=== PATIENT | female | born 1975 | race Caucasian/White ===

== ENCOUNTER 2016-11-02 13:29 | Observation (INO) | payer OTHER ==
[2016-11-02 13:36] VITALS: TEMP 98
[2016-11-02] MEDS ORDERED: ASPIRIN 81 MG CHEW PO STA (13:57)
[2016-11-02] MEDS ORDERED: NITROGLYCERIN OINT 1 INCH/GM PACKET TOPICAL STA (13:57)
--- NOTE | 2016-11-02 14:01 | ED ---
General Adult HPI - General Chief complaint: Chest Pain Stated complaint: chest pain/syncope/dizziness Source: patient, RN notes reviewed Mode of arrival: wheelchair Limitations: no limitations - History of Present Illness Initial comments: This is a 41-year-old female presents emergency Department complaining of chest pain for the last couple of days. Patient states it just occurs when she sitting around and under no stress or exertion. Patient states today she passed out on 2 occasions when she tried to stand up. Patient states she sat back down with passed out for a few seconds according to her mother and then she woke back up with some chest pain. Patient states she has not been short of breath associated with that she has had no diaphoresis associated with it. Patient denies any nausea or vomiting. Patient denies any headache patient denies numbness weakness. Patient denies any recent fever chills or cough. Patient denies any recent injury or trauma. - Related Data Home Medications Medication Instructions Recorded Confirmed ALPRAZolam [Xanax] 1 mg PO TID 11/02/16 11/02/16 Albuterol Inhaler [Ventolin Hfa 1 - 2 puff INHALATION RT-Q6H PRN 11/02/16 Inhaler] Cyclobenzaprine [Flexeril] 10 mg PO TID 11/02/16 11/02/16 HYDROcodone/APAP 10-325MG [[place] 1 tab PO QID PRN 11/02/16 11/02/16 10-325] QUEtiapine FUMARATE [SEROquel XR] 150 mg PO HS 11/02/16 11/02/16 traMADol HCL [Ultram] 50 mg PO Q4HR PRN 11/02/16 11/02/16 Allergies Allergy/AdvReac Type Severity Reaction Status Date / Time Penicillins Allergy Rash/Hives Verified 11/02/16 14:21 Review of Systems ROS Statement: Those systems with pertinent positive or pertinent negative responses have been documented in the HPI. ROS Other: All systems not noted in ROS Statement are negative. Past Medical History Additional Past Medical History / Comment(s): chronic back and neck pain History of Any Multi-Drug Resistant Organisms: None Reported Past Surgical History: Back Surgery Past Psychological History: No Psychological Hx Reported Smoking Status: Current every day smoker Past Alcohol Use History: None Reported Past Drug Use History: None Reported General Exam - General Exam Comments Initial Comments: GENERAL: Patient is well-developed and well-nourished. Patient is nontoxic and well- hydrated and is in mild distress. ENT: Neck is soft and supple. No significant lymphadenopathy is noted. Oropharynx is clear. Moist mucous membranes. Neck has full range of motion without eliciting any pain. EYES: The sclera were anicteric and conjunctiva were pink and moist. Extraocular movements were intact and pupils were equal round and reactive to light. Eyelids were unremarkable. PULMONARY: Unlabored respirations. Good breath sounds bilaterally. No audible rales rhonchi or wheezing was noted. CARDIOVASCULAR: There is a regular rate and rhythm without any murmurs gallops or rubs. ABDOMEN: Soft and nontender with normal bowel sounds. No palpable organomegaly was noted. There is no palpable pulsatile mass. SKIN: Skin is clear with no lesions or rashes and otherwise unremarkable. NEUROLOGIC: Patient is alert and oriented x3. Cranial nerves II through XII are grossly intact. Motor and sensory are also intact. Normal speech, volume and content. Symmetrical smile. MUSCULOSKELETAL: Normal extremities with adequate strength and full range of motion. No lower extremity swelling or edema. No calf tenderness. LYMPHATICS: No significant lymphadenopathy is noted PSYCHIATRIC: Normal psychiatric evaluation. Normal interpersonal interactions appears functionally intact in deals appropriately with others. No signs of depression. No signs of anxiety. Limitations: no limitations Course Vital Signs 11/02/16 11/02/16 11/02/16 13:34 14:56 14:57 Temperature 98 F Pulse Rate 80 Respiratory 20 Rate Blood Pressure 119/82 Blood Pressure 111/71 112/72 [Right Arm] O2 Sat by Pulse 100 Oximetry 11/02/16 15:00 Temperature Pulse Rate 84 Respiratory 20 Rate Blood Pressure 112/72 Blood Pressure [Right Arm] O2 Sat by Pulse 95 Oximetry Medical Decision Making - Medical Decision Making EKG shows normal sinus rhythm at 82 bpm NV interval is 122 QRS is 86 QT interval 378 QTC is 441 per patient's EKG shows no ST segment elevation or depression or T-wave abnormality is noted. Chest x-ray shows a right upper lobe mass. CAT scan of the chest shows a possible neoplasm in the right upper lobe no clots are noted. I spoke with the depression agreed to admit the patient admitted the patient I wrote admitting orders. - Lab Data Result diagrams: 11/02/16 13:42 11/02/16 13:42 Lab Results 11/02/16 11/02/16 11/02/16 Range/Units 13:42 13:42 13:42 WBC 7.5 (3.8-10.6) k/uL RBC 4.46 (3.80-5.40) m/uL Hgb 14.6 (11.4-16.0) gm/dL Hct 44.1 (34.0-46.0) % MCV 99.0 (80.0-100.0) fL MCH 32.8 (25.0-35.0) pg MCHC 33.1 (31.0-37.0) g/dL RDW 14.3 (11.5-15.5) % Plt Count 340 (150-450) k/uL Neutrophils % 64 % Lymphocytes % 27 % Monocytes % 3 % Eosinophils % 5 % Basophils % 0 % Neutrophils # 4.8 (1.3-7.7) k/uL Lymphocytes # 2.0 (1.0-4.8) k/uL Monocytes # 0.3 (0-1.0) k/uL Eosinophils # 0.4 (0-0.7) k/uL Basophils # 0.0 (0-0.2) k/uL PT (9.0-12.0) sec INR (<1.2) APTT (22.0-30.0) sec Sodium 138 (137-145) mmol/L Potassium 3.9 (3.5-5.1) mmol/L Chloride 104 (98-107) mmol/L Carbon Dioxide 24 (22-30) mmol/L Anion Gap 10 mmol/L BUN 7 (7-17) mg/dL Creatinine 0.65 (0.52-1.04) mg/dL Est GFR (MDRD) Af Amer >60 (>60 ml/min/1.73 sqM) Est GFR (MDRD) Non-Af >60 (>60 ml/min/1.73 sqM) Glucose 139 H (74-99) mg/dL Calcium 9.1 (8.4-10.2) mg/dL Magnesium 1.8 (1.6-2.3) mg/dL Total Bilirubin 0.4 (0.2-1.3) mg/dL AST 23 (14-36) U/L ALT 31 (9-52) U/L Alkaline Phosphatase 73 (38-126) U/L Total Creatine Kinase 45 (30-135) U/L CK-MB (CK-2) <0.2 (0.0-2.4) ng/mL CK-MB (CK-2) Rel Index Troponin I <0.012 (0.000-0.034) ng/mL Total Protein 6.8 (6.3-8.2) g/dL Albumin 4.1 (3.5-5.0) g/dL 11/02/16 Range/Units 13:42 WBC (3.8-10.6) k/uL RBC (3.80-5.40) m/uL Hgb (11.4-16.0) gm/dL Hct (34.0-46.0) % MCV (80.0-100.0) fL MCH (25.0-35.0) pg MCHC (31.0-37.0) g/dL RDW (11.5-15.5) % Plt Count (150-450) k/uL Neutrophils % % Lymphocytes % % Monocytes % % Eosinophils % % Basophils % % Neutrophils # (1.3-7.7) k/uL Lymphocytes # (1.0-4.8) k/uL Monocytes # (0-1.0) k/uL Eosinophils # (0-0.7) k/uL Basophils # (0-0.2) k/uL PT 9.9 (9.0-12.0) sec INR 1.0 (<1.2) APTT 23.3 (22.0-30.0) sec Sodium (137-145) mmol/L Potassium (3.5-5.1) mmol/L Chloride (98-107) mmol/L Carbon Dioxide (22-30) mmol/L Anion Gap mmol/L BUN (7-17) mg/dL Creatinine (0.52-1.04) mg/dL Est GFR (MDRD) Af Amer (>60 ml/min/1.73 sqM) Est GFR (MDRD) Non-Af (>60 ml/min/1.73 sqM) Glucose (74-99) mg/dL Calcium (8.4-10.2) mg/dL Magnesium (1.6-2.3) mg/dL Total Bilirubin (0.2-1.3) mg/dL AST (14-36) U/L ALT (9-52) U/L Alkaline Phosphatase (38-126) U/L Total Creatine Kinase (30-135) U/L CK-MB (CK-2) (0.0-2.4) ng/mL CK-MB (CK-2) Rel Index Troponin I (0.000-0.034) ng/mL Total Protein (6.3-8.2) g/dL Albumin (3.5-5.0) g/dL Disposition Clinical Impression: Mass of right lung Disposition: ADMITTED IP TO THIS HOSP Referrals: Bryan Caputo MD [Primary Care Provider] - 1-2 days Time of Disposition: 15:53
--- NOTE | 2016-11-02 14:20 | XR ---
EXAMINATION TYPE: XR chest 2V DATE OF EXAM: 11/02/2016 COMPARISON: NONE HISTORY: Chest pain. TECHNIQUE: Frontal and lateral views of the chest are obtained. FINDINGS: There is a 3.6 cm mass overlying the right upper lobe, thought to be located posteriorly o n the lateral image. There is a spiculated margin of this mass and internal air bronchograms includin g the segmental bronchi to the right upper lobe. No other discrete masses are appreciated. No pneumot horax or pleural effusion. The cardiac silhouette size is within normal limits. The osseous structu res are intact. IMPRESSION: 3.6 cm spiculated mass overlying the right upper lobe, concerning for pulmonary neoplasm . Enhanced CT thorax is recommended for further characterization, localization, and evaluation for ad enopathy.
[2016-11-02 14:22] LABS: Basophils % (A) 0 %; CH 32.7; CHCM 33.1; Eosinophils # (A) 0.4 k/uL (0-0.7); Eosinophils % (A) 5 %; HCT 44.1 % (34.0-46.0); HDW 2.12; HGB 14.6 gm/dL (11.4-16.0); Luc # (Auto) 0.07; Luc % (Auto) 1; Lymphocytes % (A) 27 %; MCH 32.8 pg (25.0-35.0); MCHC 33.1 g/dL (31.0-37.0); Mean Platelet Volume 7.3; Monocytes # (A) 0.3 k/uL (0-1.0); Monocytes % (A) 3 %; Neutrophils # (A) 4.8 k/uL (1.3-7.7); Neutrophils % (A) 64 %; RBC 4.46 m/uL (3.80-5.40); RDW 14.3 % (11.5-15.5); WBC 7.5 k/uL (3.8-10.6); WBC (Perox) 7.49
[2016-11-02 14:25] LABS: ALT 31 U/L (9-52); AST 23 U/L (14-36); Alkaline Phosphatase 73 U/L (38-126); Anion Gap 10 mmol/L; Blood Urea Nitrogen 7 mg/dL (7-17); Calcium 9.1 mg/dL (8.4-10.2); Carbon Dioxide 24 mmol/L (22-30); Chloride 104 mmol/L (98-107); Glucose 139 mg/dL (74-99); Magnesium 1.8 mg/dL (1.6-2.3); Non-African American GFR(MDRD) >60 (>60 ml/min/1.73 sqM); Potassium 3.9 mmol/L (3.5-5.1); Sodium 138 mmol/L (137-145); Total Bilirubin 0.4 mg/dL (0.2-1.3); Total Protein 6.8 g/dL (6.3-8.2)
[2016-11-02 14:27] LABS: Partial Thromboplastin Time 23.3 sec (22.0-30.0); Prothrombin Time 9.9 sec (9.0-12.0)
[2016-11-02 14:33] LABS: Creatine Kinase 45 U/L (30-135)
[2016-11-02] MEDS ORDERED: RX INFO: IV CONTRAST WAS GIVEN 1 EACH MISC MISCELLANE PRN (14:40)
[2016-11-02 14:45] LABS: Creatine Kinase MB <0.2 ng/mL (0.0-2.4); Troponin I <0.012 ng/mL (0.000-0.034)
--- NOTE | 2016-11-02 15:20 | CT ---
CT CHEST FOR PULMONARY EMBOLISM. EXAMINATION TYPE: CT chest angio for PE DATE OF EXAM: 11/02/2016 INDICATION: Pain syncope CT DLP: 460 mGycm, Automated exposure control for dose reduction was used. CONTRAST: Patient injected with 80 mL of Omnipaque 350. COMPARISON: NONE TECHNIQUE: CT of the chest is performed on a spiral scan at 2 mm thick sections. Study is performed with intravenous contrast timed for evaluation for pulmonary embolism. This will limit additional po rtions of the evaluation. 3-D MIP images reconstructed by the technologist are reviewed on the compu ter in the coronal and sagittal planes. FINDINGS: No persistent filling defects are evident to suggest an acute pulmonary embolism. Couple small pretracheal and aortopulmonic window lymph nodes are present. Enlarged lymphadenopathy i s not identified. Some subcarinal adenopathy may be present, not enlarged by CT criteria. The ascend ing aorta diameter at the level of the main pulmonary artery is 2.5 cm. The main pulmonary artery di ameter at the bifurcation is 2.7 cm. There is a 2.7 x 2.9 cm lobulated right upper lobe nodule. Limited CT section through the upper abdomen are unremarkable. IMPRESSIONS: 1. No acute pulmonary embolism. 2. Lobular right upper lobe mass. Findings are suspicious for neoplasm. Workup such as with PET/CT is recommended.
[2016-11-02] MEDS ORDERED: SODIUM CHLORIDE 0.9% 1,000 ML IV ONE (15:53)
[2016-11-02] MEDS ORDERED: traMADol 50 MG TAB PO PRN (16:48)
[2016-11-02] MEDS ORDERED: HYDROcodone/APAP 10-325MG 1 EACH TAB PO PRN (16:48)
[2016-11-02] MEDS ORDERED: IPRATROPIUM-ALBUTEROL 3 ML NEB INHALATION PRN (16:50)
[2016-11-02 16:53] VITALS: BP 108/72; PULSE 59; RESP 16
[2016-11-02] MEDS ORDERED: NICOTINE 21MG/24HR PATCH TRANSDERM SCH (17:00)
[2016-11-02] MEDS ORDERED: ALPRAZolam 0.5 MG TAB PO SCH (17:00)
[2016-11-02] MEDS ORDERED: CYCLOBENZAPRINE 10 MG TAB PO SCH (17:00)
[2016-11-03] MEDS ORDERED: ENOXAPARIN 40 MG/0.4 ML SYRINGE SQ SCH (09:00)
--- NOTE | 2016-11-18 18:50 | DS ---
HISTORY AND PHYSICAL EXAMINATION/DISCHARGE SUMMARY: DATE OF ADMISSION: 11/02/16 DATE LEFT AGAINST MEDICAL ADVICE: 11/02/16 FINAL DIAGNOSES: 1. Chest pain. 2. Anterior chest wall pain. HOSPITAL COURSE: This patient presented with chest pain and as soon as was admitted, decided to leave AGAINST MEDICAL ADVICE. The patient was not seen by me. For more details, refer to the ER notes. This is a history and physical examination and discharge summary not seen by me. GOOD
== END 2016-11-02 18:22 | disposition left against medical advice (07) ==
LOC: EC 13:29 → 5ONC 15:53 → INTOOBSV 15:53
PROVIDERS: ADMIT Hospitalist; ATTEND Hospitalist
DX: R91.8 Other nonspecific abnormal finding of lung field (principal); R07.89 Other chest pain; R55 Syncope and collapse; M54.9 Dorsalgia, unspecified; G89.29 Other chronic pain; M54.2 Cervicalgia; F17.200 Nicotine dependence, unspecified, uncomplicated; Z88.0 Allergy status to penicillin; Z53.21 Procedure and treatment not carried out due to patient leaving prior to being seen by health care provider; Z79.891 Long term (current) use of opiate analgesic; Z79.899 Other long term (current) drug therapy
CPT/HCPCS: 96360; 96361; 99285; 36415; 93005; 80053; 82550; 82553; 83735; 84484; 85025; 85610; 85730; 71020; 71275; G0378; Q9967

== ENCOUNTER → 2016-11-18 | Outpatient (CLI) | payer OTHER | END | disposition home or self-care (01) | LOC: RADPETMAIN 08:16 | PROVIDERS: ATTEND Family Medicine | DX: Z53.9 Procedure and treatment not carried out, unspecified reason (principal) ==

== ENCOUNTER → 2016-11-18 | Outpatient (CLI) | payer OTHER ==
--- NOTE | 2016-11-18 19:36 | MR ---
EXAMINATION TYPE: MR brain wo/w con DATE OF EXAM: 11/18/2016 COMPARISON: NONE HISTORY: Lung Ca / headaches CONTRAST: Performed utilizing 15 mL intravenous MultiHance gadolinium contrast. TECHNIQUE: Multiplanar, multiecho imaging on a 3.0 Tiffanie magnet is performed through the brain. Stud y is performed within 24 hours of arrival to the hospital. The craniovertebral junction is normal. The pituitary is normal. Left A1 segment is not well visual ized. Diffusion-weighted imaging is performed. No abnormal hyperintensity is present to suggest an acute i ntracranial infarct or acute ischemic change. There are scattered punctate areas of hyperintensity on T2 and Inversion Recovery weighted sequences which are non-specific but can be related to microvascular ischemic changes. Ventricles and sulci are appropriate for the patient age. There is mucosal thickening through the right maxillary sinus. Scattered ethmoid air cell mucosal thi ckening is present. Minimal mucosal thickening may be within the frontal sinuses. IMPRESSIONS: 1. No suspicious changes of metastatic disease. 2. No abnormal changes to account for patient headache.
--- NOTE | 2016-11-19 08:49 | PE ---
EXAMINATION TYPE: PET CT fusion skull to thigh DATE OF EXAM: 11/18/2016 COMPARISON: CTA chest 11/02/2016 Prior PET/CT: None HISTORY: Right upper lobe mass TECHNIQUE: Following the intravenous administration of 14.9 mCi of F-18 FDG, whole body images are p erformed from the skull base to the midthigh. Images are reviewed on the computer in the coronal, ax ial, and sagittal planes. Reconstructed rotating images are created on independent workstation and r eviewed on the computer. A localization and attenuation correction CT is performed in conjunction w ith the PET scan. DLP: 263.85 mGycm SCAN: Initial Blood glucose: 95 mg/dL Average Mediastinum SUV: 1.6 Average Liver SUV: 2.2 FINDINGS: NECK: There is some focal uptake at the right acromioclavicular junction, likely inflammatory degene rative change. This measures 1.9 SUV. THORAX: There is intense uptake within the posterior right upper lobe lung mass with an SUV value of 18 compatible with neoplasm. There is a right axillary lymph node with intermediate uptake 1.4. This could be related to inflammat ory change. A metastatic lesion is not entirely excluded. No suspicious mediastinal or hilar uptake is evident. Remainder of the lungs appear clear. ABDOMEN: No suspicious uptake. The liver is heterogenous limiting the evaluation. PELVIS: No abnormal uptake OSSEOUS STRUCTURES: There is some mild uptake above the left femoral head within the acetabulum may b e degenerative in nature. Suspicious focal uptake to suggest metastatic lesion considered less likely . Inflammatory change within SUV value 1.8 is at the left L5-S1 disc space. Suspicious uptake within the osseous structures is not identified. LOCALIZATION CT: The ascending thoracic aorta at the level the main pulmonary artery is 2.7 cm. The m ain pulmonary artery at the bifurcation is 3.4 cm. Consider pulmonary hypertension differential. COMPARISON: Lung mass in the posterior medial right upper lobe measuring 3.0 x 3.4 cm has enlarged ov er the interval from 11/02/2016. IMPRESSION: 1. Posterior right upper lobe mass with marked SUV elevation compatible with a primary neoplasm. 2. Suspicious changes for metastatic disease is not identified.
== END | disposition home or self-care (01) ==
LOC: RADMRIMAIN 07:20
PROVIDERS: ATTEND Internal Medicine Hematology & Oncology
DX: C34.11 Malignant neoplasm of upper lobe, right bronchus or lung (principal); R51 Headache
CPT/HCPCS: 78815; 70553; A9552; A9577

== ENCOUNTER → 2016-11-24 | Outpatient (CLI) | payer OTHER ==
--- NOTE | 2016-11-24 16:55 | ECHOF ---
Referral Reason:R07.9 Chest Pain MEASUREMENTS -------- HEIGHT: 165.1 cm WEIGHT: 66.7 kg BP: 133/70 RVIDd: 1.8 cm (< 3.3) IVSd: 1.0 cm (0.6 - 1.1) LVIDd: 4.7 cm (3.9 - 5.3) LVPWd: 1.0 cm (0.6 - 1.1) IVSs: 1.3 cm LVIDs: 3.5 cm LVPWs: 1.2 cm LAESV Index (A-L): 16.83 ml/m Ao Diam: 2.7 cm (2.0 - 3.7) AV Cusp: 1.6 cm (1.5 - 2.6) LA Diam: 1.8 cm (2.7 - 3.8) MV EXCURSION: 23.948 mm (> 18.000) MV EF SLOPE: 181 mm/s (70 - 150) EPSS: 1.1 cm MV E Brock: 0.76 m/s MV DecT: 292 ms MV A Brock: 0.60 m/s MV E/A Ratio: 1.27 RAP: 5.00 mmHg RVSP: 18.74 mmHg FINDINGS -------- Sinus rhythm. This was a technically good study. Overall left ventricular systolic function is normal with, an EF between 60 - 65 %. The right ventricle is normal in size and function. Normal LA size by volume 22+/-6 ml/m2. The right atrium is normal in size. There is mild aortic valve sclerosis. There is no evidence of aortic regurgitation. There is no evidence of aortic stenosis. The mitral valve is normal. There is trace mitral regurgitation. Trace tricuspid regurgitation present. There is no evidence of pulmonary hypertension. The right ventricular systolic pressure, as measured by Doppler, is 18.74mmHg. Trace/mild (physiologic) pulmonic regurgitation. The aortic root size is normal. Normal inferior vena cava with normal inspiratory collapse consistent with estimated right atrial pressure of 5 mmHg. The pericardium is normal. There is no pericardial effusion. CONCLUSIONS -------- 1. Sinus rhythm. 2. Trace/mild (physiologic) pulmonic regurgitation. 3. The aortic root size is normal. 4. There is no pericardial effusion. 5. This was a technically good study. 6. Overall left ventricular systolic function is normal with, an EF between 60 - 65 %. 7. Normal LA size by volume 22+/-6 ml/m2. 8. There is mild aortic valve sclerosis. 9. There is trace mitral regurgitation. 10. Trace tricuspid regurgitation present. 11. There is no evidence of pulmonary hypertension. 12. The right ventricular systolic pressure, as measured by Doppler, is 18.74mmHg. MINISTER ASSISTANT: Jamal Gastelum RDCS
== END | disposition home or self-care (01) ==
LOC: RADECHMAIN 14:23
PROVIDERS: ATTEND Family Medicine
DX: I08.1 Rheumatic disorders of both mitral and tricuspid valves (principal); R07.9 Chest pain, unspecified
CPT/HCPCS: 93306

== ENCOUNTER 2016-12-04 01:35 | Emergency (ER) | payer OTHER ==
[2016-12-04] MEDS ORDERED: ALBUTEROL NEBULIZED 2.5 MG/3 ML INHALATION STA (01:53)
--- NOTE | 2016-12-04 01:57 | ED ---
General Adult HPI - General Chief complaint: Chest Pain Stated complaint: HUBER Time Seen by Provider: 12/04/16 01:36 Source: patient, family, EMS, RN notes reviewed, old records reviewed Mode of arrival: EMS Limitations: no limitations - History of Present Illness Initial comments: 41-year-old female presents with a one month history of difficulty breathing and chest tightness. Patient has recent diagnosis of lung cancer and is currently awaiting medical clearance prior to resection. She is not on chemotherapy. She was also diagnosed with emphysema. She does have a long history of smoking, currently smoking half pack of cigarettes daily. Additional past medical history of chronic pain for which she takes multiple medications. She has no history of heart disease. She denies cough denies fever. Denies any radiating chest pain. Denies lower extremity swelling or tenderness. Patient's symptoms have not changed over the last month. She has been seen both at this hospital and outside hospital for the same symptoms. - Related Data Home Medications Medication Instructions Recorded Confirmed ALPRAZolam [Xanax] 1 mg PO TID 11/02/16 12/04/16 Albuterol Inhaler [Ventolin Hfa 1 - 2 puff INHALATION RT-Q6H PRN 11/02/16 Inhaler] Cyclobenzaprine [Flexeril] 10 mg PO TID 11/02/16 12/04/16 HYDROcodone/APAP 10-325MG [[place] 1 tab PO QID PRN 11/02/16 12/04/16 10-325] QUEtiapine FUMARATE [SEROquel XR] 150 mg PO HS 11/02/16 12/04/16 traMADol HCL [Ultram] 50 mg PO Q4HR PRN 11/02/16 12/04/16 Previous Rx's Medication Instructions Recorded Albuterol Inhaler [Ventolin Hfa 1 - 2 puff INHALATION Q4HR PRN #1 12/04/16 Inhaler] inhaler Allergies Allergy/AdvReac Type Severity Reaction Status Date / Time Penicillins Allergy Rash/Hives Verified 12/04/16 01:39 Review of Systems ROS Statement: Those systems with pertinent positive or pertinent negative responses have been documented in the HPI. ROS Other: All systems not noted in ROS Statement are negative. Past Medical History Past Medical History: Asthma, Rheumatoid Arthritis (RA) Additional Past Medical History / Comment(s): chronic back and neck pain History of Any Multi-Drug Resistant Organisms: None Reported Past Surgical History: Back Surgery, Breast Surgery Additional Past Surgical History / Comment(s): fibrotic tumor -breast removed. Past Anesthesia/Blood Transfusion Reactions: No Reported Reaction Additional Past Anesthesia/Blood Transfusion Reaction / Comment(s): calusterphobia Past Psychological History: No Psychological Hx Reported Smoking Status: Current every day smoker Past Alcohol Use History: None Reported Past Drug Use History: None Reported - Past Family History Mother Family Medical History: Blood Disorder Additional Family Medical History / Comment(s): factor V leiden Father Additional Family Medical History / Comment(s): from complications of mrsa infection General Exam Limitations: no limitations General appearance: alert, in no apparent distress Head exam: Present: atraumatic, normocephalic Eye exam: Present: normal appearance, PERRL ENT exam: Present: normal exam, mucous membranes moist Neck exam: Present: normal inspection. Absent: tenderness Respiratory exam: Present: normal lung sounds bilaterally. Absent: respiratory distress, wheezes Cardiovascular Exam: Present: regular rate, normal rhythm GI/Abdominal exam: Present: soft. Absent: distended, tenderness, guarding Extremities exam: Present: normal inspection, full ROM, normal capillary refill. Absent: pedal edema Back exam: Present: normal inspection Neurological exam: Present: alert, oriented X3 Psychiatric exam: Present: normal affect, normal mood Skin exam: Present: warm, dry. Absent: cyanosis, diaphoretic, erythema Course Vital Signs 12/04/16 12/04/16 12/04/16 01:36 01:40 01:54 Temperature 98.3 F Pulse Rate 91 85 Respiratory 20 22 22 Rate Blood Pressure 118/70 110/65 O2 Sat by Pulse 97 97 Oximetry 12/04/16 12/04/16 12/04/16 02:13 02:32 02:33 Temperature Pulse Rate 85 97 92 Respiratory 18 Rate Blood Pressure 117/69 O2 Sat by Pulse 97 Oximetry 12/04/16 12/04/16 03:00 04:00 Temperature Pulse Rate 99 92 Respiratory 16 16 Rate Blood Pressure 114/79 98/53 O2 Sat by Pulse 97 95 Oximetry EKG Findings - EKG Comments: EKG Findings:: EKG shows normal sinus rhythm, ventricular rate 90,. 132, QS duration 82, QTC 445, no ST segment elevation or depression, no T-wave abnormality. Medical Decision Making - Medical Decision Making 41-year-old female presenting with a one month history of shortness of breath. Patient was recently diagnosed with right upper lobe lung cancer and new diagnosis of emphysema. She is a long-time smoker. She is not being treated for her emphysema. She has a plan for surgical resection of lung mass. Symptoms have been unchanged for one month. She is simply seeking reevaluation is feeling. EKG is obtained, shows normal sinus rhythm with signs of ischemia. Laboratory studies include CBC, CMP, cardiac enzymes and d-dimer are within normal limits. Chest x-ray does show stable 3.6 cm right upper lobe mass. This is previously diagnosed. Patient feels significantly better after albuterol treatment. She did not have wheezing on examination but did have prolonged expiration. 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 Return to the emergency department with worsening symptoms. Diagnosis: COPD - Lab Data Result diagrams: 12/04/16 01:40 12/04/16 01:40 Lab Results 12/04/16 12/04/16 12/04/16 Range/Units 01:40 01:40 01:40 WBC 7.8 (3.8-10.6) k/uL RBC 4.33 (3.80-5.40) m/uL Hgb 14.0 (11.4-16.0) gm/dL Hct 42.1 (34.0-46.0) % MCV 97.1 (80.0-100.0) fL MCH 32.4 (25.0-35.0) pg MCHC 33.4 (31.0-37.0) g/dL RDW 14.2 (11.5-15.5) % Plt Count 334 (150-450) k/uL Neutrophils % 42 % Lymphocytes % 43 % Monocytes % 4 % Eosinophils % 7 % Basophils % 1 % Neutrophils # 3.3 (1.3-7.7) k/uL Lymphocytes # 3.4 (1.0-4.8) k/uL Monocytes # 0.3 (0-1.0) k/uL Eosinophils # 0.5 (0-0.7) k/uL Basophils # 0.1 (0-0.2) k/uL APTT 24.0 (22.0-30.0) sec D-Dimer 0.57 (<0.60) mg/L FEU Sodium 144 (137-145) mmol/L Potassium 3.9 (3.5-5.1) mmol/L Chloride 111 H (98-107) mmol/L Carbon Dioxide 19 L (22-30) mmol/L Anion Gap 14 mmol/L BUN 6 L (7-17) mg/dL Creatinine 0.60 (0.52-1.04) mg/dL Est GFR (MDRD) Af Amer >60 (>60 ml/min/1.73 sqM) Est GFR (MDRD) Non-Af >60 (>60 ml/min/1.73 sqM) Glucose 81 (74-99) mg/dL Calcium 8.8 (8.4-10.2) mg/dL Magnesium 1.9 (1.6-2.3) mg/dL Total Bilirubin 0.3 (0.2-1.3) mg/dL AST 25 (14-36) U/L ALT 40 (9-52) U/L Alkaline Phosphatase 70 (38-126) U/L Total Creatine Kinase (30-135) U/L CK-MB (CK-2) (0.0-2.4) ng/mL CK-MB (CK-2) Rel Index Total Protein 7.1 (6.3-8.2) g/dL Albumin 4.2 (3.5-5.0) g/dL Urine Color Urine Appearance (Clear) Urine pH (5.0-8.0) Ur Specific [place] (1.001-1.035) Urine Protein (Negative) Urine Glucose (UA) (Negative) Urine Ketones (Negative) Urine Blood (Negative) Urine Nitrite (Negative) Urine Bilirubin (Negative) Urine Urobilinogen (<2.0) mg/dL Ur Leukocyte Esterase (Negative) Urine RBC (0-5) /hpf Urine WBC (0-5) /hpf Ur Squamous Epith Cells (0-4) /hpf Urine Bacteria (None) /hpf Urine Mucus (None) /hpf 12/04/16 12/04/16 Range/Units 01:40 02:11 WBC (3.8-10.6) k/uL RBC (3.80-5.40) m/uL Hgb (11.4-16.0) gm/dL Hct (34.0-46.0) % MCV (80.0-100.0) fL MCH (25.0-35.0) pg MCHC (31.0-37.0) g/dL RDW (11.5-15.5) % Plt Count (150-450) k/uL Neutrophils % % Lymphocytes % % Monocytes % % Eosinophils % % Basophils % % Neutrophils # (1.3-7.7) k/uL Lymphocytes # (1.0-4.8) k/uL Monocytes # (0-1.0) k/uL Eosinophils # (0-0.7) k/uL Basophils # (0-0.2) k/uL APTT (22.0-30.0) sec D-Dimer (<0.60) mg/L FEU Sodium (137-145) mmol/L Potassium (3.5-5.1) mmol/L Chloride (98-107) mmol/L Carbon Dioxide (22-30) mmol/L Anion Gap mmol/L BUN (7-17) mg/dL Creatinine (0.52-1.04) mg/dL Est GFR (MDRD) Af Amer (>60 ml/min/1.73 sqM) Est GFR (MDRD) Non-Af (>60 ml/min/1.73 sqM) Glucose (74-99) mg/dL Calcium (8.4-10.2) mg/dL Magnesium (1.6-2.3) mg/dL Total Bilirubin (0.2-1.3) mg/dL AST (14-36) U/L ALT (9-52) U/L Alkaline Phosphatase (38-126) U/L Total Creatine Kinase 45 (30-135) U/L CK-MB (CK-2) 0.3 (0.0-2.4) ng/mL CK-MB (CK-2) Rel Index 0.7 Total Protein (6.3-8.2) g/dL Albumin (3.5-5.0) g/dL Urine Color Colorless Urine Appearance Clear (Clear) Urine pH 5.0 (5.0-8.0) Ur Specific [place] 1.001 (1.001-1.035) Urine Protein Negative (Negative) Urine Glucose (UA) Negative (Negative) Urine Ketones Negative (Negative) Urine Blood Small H (Negative) Urine Nitrite Negative (Negative) Urine Bilirubin Negative (Negative) Urine Urobilinogen <2.0 (<2.0) mg/dL Ur Leukocyte Esterase Negative (Negative) Urine RBC <1 (0-5) /hpf Urine WBC 1 (0-5) /hpf Ur Squamous Epith Cells <1 (0-4) /hpf Urine Bacteria Many H (None) /hpf Urine Mucus Rare H (None) /hpf Disposition Clinical Impression: Mass of right lung, COPD (chronic obstructive pulmonary disease) Disposition: HOME SELF-CARE Condition: Good Instructions: Emphysema (ED) Prescriptions: Albuterol Inhaler [Ventolin Hfa Inhaler] 1 - 2 puff INHALATION Q4HR PRN #1 inhaler PRN Reason: Shortness Of Breath Referrals: Bryan Caputo MD [Primary Care Provider] - 1-2 days Time of Disposition: 04:20
[2016-12-04 02:05] LABS: Basophils # (A) 0.1 k/uL (0-0.2); Basophils % (A) 1 %; CH 33.1; CHCM 34.2; Eosinophils # (A) 0.5 k/uL (0-0.7); Eosinophils % (A) 7 %; HCT 42.1 % (34.0-46.0); HDW 2.17; Luc # (Auto) 0.26; Luc % (Auto) 3; Lymphocytes # (A) 3.4 k/uL (1.0-4.8); Lymphocytes % (A) 43 %; MCH 32.4 pg (25.0-35.0); MCHC 33.4 g/dL (31.0-37.0); MCV 97.1 fL (80.0-100.0); Mean Platelet Volume 7.1; Monocytes # (A) 0.3 k/uL (0-1.0); Monocytes % (A) 4 %; Neutrophils # (A) 3.3 k/uL (1.3-7.7); Neutrophils % (A) 42 %; RBC 4.33 m/uL (3.80-5.40); RDW 14.2 % (11.5-15.5); WBC 7.8 k/uL (3.8-10.6); WBC (Perox) 7.74
[2016-12-04 02:18] LABS: ALT 40 U/L (9-52); AST 25 U/L (14-36); Alkaline Phosphatase 70 U/L (38-126); Anion Gap 14 mmol/L; Calcium 8.8 mg/dL (8.4-10.2); Carbon Dioxide 19 mmol/L (22-30); Chloride 111 mmol/L (98-107); Glucose 81 mg/dL (74-99); Magnesium 1.9 mg/dL (1.6-2.3); Non-African American GFR(MDRD) >60 (>60 ml/min/1.73 sqM); Potassium 3.9 mmol/L (3.5-5.1); Sodium 144 mmol/L (137-145); Total Bilirubin 0.3 mg/dL (0.2-1.3); Total Protein 7.1 g/dL (6.3-8.2)
[2016-12-04 02:19] LABS: Blood Urea Nitrogen 6 mg/dL (7-17)
[2016-12-04 02:27] LABS: Appearance,Urine Clear (Clear); Bacteria,Urine Many /hpf; Bilirubin,Urine Negative (Negative); Glucose,Urine (UA) Negative (Negative); Ketones,Urine Negative (Negative); Leukocyte Esterase,Urine Negative (Negative); Mucus,Urine Rare /hpf; Nitrite,Urine Negative (Negative); Particle Count 3300; Protein,Urine Negative (Negative); RBC,Urine <1 /hpf (0-5); Specific Gravity,Urine 1.001 (1.001-1.035); Squamous Epithelial Cell,Urine <1 /hpf (0-4); UA Billing (MACRO vs. MICRO) MICRO; Urobilinogen,Urine <2.0 mg/dL (<2.0); WBC,Urine 1 /hpf (0-5)
[2016-12-04 02:35] LABS: Creatine Kinase MB 0.3 ng/mL (0.0-2.4)
--- NOTE | 2016-12-04 03:27 | XR ---
EXAM: XR Chest, 2 Views CLINICAL HISTORY: Difficulty breathing TECHNIQUE: Frontal and lateral views of the chest. COMPARISON: No relevant prior studies available. FINDINGS: Lungs: Stable 3.6 cm opacity overlying the right upper lobe. This is grossly unchanged compared to the prior. Findings may represent an inflammatory or infectious process with neoplasm not excluded. Pleural space: Unremarkable. No pneumothorax. Heart: Unremarkable. No cardiomegaly. Mediastinum: Unremarkable. Bones/joints: Unremarkable. IMPRESSION: Stable 3.6 cm opacity overlying the right upper lobe. This is grossly unchanged compared to the prior. Findings may represent an inflammatory or infectious process with neoplasm not excluded. Again consider CT with contrast of the chest for further evaluation.
[2016-12-04 05:29] VITALS: BP 90/55; PULSE 90; RESP 18; TEMP 97.7
== END 2016-12-04 05:29 | disposition home or self-care (01) ==
LOC: EC 01:35
DX: J44.9 Chronic obstructive pulmonary disease, unspecified (principal); R91.8 Other nonspecific abnormal finding of lung field; R07.89 Other chest pain; M06.9 Rheumatoid arthritis, unspecified; F17.210 Nicotine dependence, cigarettes, uncomplicated; Z85.118 Personal history of other malignant neoplasm of bronchus and lung; Z79.899 Other long term (current) drug therapy; Z88.0 Allergy status to penicillin
CPT/HCPCS: 36415; 71020; 80053; 81001; 82550; 82553; 83735; 84484; 85025; 85379; 85730; 93005; 94640; 99285

== ENCOUNTER 2017-01-25 23:34 | Observation (INO) | payer OTHER ==
--- NOTE | 2017-01-26 00:33 | XR ---
EXAMINATION TYPE: XR chest 2V DATE OF EXAM: 01/26/2017 COMPARISON: 12/04/2016 HISTORY: Chest pain TECHNIQUE: Frontal and lateral views of the chest are obtained. FINDINGS: There is increased density in the right upper lobe above the right pulmonary hilum with ap parent fluid level. There is pleural thickening on the right lateral chest wall. There is some blunti ng of right costophrenic angle. Heart size is normal. Left lung is fairly clear. IMPRESSION: Right upper lobe infiltrate with pleural thickening and fluid level. The possibility of a lung abscess should be considered. Chest appears worse than last exam. There is probably loculated pleural fluid. The previous chest x-ray shows a 3 cm somewhat rounded infiltrate in the posterior segment of the rig ht upper lobe that is not evident on today's exam.
[2017-01-26 00:45] LABS: Basophils % (A) 0 %; CH 31.9; CHCM 32.2; Eosinophils % (A) 5 %; HCT 39.6 % (34.0-46.0); HDW 2.24; HGB 12.1 gm/dL (11.4-16.0); Luc # (Auto) 0.06; Luc % (Auto) 0; Lymphocytes # (A) 1.4 k/uL (1.0-4.8); Lymphocytes % (A) 8 %; MCH 30.4 pg (25.0-35.0); MCHC 30.5 g/dL (31.0-37.0); MCV 99.9 fL (80.0-100.0); Mean Platelet Volume 6.2; Monocytes # (A) 0.3 k/uL (0-1.0); Monocytes % (A) 2 %; Neutrophils # (A) 15.4 k/uL (1.3-7.7); Neutrophils % (A) 85 %; RBC 3.97 m/uL (3.80-5.40); RDW 13.6 % (11.5-15.5); WBC 18.2 k/uL (3.8-10.6); WBC (Perox) 18.14
[2017-01-26 00:55] LABS: ALT 73 U/L (9-52); AST 59 U/L (14-36); Alkaline Phosphatase 209 U/L (38-126); Anion Gap 13 mmol/L; Blood Urea Nitrogen 7 mg/dL (7-17); Calcium 9.5 mg/dL (8.4-10.2); Carbon Dioxide 23 mmol/L (22-30); Chloride 102 mmol/L (98-107); Glucose 89 mg/dL (74-99); Magnesium 1.7 mg/dL (1.6-2.3); Non-African American GFR(MDRD) >60 (>60 ml/min/1.73 sqM); Potassium 4.2 mmol/L (3.5-5.1); Sodium 138 mmol/L (137-145); Total Bilirubin 0.2 mg/dL (0.2-1.3); Total Protein 6.5 g/dL (6.3-8.2)
[2017-01-26 00:57] LABS: Partial Thromboplastin Time 23.4 sec (22.0-30.0); Prothrombin Time 9.8 sec (9.0-12.0)
[2017-01-26] MEDS ORDERED: HYDROcodone/APAP 10-325MG 1 EACH TAB PO ONE (01:09)
--- NOTE | 2017-01-26 02:18 | ED ---
General Adult HPI - General Chief complaint: Recheck/Abnormal Lab/Rx Stated complaint: Post Op Complications Time Seen by Provider: 01/25/17 23:39 Source: patient, EMS Mode of arrival: EMS Limitations: no limitations - History of Present Illness Initial comments: this patient is a 41-year-old woman who is complaining of shortness of breath, cough, and drainage from her thoracotomy site. The patient relates that she had been at [facility] where she had right upper lobectomy for lung cancer. Patient states that she had been discharged less than 24 hours ago , however when she went home she noticed that she was having a fever, she was having a little bit of cough and shortness of breath, and she states that there was some drainage from her thoracostomy site. -: hour(s) Location: chest Quality: aching Consistency: constant Improves with: none Worsens with: movement, other (deep breath) Associated Symptoms: cough, fever/chills Treatments Prior to Arrival: none - Related Data Home Medications Medication Instructions Recorded Confirmed ALPRAZolam [Xanax] 1 mg PO Q8H PRN 11/02/16 01/25/17 Albuterol Inhaler [Ventolin Hfa 1 - 2 puff INHALATION RT-Q6H PRN 11/02/16 Inhaler] HYDROcodone/APAP 10-325MG [[place] 1 tab PO Q6H PRN 11/02/16 01/25/17 10-325] QUEtiapine FUMARATE [SEROquel XR] 150 mg PO HS 11/02/16 01/25/17 traMADol HCL [Ultram] 50 mg PO Q6H PRN 11/02/16 01/25/17 Albuterol Inhaler [Ventolin Hfa 2 puff INHALATION RT-Q6H PRN 01/25/17 01/25/17 Inhaler] Cetirizine HCl [Zyrtec] 10 mg PO HS 01/25/17 01/25/17 Docusate Sodium [Dok] 100 mg PO HS PRN 01/25/17 01/25/17 Ibuprofen [Motrin] 600 mg PO Q6H PRN 01/25/17 01/25/17 Loratadine [Claritin] 10 mg PO DAILY 01/25/17 01/25/17 Naproxen 500 mg PO Q12H PRN 01/25/17 01/25/17 SUMAtriptan SUCCINATE [Imitrex] 50 mg PO Q2H PRN 01/25/17 01/25/17 Sennosides [Senokot] 8.6 mg PO DAILY PRN 01/25/17 01/25/17 buPROPion [Wellbutrin] 75 mg PO DAILY 01/25/17 01/25/17 Allergies Allergy/AdvReac Type Severity Reaction Status Date / Time Penicillins Allergy Rash/Hives Verified 01/25/17 23:49 Review of Systems ROS Statement: Those systems with pertinent positive or pertinent negative responses have been documented in the HPI. ROS Other: All systems not noted in ROS Statement are negative. Constitutional: Reports: fever. Denies: chills, weakness Respiratory: Reports: cough, dyspnea, wheezes. Denies: hemoptysis Cardiovascular: Reports: chest pain. Denies: palpitations, orthopnea, edema, syncope Gastrointestinal: Denies: abdominal pain, vomiting Genitourinary: Denies: dysuria, hematuria Musculoskeletal: Reports: back pain Skin: Denies: rash Neurological: Denies: headache, weakness Past Medical History Past Medical History: Asthma, Cancer, Rheumatoid Arthritis (RA) Additional Past Medical History / Comment(s): emphysema,chronic back and neck pain, Lung Cancer History of Any Multi-Drug Resistant Organisms: None Reported Past Surgical History: Back Surgery, Breast Surgery Additional Past Surgical History / Comment(s): fibrotic tumor -breast removed, right upper lobectomy Past Anesthesia/Blood Transfusion Reactions: No Reported Reaction Additional Past Anesthesia/Blood Transfusion Reaction / Comment(s): calusterphobia Past Psychological History: No Psychological Hx Reported Smoking Status: Former smoker Past Alcohol Use History: None Reported, Occasional Past Drug Use History: None Reported - Past Family History Mother Family Medical History: Blood Disorder Additional Family Medical History / Comment(s): factor V leiden Father Additional Family Medical History / Comment(s): from complications of mrsa infection General Exam Limitations: no limitations General appearance: alert, in no apparent distress Head exam: Present: atraumatic, normocephalic Eye exam: Present: normal appearance. Absent: scleral icterus, conjunctival injection ENT exam: Present: normal oropharynx Neck exam: Present: normal inspection Respiratory exam: Present: wheezes (mild expiratory wheeze), chest wall tenderness, other (patient has a surgical scar to the right posterior chest wall consistent with lobectomy. Incision clean dry and intact. No erythema, warmth or drainage). Absent: respiratory distress, rales, rhonchi, stridor, accessory muscle use Cardiovascular Exam: Present: normal rhythm, tachycardia (heart rate approximately 14 my exam), normal heart sounds. Absent: systolic murmur, diastolic murmur, rubs, gallop GI/Abdominal exam: Present: soft. Absent: distended, tenderness, guarding, rebound, mass Extremities exam: Present: normal inspection, normal capillary refill. Absent: pedal edema, calf tenderness Back exam: Present: normal inspection. Absent: CVA tenderness (R), CVA tenderness (L) Neurological exam: Present: alert Skin exam: Present: warm, dry, intact, normal color. Absent: rash Course Vital Signs 01/25/17 01/25/17 01/26/17 23:35 23:49 02:00 Temperature 99.1 F 97.8 F Pulse Rate 106 H 98 Respiratory 18 20 18 Rate Blood Pressure 115/64 105/58 O2 Sat by Pulse 97 98 Oximetry 01/26/17 03:00 Temperature Pulse Rate 92 Respiratory 18 Rate Blood Pressure 100/55 O2 Sat by Pulse 97 Oximetry EKG Findings - EKG Results: EKG: interpreted by LILIAM REBOLLEDO, sinus rhythm (Rate 96 bpm), normal axis, normal QRS, normal ST/T, no acute changes - ND, Pacemaker, Normal: Normal tracing: normal tracing Medical Decision Making - Lab Data Result diagrams: 01/26/17 07:42 01/26/17 07:42 Lab Results 01/26/17 01/26/17 01/26/17 Range/Units 00:38 00:38 00:38 WBC 18.2 H (3.8-10.6) k/uL RBC 3.97 (3.80-5.40) m/uL Hgb 12.1 (11.4-16.0) gm/dL Hct 39.6 (34.0-46.0) % MCV 99.9 (80.0-100.0) fL MCH 30.4 (25.0-35.0) pg MCHC 30.5 L (31.0-37.0) g/dL RDW 13.6 (11.5-15.5) % Plt Count 788 H D (150-450) k/uL Neutrophils % 85 % Lymphocytes % 8 % Monocytes % 2 % Eosinophils % 5 % Basophils % 0 % Neutrophils # 15.4 H (1.3-7.7) k/uL Lymphocytes # 1.4 (1.0-4.8) k/uL Monocytes # 0.3 (0-1.0) k/uL Eosinophils # 1.0 H (0-0.7) k/uL Basophils # 0.0 (0-0.2) k/uL PT 9.8 (9.0-12.0) sec INR 1.0 (<1.2) APTT 23.4 (22.0-30.0) sec Sodium 138 (137-145) mmol/L Potassium 4.2 (3.5-5.1) mmol/L Chloride 102 (98-107) mmol/L Carbon Dioxide 23 (22-30) mmol/L Anion Gap 13 mmol/L BUN 7 (7-17) mg/dL Creatinine 0.60 (0.52-1.04) mg/dL Est GFR (MDRD) Af Amer >60 (>60 ml/min/1.73 sqM) Est GFR (MDRD) Non-Af >60 (>60 ml/min/1.73 sqM) Glucose 89 (74-99) mg/dL Calcium 9.5 (8.4-10.2) mg/dL Magnesium 1.7 (1.6-2.3) mg/dL Total Bilirubin 0.2 (0.2-1.3) mg/dL AST 59 H (14-36) U/L ALT 73 H (9-52) U/L Alkaline Phosphatase 209 H (38-126) U/L Troponin I (0.000-0.034) ng/mL Total Protein 6.5 (6.3-8.2) g/dL Albumin 3.6 (3.5-5.0) g/dL 01/26/17 Range/Units 00:38 WBC (3.8-10.6) k/uL RBC (3.80-5.40) m/uL Hgb (11.4-16.0) gm/dL Hct (34.0-46.0) % MCV (80.0-100.0) fL MCH (25.0-35.0) pg MCHC (31.0-37.0) g/dL RDW (11.5-15.5) % Plt Count (150-450) k/uL Neutrophils % % Lymphocytes % % Monocytes % % Eosinophils % % Basophils % % Neutrophils # (1.3-7.7) k/uL Lymphocytes # (1.0-4.8) k/uL Monocytes # (0-1.0) k/uL Eosinophils # (0-0.7) k/uL Basophils # (0-0.2) k/uL PT (9.0-12.0) sec INR (<1.2) APTT (22.0-30.0) sec Sodium (137-145) mmol/L Potassium (3.5-5.1) mmol/L Chloride (98-107) mmol/L Carbon Dioxide (22-30) mmol/L Anion Gap mmol/L BUN (7-17) mg/dL Creatinine (0.52-1.04) mg/dL Est GFR (MDRD) Af Amer (>60 ml/min/1.73 sqM) Est GFR (MDRD) Non-Af (>60 ml/min/1.73 sqM) Glucose (74-99) mg/dL Calcium (8.4-10.2) mg/dL Magnesium (1.6-2.3) mg/dL Total Bilirubin (0.2-1.3) mg/dL AST (14-36) U/L ALT (9-52) U/L Alkaline Phosphatase (38-126) U/L Troponin I <0.012 (0.000-0.034) ng/mL Total Protein (6.3-8.2) g/dL Albumin (3.5-5.0) g/dL Disposition Clinical Impression: Pneumonia Disposition: ADMITTED IP TO THIS HOSP Condition: Fair
[2017-01-26] MEDS ORDERED: PNEUMONIA PROTOCOL UTILIZED 1 EACH MISC PO PRN (02:45)
[2017-01-26] MEDS ORDERED: LEVOFLOXACIN 750MG-D5W PMX 750 MG in DEXTROSE/WATER 1 150ML.BAG IVPB STA (02:45)
[2017-01-26] MEDS ORDERED: ALPRAZolam 0.5 MG TAB PO PRN (02:49)
[2017-01-26] MEDS ORDERED: SENNOSIDES 8.6 MG TAB PO PRN (02:49)
[2017-01-26] MEDS ORDERED: NAPROXEN 250 MG TAB PO PRN (02:49)
[2017-01-26] MEDS ORDERED: SUMAtriptan SUCCINATE 50 MG TAB PO PRN (02:49)
[2017-01-26] MEDS ORDERED: AZTREONAM 2 GM in SODIUM CHLORIDE 0.9% 100 ML IVPB STA (02:59)
[2017-01-26] MEDS ORDERED: traMADol 50 MG TAB PO PRN (05:11)
[2017-01-26] MEDS ORDERED: IPRATROPIUM-ALBUTEROL 3 ML NEB INHALATION PRN (05:11)
[2017-01-26] MEDS ORDERED: DOCUSATE 100 MG CAP PO PRN (05:11)
[2017-01-26] MEDS ORDERED: IBUPROFEN 600 MG TAB PO PRN (05:11)
[2017-01-26] MEDS: IPRATROPIUM-ALBUTEROL 3 ML NEB INHALATION SCH ×3 (07:24→15:27)
[2017-01-26] MEDS: HYDROcodone/APAP 10-325MG 1 EACH TAB PO PRN ×2 (07:50→14:11)
[2017-01-26 08:00] LABS: Basophils % (A) 0 %; CH 31.4; CHCM 31.5; Eosinophils # (A) 0.8 k/uL (0-0.7); Eosinophils % (A) 8 %; HCT 37.5 % (34.0-46.0); HGB 11.5 gm/dL (11.4-16.0); Luc # (Auto) 0.08; Luc % (Auto) 1; Lymphocytes # (A) 1.1 k/uL (1.0-4.8); Lymphocytes % (A) 11 %; MCH 30.8 pg (25.0-35.0); MCHC 30.8 g/dL (31.0-37.0); MCV 100.3 fL (80.0-100.0); Mean Platelet Volume 6.1; Monocytes # (A) 0.3 k/uL (0-1.0); Monocytes % (A) 3 %; Neutrophils # (A) 8.2 k/uL (1.3-7.7); Neutrophils % (A) 78 %; RBC 3.74 m/uL (3.80-5.40); RDW 13.4 % (11.5-15.5); WBC 10.5 k/uL (3.8-10.6); WBC (Perox) 10.89
[2017-01-26] MEDS ORDERED: HEPARIN SODIUM,PORCINE 5,000 UNIT/ML 1 ML VIAL SQ SCH (08:00)
[2017-01-26 08:28] LABS: Anion Gap 8 mmol/L; Blood Urea Nitrogen 7 mg/dL (7-17); Calcium 9.1 mg/dL (8.4-10.2); Carbon Dioxide 26 mmol/L (22-30); Chloride 103 mmol/L (98-107); Glucose 92 mg/dL (74-99); Non-African American GFR(MDRD) >60 (>60 ml/min/1.73 sqM); Potassium 4.5 mmol/L (3.5-5.1); Sodium 137 mmol/L (137-145)
[2017-01-26] MEDS ORDERED: LORATADINE 10 MG TAB PO SCH ×2 (09:00→21:00)
[2017-01-26] MEDS ORDERED: buPROPion 75 MG TAB PO SCH (09:00)
[2017-01-26 11:00] VITALS: BMI 23.6
[2017-01-26] MEDS ORDERED: AZTREONAM 2 GM in SODIUM CHLORIDE 0.9% 100 ML IVPB SCH (12:00)
[2017-01-26 15:00] VITALS: BP 115/55; PULSE 79; RESP 18; TEMP 98.3
--- NOTE | 2017-01-26 15:39 | P.CNPUL ---
History of Present Illness Consult date: 01/26/17 Requesting physician: Sincere Arciniega Reason for consult: dyspnea, abnormal CXR/CT Chief complaint: Increased shortness of breath History of present illness: This is a 41-year-old female patient who presented to the emergency department at around midnight on 01/26/2017 with complaints of increased shortness of breath, dry cough after she was discharged 3 hours prior from [facility] where she had undergone right upper lobe lobectomy for the diagnosis of non-small cell carcinoma. On presentation she had a low-grade fever of 99.1, and slightly tachycardic. Chest x-ray from 01/26/2017 showed a rounded infiltrate in the posterior segment of the right upper lobe. Patient denies any fevers, chills, or significant sputum production. She denies any wheezing, or chest congestion. She states her oxygen saturation was low at home , and her son insisted she go to the emergency department for evaluation. The diagnosis of the non-small cell lung cancer of the right upper lobe was established recently in October 2016. She was seen in consultation by Dr. Shields on 11/16/2016. CT-guided biopsy by interventional radiologist at [facility] was positive for adenocarcinoma. PET scan on 11/18/2016 revealed posterior right upper lobe mass with marked SUV elevation compatible with a primary neoplasm with no evidence suspicious for metastatic disease. Patient was evaluated by Dr. Connelly for right upper lobe lobectomy, however she wanted a second opinion for minimally invasive option such as robotic lobectomy and subsequently had a consultation with Dr. Jordan, who agreed to do it. In view of a scheduling issue, the patient opted to have the right upper lobectomy at the [facility]. She states the robotic lobectomy had to be converted to an open lobectomy in view of encounter difficulties during the procedure. She has not seen the oncologist in regards of further treatments. Past medical history is positive for asthma, generalized anxiety, depression, ALLERGIC rhinitis, extensive smoking history of 25 years. On examination patient is seen resting in bed, with her teenage son at the bedside. Does not appear to be in any acute distress, lung sounds are clear, diminished at the bases. No cough, no significant chest congestion appreciated. No wheezes, no rhonchi. Right posterior chest incision is clean dry and intact, well approximated. Covered with a dressing. Patient states he did have some drainage at the distal end which is not currently present. No fevers, she did have an elevated white count on admission at 18.2, which came down to 10.5. She was started on Azactam and Levaquin, as well as breathing treatments. We will initiate Symbicort 160/4.5 twice a day. Patient needs to be seen by oncology. Chest x- ray from 01/26/[address] Shields, the infiltrate in the posterior segment of the right upper lobe could be postsurgical change after the right upper lobectomy, however pneumonia could not be entirely excluded. Review of Systems All systems: negative Constitutional: Denies chills, Denies fever Eyes: denies blurred vision, denies pain Ears, nose, mouth and throat: Denies headache, Denies sore throat Cardiovascular: Denies chest pain, Denies shortness of breath Respiratory: Denies cough Gastrointestinal: Denies abdominal pain, Denies diarrhea, Denies nausea, Denies vomiting Genitourinary: Denies dysuria, Denies hematuria Musculoskeletal: Denies myalgias Integumentary: Denies pruritus, Denies rash Neurological: Denies numbness, Denies weakness Psychiatric: Denies anxiety, Denies depression Endocrine: Denies fatigue, Denies weight change Past Medical History Past Medical History: Asthma, Cancer, Rheumatoid Arthritis (RA) Additional Past Medical History / Comment(s): emphysema,chronic back and neck pain, Lung Cancer History of Any Multi-Drug Resistant Organisms: None Reported Past Surgical History: Back Surgery, Breast Surgery Additional Past Surgical History / Comment(s): fibrotic tumor -breast removed, right upper lobectomy Past Anesthesia/Blood Transfusion Reactions: No Reported Reaction Additional Past Anesthesia/Blood Transfusion Reaction / Comment(s): calusterphobia Past Psychological History: No Psychological Hx Reported Smoking Status: Former smoker Past Alcohol Use History: None Reported, Occasional Additional Past Alcohol Use History / Comment(s): started smoking as a teen, smoked 1/2 ppd. quit in Dec 2016 Past Drug Use History: None Reported - Past Family History Mother Family Medical History: Blood Disorder Additional Family Medical History / Comment(s): factor V leiden Father Additional Family Medical History / Comment(s): from complications of mrsa infection Medications and Allergies Home Medications Medication Instructions Recorded Confirmed Type ALPRAZolam [Xanax] 1 mg PO Q8H PRN 11/02/16 01/25/17 History Albuterol Inhaler [Ventolin Hfa 1 - 2 puff INHALATION RT-Q6H PRN 11/02/16 History Inhaler] HYDROcodone/APAP 10-325MG [Kiefer 1 tab PO Q6H PRN 11/02/16 01/25/17 History 10-325] QUEtiapine FUMARATE [SEROquel XR] 150 mg PO HS 11/02/16 01/25/17 History traMADol HCL [Ultram] 50 mg PO Q6H PRN 11/02/16 01/25/17 History Albuterol Inhaler [Ventolin Hfa 2 puff INHALATION RT-Q6H PRN 01/25/17 01/25/17 History Inhaler] Cetirizine HCl [Zyrtec] 10 mg PO HS 01/25/17 01/25/17 History Docusate Sodium [Dok] 100 mg PO HS PRN 01/25/17 01/25/17 History Ibuprofen [Motrin] 600 mg PO Q6H PRN 01/25/17 01/25/17 History Loratadine [Claritin] 10 mg PO DAILY 01/25/17 01/25/17 History Naproxen 500 mg PO Q12H PRN 01/25/17 01/25/17 History SUMAtriptan SUCCINATE [Imitrex] 50 mg PO Q2H PRN 01/25/17 01/25/17 History Sennosides [Senokot] 8.6 mg PO DAILY PRN 01/25/17 01/25/17 History buPROPion [Wellbutrin] 75 mg PO DAILY 01/25/17 01/25/17 History Allergies Allergy/AdvReac Type Severity Reaction Status Date / Time Penicillins Allergy Rash/Hives Verified 01/25/17 23:49 Physical Exam Vitals: Vital Signs Temp Pulse Pulse Resp BP BP Pulse Ox 01/26/17 12:05 80 01/26/17 11:52 80 01/26/17 07:00 98.2 F 93 16 88/53 94 L 01/26/17 03:50 97.8 F 96 18 99/53 99 01/26/17 03:00 92 18 100/55 97 01/26/17 02:00 97.8 F 98 18 105/58 98 01/25/17 23:49 20 01/25/17 23:35 99.1 F 106 H 18 115/64 97 Intake and Output 01/25/17 01/26/17 01/26/17 22:59 06:59 14:59 Intake Total 250 1280 Balance 250 1280 Intake: Intake, IV Titration 250 100 Amount Aztreonam 2 gm In Sodium 100 100 Chloride 0.9% 100 ml @ 100 mls/hr IVPB Q8H [facility] Rx#:[id number] Levofloxacin 750Mg-D5w 150 Pmx 750 mg In Dextrose/ Water 1 150ml.bag @ 100 mls/hr IVPB Q24H [facility] Rx#: [id number] Oral 1180 Other: Voiding Method Toilet # Voids 1 5 Weight 64.41 kg 64.41 kg Patient Weight 01/27/17 06:59 Weight 64.41 kg GENERAL EXAM: Alert, active, comfortable in no apparent distress. HEAD: Normocephalic. EYES: Normal reaction of pupils, equal size. NOSE: Clear with pink turbinates. THROAT: No erythema or exudates. NECK: No masses, no JVD. CHEST: No chest wall deformity. Postsurgical scar on the right posterior chest , cleaned are intact well approximated. LUNGS: Equal air entry with no crackles, wheeze, rhonchi or dullness. Diminished at the bases CVS: S1 and S2 normal with no audible mumurs, regular rhythm. ABDOMEN: No hepatosplenomegaly, normal bowel sounds, no guarding or rigidity. SPINE: No scoliosis or deformity SKIN: No rashes CENTRAL NERVOUS SYSTEM: No focal deficits, tone is normal in all 4 extremities. Results - Laboratory Findings CBC and BMP: 01/26/17 07:42 01/26/17 07:42 PT/INR, D-dimer PT 9.8 sec (9.0-12.0) 01/26/17 00:38 INR 1.0 (<1.2) 01/26/17 00:38 Abnormal lab findings: Abnormal Labs 01/26/17 01/26/17 01/26/17 00:38 00:38 07:42 WBC 18.2 H RBC 3.74 L MCV 100.3 H MCHC 30.5 L 30.8 L Plt Count 788 H D 704 H Neutrophils # 15.4 H 8.2 H Eosinophils # 1.0 H 0.8 H AST 59 H ALT 73 H Alkaline Phosphatase 209 H - Diagnostic Findings Chest x-ray: report reviewed Assessment and Plan Plan: Assessment: #1. Recent diagnosis of non-small lung cancer of the right upper lobe, status post robotic right upper lobectomy converted to thoracotomy, this was done at [facility] last week, exact date is unknown. PET scan from 11/19/2016 has no evidence for suspicion for metastatic disease. MRI of brain from 11/18/2016 revealed no suspicious changes of metastatic disease #2. Possible right upper lobe pneumonia versus postoperative changes related to right upper lobe as evidenced on the chest x-ray from 01/26/2017. Patient had no chest congestion, fever or chills. No significant sputum production. Did have leukocytosis with WBC at 18.2 on presentation, which could be reactive , but cannot rule out infectious etiology. She was started on Azactam and Levaquin for empiric abiotic coverage. #3. History of asthma, FEV1 of 82% of the predicted value from the PFT on 11/16. #4. Chronic nicotine dependence, in remission. Quit recently after was diagnosed with adenocarcinoma of the right upper lobe #5. Generalized anxiety disorder #6. Depression #7. ALLERGIC rhinitis Plan: Agree with Azactam and Levaquin for the possibility of pneumonia, although the changes seen in the right upper lobe on the chest x-ray from 01/26/2017 could be consistent with postsurgical changes from right upper lobe lobectomy. Continue duo nebs, will add Symbicort inhaler. Patient has not been seen by oncology yet. Obtain blood cultures and sputum culture. We'll continue to monitor and make recommendations based on patient's progress. I performed a history & physical examination of the patient and discussed their management with my nurse practitioner, Bernarda Corral. I reviewed the nurse practitioner's note and agree with the documented findings and plan of care. Lung sounds are clear diminished at the bases, no significant sputum production. Continue with empiric antibiotics, obtain sputum and blood culture. Add Symbicort. I have discussed the documentation by the nurse practitioner. Time with Patient: Greater than 30
[2017-01-26] MEDS ORDERED: IPRATROPIUM-ALBUTEROL 3 ML NEB INHALATION SCH (17:17)
--- NOTE | 2017-01-26 18:10 | HP ---
HISTORY AND PHYSICAL DATE OF ADMISSION: January 26, 2017. PRESENTING COMPLAINT: Short of breath, coughing up blood. HISTORY OF PRESENTING COMPLAINT: This is a 41-year-old patient of Dr. Rubén Caputo who was just discharged from [facility] yesterday. The patient had gone there with fevers and she was told that she has a diagnosis of pneumothorax, though she was discharged on Bactrim. The patient got home and was home for about three hours, became short of breath, nearly passed out and started to cough up blood, and hence she was admitted. Patient stopped smoking about 2 months ago. She had a lung tumor that was described as localized cancer removed. I do not have the surgical notes on that. The patient has a diagnosis otherwise emphysema and rheumatoid arthritis. REVIEW OF SYSTEMS: Constitutional tired. HEENT: None. RESPIRATORY: As above. Cardiovascular none. Gastrointestinal none. GENITOURINARY: None. MUSCULOSKELETAL: Arthritic pain especially in the hands. Dermatological, hematologic, lymphatic none. Psychiatry: Some anxiety. Neurological none. PAST MEDICAL HISTORY: Emphysema, rheumatoid arthritis, chronic back and neck pain, lung cancer removed by surgery. PAST SURGICAL HISTORY: Back surgery, breast surgery, fibrotic tumor of the breast removed, right upper lobectomy of the lung. SOCIAL HISTORY: The patient lives in at home, not employed. Patient smokes half a pack a day. Quit smoking about 6-8 weeks ago. Alcohol occasional. FAMILY HISTORY: Of factor V Leiden mutation. HOME MEDICATIONS: Ultram 50 mg p.o. q.6h p.r.n., Wellbutrin 75 mg p.o. daily, Senokot 8.6 mg p.o. daily p.r.n., Imitrex 90 mg q.2h p.r.n., Seroquel 150 mg p.o. q.h.s., naproxen 500 mg p.o. q.12 p.r.n., Claritin 10 mg p.o. daily, Motrin 600 mg p.o. q.6h p.r.n., [place] 10 1 tab q.6h p.r.n., Colace 100 mg p.o. q.h.s., Zyrtec 10 mg p.o. q.h.s., Ventolin HFA 2 puffs q.6h p.r.n. and Xanax 1 mg q.i.d. p.r.n. ALLERGIES: PENICILLIN. PHYSICAL EXAMINATION: Vital signs on presentation temperature 99.1, pulse 106, respiration 18, blood pressure 105/64, pulse 97% on 2 L. GENERAL APPEARANCE: Slim built, sitting up, anxious-appearing, multicolored hair. EYES: Pupils equal. Conjunctivae normal. HEENT: Oral cavity normal. Neck JVD not raised. Mass not palpable. Respiratory effort normal. LUNGS: Diminished breath sounds. Cardiovascular first and second sounds normal. No edema. ABDOMEN: Soft, nontender. Liver and spleen not palpable. Lymphatic no lymph nodes palpable in the neck and axilla. PSYCHIATRY: Alert and oriented times three. Mood and affect slightly anxious- appearing. Neurological: Pupils equal. Cranial nerves grossly intact. Power and sensation grossly intact. INVESTIGATIONS: White count 18.2, hemoglobin 12.1, platelets 78, potassium 4.2. BUN creatinine is normal. AST 59, ALT 73. Chest x-ray shows the trachea pulled to the right. Some infiltrate on the right side. ASSESSMENT: 1. This is a patient who presents with hemoptysis who about 4-5 days ago recent had a right upper lobe lobectomy for apparently lung cancer what from patient describes. I do see an office note from Dr. Mark Jordan that they say that the patient was diagnosed with non-small cell lung carcinoma of the right upper lobe and had a PET scan and therefore underwent a lobectomy. 2. Emphysema in an ex-smoker. 3. Rheumatoid arthritis in the hands. 4. Hemoptysis could be from an AV malformation. Other causes to be ruled out. 5. Recent pneumothorax on admission to the [facility]. PLAN: Dr. Shields from Pulmonary was consulted. Will resume the patient's psychiatry medications. Put the patient on breathing treatment and follow with Dr. Shields. Copy Dr. Rubén Caputo. MMODL / IJN: [id number] /
[2017-01-26] MEDS ORDERED: SYMBICORT 160-4.5 MCG INHALER INHALATION SCH (20:00)
[2017-01-27] MEDS ORDERED: LEVOFLOXACIN 750MG-D5W PMX 750 MG in DEXTROSE/WATER 1 150ML.BAG IVPB SCH (06:00)
--- NOTE | 2017-01-27 08:11 | CONS ---
CONSULTATION DATE OF SERVICE: 01/26/2017. REASON FOR CONSULTATION: Pneumonia. HISTORY OF PRESENT ILLNESS: The patient is a 41-year-old female who presented to the [facility] ER early this morning with chief complaints of increasing shortness of breath and dry cough. The patient apparently was recently admitted to [facility] with the patient's had undergone right upper lobe lobectomy for non-small cell carcinoma. The patient on arrival to the ER did have a low-grade fever of 99.1. She did have elevated white count of 18.2. The patient did have a chest x-ray obtained which did show right upper lobe infiltrate with pleural thickening and pleural fluid level possibility of lung abscess should be considered. Chest appears worse than the last exam. The patient has been in the hospital. ID was consulted for further recommendation regarding antibiotic therapy. Patient is currently being treated with a combination of Azactam and Levaquin because of her PENICILLIN allergy, which she has a rash as a child and no history of anaphylaxis. The patient's cough is mostly dry in nature. Not bringing up any sputum. No chest pain. No nausea, no vomiting. No abdominal pain and no diarrhea. REVIEW OF SYSTEMS: Constitutional positive for weakness and some chills. Eyes no complaint. ENT no complaint. Respiratory as per HPI. Cardiovascular no complaint. Genitourinary : No complaint. Gastrointestinal: No complaint. Musculoskeletal: No complaint. Integumentary: No complaint. PSYCHOLOGICAL: No complaint. Endocrine no complaint. Neurologic no complaint. PAST MEDICAL HISTORY: Significant for rheumatoid arthritis, recent diagnosis of non-small cell lung cancer, COPD, asthma, and chronic back and neck pain. PAST SURGICAL HISTORY: Fibroid tumor removed from the breast, advanced right upper lobe lobectomy and back surgery. SOCIAL HISTORY: The patient recently quit smoking back in December of 2016. Has been smoking since she was a teen. No drinking or drug use. FAMILY HISTORY: Mother with a history of Factor 5 Leiden deficiency. Father from complication of MRSA infection. ALLERGIES: PENICILLIN. MEDICATIONS: Include the patient is currently on ibuprofen, levofloxacin, Claritin, Seroquel, Senokot, Imitrex, Ultram, Colace, Wellbutrin, Azactam, Xanax, DuoNeb and [place]. EXAMINATION: Blood pressure is 115/55 with a pulse of 79, temperature 98.3, T-max was 99.1 she is 95% on 2 L nasal cannula. General description is a middle aged female lying in bed in no distress. No tachypnea or accessory muscle of respiration use. HEENT: Shows pallor, no scleral icterus. Oral mucosa is dry. Neck trachea central. No thyromegaly. Lungs unlabored breathing with decreased breath sounds. No wheeze. Heart S1, S2. Regular rate and rhythm. Abdomen soft no tenderness. EXTREMITIES: No edema of feet. Skin examination no rash or mass palpable. Neurological patient is awake, alert, oriented x3. Mood and affect normal. LABS: Hemoglobin is 11.5, white count normal at 10.5, admission white count was 18.2 with a BUN of 7, creatinine 0.67, liver enzymes were slightly elevated. Blood culture obtained, currently pending. xray as mentioned above. DIAGNOSTIC IMPRESSION/PLAN: Patient admitted to the hospital with increasing shortness of breath. Did have a cough which is dry in nature. The patient did have a low-grade fever. Did have elevated white count with a chest x-ray now showing abnormality with the possibility of right upper lobe infiltrate with pleural thickening with a question of possibly post surgical changes as the patient recently had a right upper lobectomy for postop infection not entirely excluded in view of the significant elevated white count on presentation to the hospital. PLAN: 1. We will try to obtain sputum for gram stain culture and sensitivity. 2. Recommend obtaining a CT of the chest without any contrast to better define the abnormality seen on the x-ray. 3. We will keep the patient on Azactam and Levaquin while workup is completed. 4. We will follow up on the clinical condition and culture to further adjust medication if needed. Thank you for this consultation. Will follow this patient along with you. MMODL / IJN: [id number] / GOOD
--- NOTE | 2017-01-27 20:23 | DS ---
DISCHARGE SUMMARY DATE OF ADMISSION: January 26, 2017. DATE LEFT AGAINST MEDICAL ADVICE: 01/26/2017. FINAL DIAGNOSES: 1. Emphysema. 2. Rheumatoid arthritis. 3. Hemoptysis. 4. Recent pneumothorax. HOSPITAL COURSE: This patient seen by Dr. Shields and Dr. Yates from Infectious Disease, who was just discharged from another facility. The patient presents with some hemothorax and shortness of breath. The patient decided to leave against medical advice. The patient done so before. Copy to Dr. Rubén Caputo. MMSALLYL / OLGAN: [id number] /
== END 2017-01-26 15:15 | disposition left against medical advice (07) ==
LOC: EC 23:34 → 5MS5E 01-26 02:45 → INTOOBSV 01-26 02:45
PROVIDERS: ADMIT Hospitalist; ATTEND Hospitalist
DX: J94.2 Hemothorax (principal); J43.9 Emphysema, unspecified; C34.11 Malignant neoplasm of upper lobe, right bronchus or lung; M06.9 Rheumatoid arthritis, unspecified; G89.29 Other chronic pain; M54.2 Cervicalgia; F32.9 Major depressive disorder, single episode, unspecified; F41.1 Generalized anxiety disorder; F17.211 Nicotine dependence, cigarettes, in remission; Z90.2 Acquired absence of lung [part of]; Z79.899 Other long term (current) drug therapy; Z88.0 Allergy status to penicillin; Z83.2 Family history of diseases of the blood and blood-forming organs and certain disorders involving the immune mechanism
CPT/HCPCS: 96366; 96367; 96372; 96365; 99285; 36415; 94640; 93005; 80053; 80048; 83735; 84484; 85025; 85610; 85730; 87040; 87070; 87205; 87075; 87077; 87186; 71020; G0378; J1644; J1956

== ENCOUNTER 2017-04-03 13:08 | Emergency (ER) | payer OTHER ==
[2017-04-03 14:10] LABS: Basophils % (A) 0 %; Eosinophils # (A) 0.2 k/uL (0-0.7); Eosinophils % (A) 4 %; HCT 43.9 % (34.0-46.0); HGB 14.3 gm/dL (11.4-16.0); Lymphocytes # (A) 1.5 k/uL (1.0-4.8); Lymphocytes % (A) 28 %; MCH 31.3 pg (25.0-35.0); MCHC 32.6 g/dL (31.0-37.0); MCV 95.8 fL (80.0-100.0); Mean Platelet Volume 6.5; Monocytes # (A) 0.1 k/uL (0-1.0); Monocytes % (A) 1 %; Neutrophils # (A) 3.5 k/uL (1.3-7.7); Neutrophils % (A) 66 %; Platelet Count 303 k/uL (150-450); RBC 4.58 m/uL (3.80-5.40); RDW 13.6 % (11.5-15.5); WBC 5.4 k/uL (3.8-10.6)
--- NOTE | 2017-04-03 14:13 | XR ---
EXAMINATION TYPE: XR chest 2V DATE OF EXAM: 04/03/2017 COMPARISON: 01/26/2017 HISTORY: Partial right pneumonectomy. TECHNIQUE: Frontal and lateral views of the chest are obtained. FINDINGS: Right hemithorax volume loss and surgical right suprahilar and right midlung sutures are n oted from partial right pneumonectomy. There is slight rightward mediastinal shift secondary to the r ight hemithorax volume loss. Otherwise the lungs remain clear with no focal consolidation, pleural ef fusion or pneumothorax. Cardiomediastinal silhouette is within normal limits. Osseous structures are intact. IMPRESSION: No acute cardiopulmonary process. Postsurgical changes of a partial right pneumonectomy.
[2017-04-03 14:15] LABS: ALT 87 U/L (9-52); AST 28 U/L (14-36); Alkaline Phosphatase 86 U/L (38-126); Anion Gap 9 mmol/L; Blood Urea Nitrogen 14 mg/dL (7-17); Calcium 9.3 mg/dL (8.4-10.2); Carbon Dioxide 30 mmol/L (22-30); Chloride 102 mmol/L (98-107); Glucose 87 mg/dL (74-99); Potassium 3.8 mmol/L (3.5-5.1); Sodium 141 mmol/L (137-145); Total Bilirubin 0.2 mg/dL (0.2-1.3); Total Protein 6.9 g/dL (6.3-8.2)
--- NOTE | 2017-04-03 14:35 | ED ---
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 Patient started chemotherapy on March 29, she states that since that time she has been feeling ill. She states that she has persistent nausea despite taking her antiemetics. She states that she feels very fatigued. She reports that she's been drinking plenty of water and feels like she has only urinated a couple of times in the past few days. She states that she drank approximately 20 bottles of water and urinated only one time. Today she had follow-up appointment at her oncologist office who advised her to come to the emergency department for labs and imaging to evaluate for electrolyte abnormalities, any pathology, development of pleural effusions or pneumothorax. Patient reports that she is otherwise within her usual state of health. She has chronic shortness of breath that is unchanged recently. She denies any fevers, chills, abdominal pain. She denies any swelling of the arms or legs or development of rash. She's been able to eat and drink though she has persistent nausea. She denies any known sick contacts. - Related Data Home Medications Medication Instructions Recorded Confirmed ALPRAZolam [Xanax] 1 mg PO Q8H PRN 11/02/16 04/03/17 HYDROcodone/APAP 10-325MG [[place] 1 tab PO Q6H PRN 11/02/16 04/03/17 10-325] QUEtiapine FUMARATE [SEROquel XR] 150 mg PO HS 11/02/16 04/03/17 traMADol HCL [Ultram] 50 mg PO Q6H PRN 11/02/16 04/03/17 Albuterol Inhaler [Ventolin Hfa 2 puff INHALATION RT-Q6H PRN 01/25/17 04/03/17 Inhaler] Cetirizine HCl [Zyrtec] 10 mg PO HS 01/25/17 04/03/17 Docusate Sodium [Dok] 100 mg PO HS PRN 01/25/17 04/03/17 Loratadine [Claritin] 10 mg PO DAILY 01/25/17 04/03/17 Naproxen 500 mg PO Q12H PRN 01/25/17 04/03/17 SUMAtriptan SUCCINATE [Imitrex] 50 mg PO Q2H PRN 01/25/17 04/03/17 buPROPion [Wellbutrin] 75 mg PO DAILY 01/25/17 04/03/17 Albuterol Nebulized [Ventolin 2.5 mg INHALATION RT-Q6H PRN 04/03/17 04/03/17 Nebulized] Cyclobenzaprine [Flexeril] 10 mg PO TID PRN 04/03/17 04/03/17 Folic Acid 1 mg PO DAILY 04/03/17 04/03/17 Ondansetron [Zofran ODT] 8 mg PO Q8H PRN 04/03/17 04/03/17 Prochlorperazine [Compazine] 10 mg PO Q8H PRN 04/03/17 04/03/17 Allergies Allergy/AdvReac Type Severity Reaction Status Date / Time Penicillins Allergy Rash/Hives Verified 04/03/17 13:19 Review of Systems ROS Statement: Those systems with pertinent positive or pertinent negative responses have been documented in the HPI. ROS Other: All systems not noted in ROS Statement are negative. Constitutional: Reports: weakness Eyes: Denies: vision change ENT: Denies: ear pain, throat pain Respiratory: Reports: dyspnea, wheezes Cardiovascular: Denies: chest pain, palpitations Endocrine: Reports: fatigue Gastrointestinal: Reports: nausea, vomiting Genitourinary: Reports: other (Urine decreased) Skin: Denies: rash, lesions Neurological: Denies: headache Hematological/Lymphatic: Denies: easy bleeding, easy bruising Past Medical History Past Medical History: Asthma, Cancer, Rheumatoid Arthritis (RA) Additional Past Medical History / Comment(s): emphysema,chronic back and neck pain, Lung Cancer History of Any Multi-Drug Resistant Organisms: None Reported Past Surgical History: Back Surgery, Breast Surgery Additional Past Surgical History / Comment(s): fibrotic tumor -breast removed, right upper lobectomy Past Anesthesia/Blood Transfusion Reactions: No Reported Reaction Additional Past Anesthesia/Blood Transfusion Reaction / Comment(s): calusterphobia Past Psychological History: No Psychological Hx Reported Smoking Status: Former smoker Past Alcohol Use History: None Reported, Occasional Past Drug Use History: None Reported - Past Family History Mother Family Medical History: Blood Disorder Additional Family Medical History / Comment(s): factor V leiden Father Additional Family Medical History / Comment(s): from complications of mrsa infection General Exam Limitations: no limitations General appearance: alert, in no apparent distress Head exam: Present: atraumatic, normocephalic Eye exam: Present: normal appearance, PERRL ENT exam: Present: normal exam, normal oropharynx, mucous membranes moist Neck exam: Present: normal inspection Respiratory exam: Present: wheezes Cardiovascular Exam: Present: regular rate, normal rhythm GI/Abdominal exam: Present: soft. Absent: distended, tenderness, guarding, rebound Rectal exam: Present: deferred Extremities exam: Present: normal inspection. Absent: pedal edema Back exam: Present: normal inspection. Absent: CVA tenderness (R), CVA tenderness (L), muscle spasm, paraspinal tenderness, vertebral tenderness Neurological exam: Present: alert, oriented X3 Psychiatric exam: Present: normal affect, normal mood Skin exam: Present: warm, dry Course Vital Signs 04/03/17 04/03/17 04/03/17 13:16 15:00 15:52 Temperature 98.4 F 98.6 F Pulse Rate 89 74 71 Respiratory 16 16 18 Rate Blood Pressure 118/76 99/57 105/58 O2 Sat by Pulse 100 98 98 Oximetry Medical Decision Making - Medical Decision Making Patient was seen and evaluated, history was obtained from the patient and review of medical records Patient states that she has lung cancer, she is uncertain what kind, she is undergoing chemotherapy, she is uncertain of which drugs. She states that she was advised to come to the emergency department by her oncology office for evaluation of persistent ill feeling and reported oliguria. Patient states that she can drink 20 bottles of water and doesn't have to urinate. Upon initial evaluation patient is sitting in the hospital bed, she is eating chips and drinking Sprite. She is in no acute distress. Physical exam the patient doesn't appear fluid overloaded, she is nonedematous, she is in no respiratory distress. Labs, chest x-ray were ordered Chest x-ray with postsurgical changes, no pleural effusions, no pneumothorax Labs with mild elevation of a LT, kidney function is normal. Electrolytes are normal. Urinalysis was ordered and patient was advised that we need a urine sample. Patient was able to provide a urine sample without difficulty, urinalysis was evaluated. No signs of infection. At this time patient's workup in the emergency department is unremarkable. The patient is hemodynamically stable and able to eat and drink. Patient is stable for discharge home with the plan for follow-up with primary care physician or oncologist as scheduled. All questions pertaining to care were answered to the best of my ability and patient was discharged home. - Lab Data Result diagrams: 04/03/17 13:45 04/03/17 13:45 Lab Results 04/03/17 04/03/17 04/03/17 Range/Units 13:45 13:45 13:45 WBC 5.4 (3.8-10.6) k/uL RBC 4.58 (3.80-5.40) m/uL Hgb 14.3 (11.4-16.0) gm/dL Hct 43.9 (34.0-46.0) % MCV 95.8 (80.0-100.0) fL MCH 31.3 (25.0-35.0) pg MCHC 32.6 (31.0-37.0) g/dL RDW 13.6 (11.5-15.5) % Plt Count 303 (150-450) k/uL Neutrophils % 66 % Lymphocytes % 28 % Monocytes % 1 % Eosinophils % 4 % Basophils % 0 % Neutrophils # 3.5 (1.3-7.7) k/uL Lymphocytes # 1.5 (1.0-4.8) k/uL Monocytes # 0.1 (0-1.0) k/uL Eosinophils # 0.2 (0-0.7) k/uL Basophils # 0.0 (0-0.2) k/uL Sodium 141 (137-145) mmol/L Potassium 3.8 (3.5-5.1) mmol/L Chloride 102 (98-107) mmol/L Carbon Dioxide 30 (22-30) mmol/L Anion Gap 9 mmol/L BUN 14 (7-17) mg/dL Creatinine 0.70 (0.52-1.04) mg/dL Est GFR (MDRD) Af Amer >60 (>60 ml/min/1.73 sqM) Est GFR (MDRD) Non-Af >60 (>60 ml/min/1.73 sqM) Glucose 87 (74-99) mg/dL Calcium 9.3 (8.4-10.2) mg/dL Total Bilirubin 0.2 (0.2-1.3) mg/dL AST 28 (14-36) U/L ALT 87 H (9-52) U/L Alkaline Phosphatase 86 (38-126) U/L NT-Pro-B Natriuret Pep 25 pg/mL Total Protein 6.9 (6.3-8.2) g/dL Albumin 4.0 (3.5-5.0) g/dL Urine Color Urine Appearance (Clear) Urine pH (5.0-8.0) Ur Specific [place] (1.001-1.035) Urine Protein (Negative) Urine Glucose (UA) (Negative) Urine Ketones (Negative) Urine Blood (Negative) Urine Nitrite (Negative) Urine Bilirubin (Negative) Urine Urobilinogen (<2.0) mg/dL Ur Leukocyte Esterase (Negative) Urine RBC (0-5) /hpf Urine WBC (0-5) /hpf Ur Squamous Epith Cells (0-4) /hpf Urine Bacteria (None) /hpf Urine Mucus (None) /hpf 04/03/17 Range/Units 14:57 WBC (3.8-10.6) k/uL RBC (3.80-5.40) m/uL Hgb (11.4-16.0) gm/dL Hct (34.0-46.0) % MCV (80.0-100.0) fL MCH (25.0-35.0) pg MCHC (31.0-37.0) g/dL RDW (11.5-15.5) % Plt Count (150-450) k/uL Neutrophils % % Lymphocytes % % Monocytes % % Eosinophils % % Basophils % % Neutrophils # (1.3-7.7) k/uL Lymphocytes # (1.0-4.8) k/uL Monocytes # (0-1.0) k/uL Eosinophils # (0-0.7) k/uL Basophils # (0-0.2) k/uL Sodium (137-145) mmol/L Potassium (3.5-5.1) mmol/L Chloride (98-107) mmol/L Carbon Dioxide (22-30) mmol/L Anion Gap mmol/L BUN (7-17) mg/dL Creatinine (0.52-1.04) mg/dL Est GFR (MDRD) Af Amer (>60 ml/min/1.73 sqM) Est GFR (MDRD) Non-Af (>60 ml/min/1.73 sqM) Glucose (74-99) mg/dL Calcium (8.4-10.2) mg/dL Total Bilirubin (0.2-1.3) mg/dL AST (14-36) U/L ALT (9-52) U/L Alkaline Phosphatase (38-126) U/L NT-Pro-B Natriuret Pep pg/mL Total Protein (6.3-8.2) g/dL Albumin (3.5-5.0) g/dL Urine Color Yellow Urine Appearance Cloudy H (Clear) Urine pH 6.0 (5.0-8.0) Ur Specific [place] 1.026 (1.001-1.035) Urine Protein 1+ H (Negative) Urine Glucose (UA) 1+ H (Negative) Urine Ketones Negative (Negative) Urine Blood Trace H (Negative) Urine Nitrite Negative (Negative) Urine Bilirubin Negative (Negative) Urine Urobilinogen 2.0 (<2.0) mg/dL Ur Leukocyte Esterase Small H (Negative) Urine RBC 8 H (0-5) /hpf Urine WBC 8 H (0-5) /hpf Ur Squamous Epith Cells 9 H (0-4) /hpf Urine Bacteria Rare H (None) /hpf Urine Mucus Few H (None) /hpf Disposition Clinical Impression: Chemotherapy-induced nausea Disposition: HOME SELF-CARE Condition: Fair Instructions: Chemo Induced Nausea and Vomiting (ED) Referrals: Bryan Caputo MD [Primary Care Provider] - 1-2 days Time of Disposition: 15:44
[2017-04-03 15:14] LABS: Appearance,Urine Cloudy (Clear); Bacteria,Urine Rare /hpf; Bilirubin,Urine Negative (Negative); Blood,Urine Trace (Negative); Color,Urine Yellow; Glucose,Urine (UA) 1+ (Negative); Ketones,Urine Negative (Negative); Leukocyte Esterase,Urine Small (Negative); Mucus,Urine Few /hpf; Nitrite,Urine Negative (Negative); Protein,Urine 1+ (Negative); RBC,Urine 8 /hpf (0-5); Specific Gravity,Urine 1.026 (1.001-1.035); Squamous Epithelial Cell,Urine 9 /hpf (0-4); WBC,Urine 8 /hpf (0-5)
[2017-04-04 23:05] VITALS: BP 105/58; PULSE 71; RESP 18; TEMP 98.6
== END 2017-04-03 15:58 | disposition home or self-care (01) ==
LOC: EC 13:08
DX: R11.0 Nausea (principal); T50.905A Adverse effect of unspecified drugs, medicaments and biological substances, initial encounter; R53.83 Other fatigue; Z85.118 Personal history of other malignant neoplasm of bronchus and lung; Z87.891 Personal history of nicotine dependence; Z79.899 Other long term (current) drug therapy; Z88.0 Allergy status to penicillin
CPT/HCPCS: 36415; 71046; 80053; 81001; 83880; 85025; 99283

== ENCOUNTER → 2017-06-14 | Outpatient (CLI) | payer OTHER ==
--- NOTE | 2017-06-14 15:32 | US ---
EXAMINATION TYPE: US venous doppler duplex UE RT DATE OF EXAM: 06/14/2017 COMPARISON: NONE CLINICAL HISTORY: M79.621 Pain in right upper arm R22.31swelling,. Chemo treatment 06/11/17. Burning s ensation right arm. History of superificial thrombus right arm SIDE PERFORMED: right Right Arm: No evidence of DVT. Superficial thrombus right cephalic vein extending from mid upper arm into lower arm. IMPRESSION: 1. No deep venous thrombosis right upper extremity. 2. There is some superficial thrombus within the cephalic vein.
== END | disposition home or self-care (01) ==
LOC: RADUSWWP 14:35
PROVIDERS: ATTEND Internal Medicine Hematology & Oncology
DX: I82.811 Embolism and thrombosis of superficial veins of right lower extremity (principal)

== ENCOUNTER 2017-06-18 13:53 | Emergency (ER) | payer OTHER ==
[2017-06-18] MEDS ORDERED: methylPREDNISolone SOD SUCCI 125 MG/2 ML VIAL IV STA (14:22)
[2017-06-18] MEDS ORDERED: FAMOTIDINE 20 MG/2 ML VIAL IV STA (14:24)
[2017-06-18] MEDS ORDERED: diphenhydrAMINE 50 MG/ML 1 ML VIAL IVP STA (14:24)
[2017-06-18] MEDS ORDERED: SODIUM CHLORIDE 0.9% 1,000 ML IV STA (14:26)
--- NOTE | 2017-06-18 14:37 | ED ---
General Adult HPI - General Chief complaint: Allergic Reaction Stated complaint: poss allergic reaction to meds-cancer pt Time Seen by Provider: 06/18/17 14:10 Source: patient, RN notes reviewed Mode of arrival: ambulatory Limitations: no limitations - History of Present Illness Initial comments: 42-year-old female patient presents to the emergency department for chief complaint of hives. Patient states she started to develop hives on her lower back last night. She states they started to spread since gotten worse. She states she also feels like her lips are swelling and her throat swelling. Patient does not have shortness of breath or difficulty breathing at this time. Patient states she took children's Benadryl last night at 2 AM with minimal relief. She states she started nystatin, omeprazole, and docusate senna 4 days [address] prescribed by Dr[address] López. She did not take the medications today because she was worried they may be causing the reaction. Patient's only known ALLERGIES to penicillin. She had a dose of Ceftin your which she finished 7 days ago. Patient has a significant PMH of lung cancer of the right upper lobe and is currently receiving chemo. She did have a lobectomy of the right upper lung as well. Patient states she has not been nauseous or vomited. Denies any chest pain, abdominal pain. Patient states she is also complaining of decreased hearing in the left ear for the past few days. - Related Data Home Medications Medication Instructions Recorded Confirmed ALPRAZolam [Xanax] 1 mg PO Q8H PRN 11/02/16 06/18/17 HYDROcodone/APAP 10-325MG [[place] 1 tab PO Q6H PRN 11/02/16 06/18/17 10-325] QUEtiapine FUMARATE [SEROquel XR] 150 mg PO HS 11/02/16 06/18/17 traMADol HCL [Ultram] 50 mg PO Q6H PRN 11/02/16 06/18/17 Albuterol Inhaler [Ventolin Hfa 2 puff INHALATION RT-Q6H PRN 01/25/17 06/18/17 Inhaler] SUMAtriptan SUCCINATE [Imitrex] 50 mg PO Q2H PRN 01/25/17 06/18/17 buPROPion [Wellbutrin] 75 mg PO DAILY 01/25/17 06/18/17 Albuterol Nebulized [Ventolin 2.5 mg INHALATION RT-Q6H PRN 04/03/17 06/18/17 Nebulized] Cyclobenzaprine [Flexeril] 10 mg PO TID 04/03/17 06/18/17 Folic Acid 1 mg PO DAILY 04/03/17 06/18/17 Ondansetron [Zofran ODT] 8 mg PO Q8H PRN 04/03/17 06/18/17 Aspirin 325 mg PO DAILY 06/18/17 06/18/17 Nystatin 100,000 Unit/ml Susp 500,000 units PO QID 06/18/17 06/18/17 [Mycostatin Oral Susp] Omeprazole [PriLOSEC] 20 mg PO DAILY 06/18/17 06/18/17 Pregabalin [Lyrica] 75 mg PO BID 06/18/17 06/18/17 Sennosides-Docusate Sodium 2 tab PO DAILY 06/18/17 06/18/17 [Senokot-S] Previous Rx's Medication Instructions Recorded Famotidine [Pepcid] 10 mg PO BID #10 tablet 06/18/17 diphenhydrAMINE [Benadryl] 25 mg PO BID #10 capsule 06/18/17 methylPREDNISolone Dose Pack 4 mg PO DIRECTED #21 package 06/18/17 [Medrol Dose Pack] Allergies Allergy/AdvReac Type Severity Reaction Status Date / Time Penicillins Allergy Rash/Hives Verified 06/18/17 14:34 Review of Systems ROS Statement: Those systems with pertinent positive or pertinent negative responses have been documented in the HPI. ROS Other: All systems not noted in ROS Statement are negative. Past Medical History Past Medical History: Asthma, Cancer, Rheumatoid Arthritis (RA) Additional Past Medical History / Comment(s): emphysema,chronic back and neck pain, Lung Cancer History of Any Multi-Drug Resistant Organisms: None Reported Past Surgical History: Back Surgery, Breast Surgery Additional Past Surgical History / Comment(s): fibrotic tumor -breast removed, right upper lobectomy Past Anesthesia/Blood Transfusion Reactions: No Reported Reaction Additional Past Anesthesia/Blood Transfusion Reaction / Comment(s): calusterphobia Past Psychological History: No Psychological Hx Reported Smoking Status: Former smoker Past Alcohol Use History: None Reported Past Drug Use History: None Reported - Past Family History Mother Family Medical History: Blood Disorder Additional Family Medical History / Comment(s): factor V leiden Father Additional Family Medical History / Comment(s): from complications of mrsa infection General Exam Limitations: no limitations General appearance: alert, in no apparent distress Head exam: Present: atraumatic, normocephalic, normal inspection ENT exam: Present: normal exam, mucous membranes moist, TM's normal bilaterally , normal external ear exam, other (No angioedema or throat swelling noted on exam. She has cerumen impaction of the left ear.) Neck exam: Present: normal inspection. Absent: tenderness, meningismus, lymphadenopathy Respiratory exam: Present: normal lung sounds bilaterally, other (Patient has a surgical scar on the right upper back where she had a right upper lobectomy according to the patient). Absent: respiratory distress, wheezes, rales, rhonchi, stridor Cardiovascular Exam: Present: regular rate, normal rhythm, normal heart sounds. Absent: systolic murmur, diastolic murmur, rubs, gallop, clicks GI/Abdominal exam: Present: soft, normal bowel sounds. Absent: distended, tenderness, guarding, rebound, rigid Back exam: Present: other (Surgical scar noted on right upper back.) Neurological exam: Present: alert, oriented X3, CN II-XII intact Psychiatric exam: Present: normal affect, normal mood Skin exam: Present: warm, dry, intact, rash (erythematous plaques consistent with hives noted on extremities and trunk). Absent: normal color Course Vital Signs 06/18/17 06/18/17 13:57 15:33 Temperature 97.4 F L Pulse Rate 117 H 84 Respiratory 20 14 Rate Blood Pressure 114/57 110/63 O2 Sat by Pulse 100 100 Oximetry Medical Decision Making - Medical Decision Making 42-year-old female with a significant PMH of lung cancer currently on chemo presents to the emergency department with chief complaint of hives. Patient states she also feels as if her lips and her throat was swelling. She states the symptoms all started last night and having getting worse since. No angioedema or swelling of the pharynx noted on exam. Patient started docusate, omeprazole, and nystatin 3 days ago. She is penicillin ALLERGIC and finished a course of Ceftin 7 days ago. Patient was given a liter bolus of saline, and IV Benadryl, Pepcid, solumedrol. Patient was feeling much better about an hour after these medications were given. Patient states her lips and throat no longer feel swollen. Her eyes no longer feel itchy. She states her eyes are still present although that is expected. Reevaluation of the throat and lips reveal no swelling. Patient will be discharged with prednisone, Pepcid, and Benadryl. She is to follow-up with oncologist and primary care physician tomorrow as she is on chemo. Disposition Clinical Impression: Allergic reaction Disposition: HOME SELF-CARE Condition: Good Instructions: Urticaria (ED), Anaphylaxis (ED) Additional Instructions: Please follow up with oncologist and primary care provider tomorrow in regards to the steroids. Please return to the emergency department if he noticed a swelling of the lips or throat, have trouble breathing, or have worsening symptoms. Prescriptions: diphenhydrAMINE [Benadryl] 25 mg PO BID #10 capsule Famotidine [Pepcid] 10 mg PO BID #10 tablet methylPREDNISolone Dose Pack [Medrol Dose Pack] 4 mg PO DIRECTED #21 package Referrals: Bryan Caputo MD [Primary Care Provider] - 1-2 days Time of Disposition: 16:03
[2017-06-18 16:44] VITALS: BP 99/54; PULSE 63; RESP 16; TEMP 99.5
== END 2017-06-18 16:53 | disposition home or self-care (01) ==
LOC: EC 13:53
DX: T78.40XA Allergy, unspecified, initial encounter (principal); C34.11 Malignant neoplasm of upper lobe, right bronchus or lung; Z87.891 Personal history of nicotine dependence; Z86.018 Personal history of other benign neoplasm; Z79.899 Other long term (current) drug therapy; Z79.82 Long term (current) use of aspirin; Z88.0 Allergy status to penicillin
CPT/HCPCS: 99283; 96374; 96375 ×2; 96361; J1200; J2930

== ENCOUNTER 2018-01-23 12:28 | Emergency (ER) | payer OTHER ==
--- NOTE | 2018-01-23 12:52 | ED ---
Chest Pain HPI - General Chief Complaint: Chest Pain Stated Complaint: chest pain Time Seen by Provider: 01/23/18 12:48 Source: patient, RN notes reviewed, old records reviewed Mode of arrival: wheelchair Limitations: no limitations - History of Present Illness Initial Comments: This is a 42-year-old female to the ER for evaluation chest pain. Patient has known history of chest pain with known lung tumor and lung resection. Patient started with worse chest pain today she did try to see her family doctor with this discharged to come to the emergency room. Again patient's history is significant for CA, tumor. Patient has severe pain but no shortness of breath. No recent fevers cough or congestion MD Complaint: chest pain -: days(s) Onset: during rest, during exertion Pain Location: right chest Pain Radiation: RUE Severity: mild Severity scale (1-10): 5 Quality: aching, sharp Consistency: intermittent Improves With: medication-other Context: recent surgery Treatments Prior to Arrival: none - Related Data Home Medications Medication Instructions Recorded Confirmed ALPRAZolam [Xanax] 1 mg PO Q8H PRN 11/02/16 06/18/17 HYDROcodone/APAP 10-325MG [[place] 1 tab PO Q6H PRN 11/02/16 06/18/17 10-325] QUEtiapine FUMARATE [SEROquel XR] 150 mg PO HS 11/02/16 06/18/17 traMADol HCL [Ultram] 50 mg PO Q6H PRN 11/02/16 06/18/17 Albuterol Inhaler [Ventolin Hfa 2 puff INHALATION RT-Q6H PRN 01/25/17 06/18/17 Inhaler] SUMAtriptan SUCCINATE [Imitrex] 50 mg PO Q2H PRN 01/25/17 06/18/17 buPROPion [Wellbutrin] 75 mg PO DAILY 01/25/17 06/18/17 Albuterol Nebulized [Ventolin 2.5 mg INHALATION RT-Q6H PRN 04/03/17 06/18/17 Nebulized] Cyclobenzaprine [Flexeril] 10 mg PO TID 04/03/17 06/18/17 Folic Acid 1 mg PO DAILY 04/03/17 06/18/17 Ondansetron [Zofran ODT] 8 mg PO Q8H PRN 04/03/17 06/18/17 Aspirin 325 mg PO DAILY 06/18/17 06/18/17 Nystatin 100,000 Unit/ml Susp 500,000 units PO QID 06/18/17 06/18/17 [Mycostatin Oral Susp] Omeprazole [PriLOSEC] 20 mg PO DAILY 06/18/17 06/18/17 Pregabalin [Lyrica] 75 mg PO BID 06/18/17 06/18/17 Sennosides-Docusate Sodium 2 tab PO DAILY 06/18/17 06/18/17 [Senokot-S] Previous Rx's Medication Instructions Recorded Famotidine [Pepcid] 10 mg PO BID #10 tablet 06/18/17 diphenhydrAMINE [Benadryl] 25 mg PO BID #10 capsule 06/18/17 methylPREDNISolone Dose Pack 4 mg PO DIRECTED #21 package 06/18/17 [Medrol Dose Pack] Allergies Allergy/AdvReac Type Severity Reaction Status Date / Time Penicillins Allergy Rash/Hives Verified 01/23/18 13:52 Review of Systems ROS Statement: Those systems with pertinent positive or pertinent negative responses have been documented in the HPI. ROS Other: All systems not noted in ROS Statement are negative. EKG Findings - EKG Comments: EKG Findings:: EKG shows sinus rhythm rate of 75, [place] 160, QRS 80, QTC 407 Past Medical History Past Medical History: Asthma, Cancer, Rheumatoid Arthritis (RA) Additional Past Medical History / Comment(s): emphysema,chronic back and neck pain, Lung Cancer History of Any Multi-Drug Resistant Organisms: None Reported Past Surgical History: Back Surgery, Breast Surgery Additional Past Surgical History / Comment(s): fibrotic tumor -breast removed, right upper lobectomy Past Anesthesia/Blood Transfusion Reactions: No Reported Reaction Additional Past Anesthesia/Blood Transfusion Reaction / Comment(s): calusterphobia Past Psychological History: No Psychological Hx Reported Smoking Status: Former smoker Past Alcohol Use History: None Reported Past Drug Use History: None Reported - Past Family History Mother Family Medical History: Blood Disorder Additional Family Medical History / Comment(s): factor V leiden Father Additional Family Medical History / Comment(s): from complications of mrsa infection General Exam Limitations: no limitations General appearance: alert, in no apparent distress Head exam: Present: atraumatic, normocephalic, normal inspection Eye exam: Present: normal appearance, PERRL, EOMI. Absent: scleral icterus, conjunctival injection, periorbital swelling ENT exam: Present: normal exam, mucous membranes moist Neck exam: Present: normal inspection. Absent: tenderness, meningismus, lymphadenopathy Respiratory exam: Present: normal lung sounds bilaterally. Absent: respiratory distress, wheezes, rales, rhonchi, stridor Cardiovascular Exam: Present: regular rate, normal rhythm, normal heart sounds. Absent: systolic murmur, diastolic murmur, rubs, gallop, clicks GI/Abdominal exam: Present: soft, normal bowel sounds. Absent: distended, tenderness, guarding, rebound, rigid Extremities exam: Present: normal inspection, full ROM, normal capillary refill. Absent: tenderness, pedal edema, joint swelling, calf tenderness Back exam: Present: normal inspection Neurological exam: Present: alert, oriented X3, CN II-XII intact Psychiatric exam: Present: normal affect, normal mood Skin exam: Present: warm, dry, intact, normal color. Absent: rash Course Vital Signs 01/23/18 01/23/18 01/23/18 12:34 12:50 13:00 Temperature 98.4 F Pulse Rate 94 71 Respiratory 18 15 Rate Blood Pressure 103/76 111/79 O2 Sat by Pulse 100 98 99 Oximetry 01/23/18 01/23/18 01/23/18 13:10 13:20 13:30 Temperature Pulse Rate 79 72 67 Respiratory 17 22 16 Rate Blood Pressure 111/82 111/82 111/82 O2 Sat by Pulse 100 100 100 Oximetry 01/23/18 13:40 Temperature Pulse Rate 70 Respiratory 15 Rate Blood Pressure 102/84 O2 Sat by Pulse 100 Oximetry - Reevaluation(s) Reevaluation #1: 01/23/18 14:41 Medical record is reviewed Reevaluation #2: 01/23/18 14:41 Patient has adequate pain control Chest Pain MDM - MDM 40 female the ER with acute on chronic chest pain chest pain is atypical in nature secondary to postop issues with cancer pain. Patient has adequate pain control now can be discharged home Disposition Clinical Impression: Mass of right lung, Chest pain Disposition: HOME SELF-CARE Condition: Good Instructions: Chest Pain (ED) Is patient prescribed a controlled substance at d/c from ED?: No Referrals: Bryan Caputo MD [Primary Care Provider] - 1-2 days
[2018-01-23 13:26] LABS: Basophils % (A) 0 %; Eosinophils # (A) 0.2 k/uL (0-0.7); Eosinophils % (A) 3 %; HCT 42.8 % (34.0-46.0); Lymphocytes # (A) 1.8 k/uL (1.0-4.8); Lymphocytes % (A) 35 %; MCH 32.1 pg (25.0-35.0); MCHC 32.7 g/dL (31.0-37.0); MCV 98.4 fL (80.0-100.0); Mean Platelet Volume 6.7; Monocytes # (A) 0.2 k/uL (0-1.0); Monocytes % (A) 4 %; Neutrophils # (A) 2.9 k/uL (1.3-7.7); Neutrophils % (A) 56 %; Platelet Count 301 k/uL (150-450); RBC 4.35 m/uL (3.80-5.40); RDW 13.2 % (11.5-15.5); WBC 5.2 k/uL (3.8-10.6)
[2018-01-23 13:32] LABS: ALT 30 U/L (9-52); AST 27 U/L (14-36); Albumin 4.1 g/dL (3.5-5.0); Alkaline Phosphatase 65 U/L (38-126); Anion Gap 6 mmol/L; Blood Urea Nitrogen 12 mg/dL (7-17); Calcium 9.5 mg/dL (8.4-10.2); Carbon Dioxide 25 mmol/L (22-30); Chloride 109 mmol/L (98-107); Glucose 108 mg/dL (74-99); Lipase 39 U/L (23-300); Magnesium 1.9 mg/dL (1.6-2.3); Potassium 4.4 mmol/L (3.5-5.1); Sodium 140 mmol/L (137-145); Total Bilirubin 0.5 mg/dL (0.2-1.3); Total Protein 7.1 g/dL (6.3-8.2)
[2018-01-23] MEDS: MORPHINE SULFATE 4 MG/ML SYRINGE IVP STA ×2 (13:33→15:09)
--- NOTE | 2018-01-23 13:40 | XR ---
EXAMINATION TYPE: XR chest 2V DATE OF EXAM: 01/23/2018 COMPARISON: 04/03/2017 HISTORY: Chest pain recent right upper lobectomy. TECHNIQUE: Frontal and lateral views of the chest are obtained. FINDINGS: Surgical sutures are seen within the peripheral right upper lung. Right hemithorax volume loss is redemonstrated with pleural parenchymal thickening or scarring tenting the right hemidiaphrag m. No new focal consolidation, pleural effusion or pneumothorax. Cardia mediastinal silhouette is wit hin normal limits. Osseous structures are grossly intact. IMPRESSION: No acute cardiopulmonary process.
[2018-01-23 13:41] LABS: Partial Thromboplastin Time 22.8 sec (22.0-30.0); Prothrombin Time 9.6 sec (9.0-12.0)
[2018-01-23 13:48] LABS: Creatine Kinase 45 U/L (30-135)
[2018-01-23 14:01] LABS: Creatine Kinase MB 0.3 ng/mL (0.0-2.4); Troponin I <0.012 ng/mL (0.000-0.034)
[2018-01-23 15:03] VITALS: BP 130/90; PULSE 61; RESP 16
[2018-01-23 15:18] VITALS: TEMP 98
== END 2018-01-23 15:15 | disposition home or self-care (01) ==
LOC: EC 12:28
DX: R91.8 Other nonspecific abnormal finding of lung field (principal); R07.89 Other chest pain; J45.909 Unspecified asthma, uncomplicated; M06.9 Rheumatoid arthritis, unspecified; J43.9 Emphysema, unspecified; Z85.118 Personal history of other malignant neoplasm of bronchus and lung; Z87.891 Personal history of nicotine dependence; Z90.2 Acquired absence of lung [part of]; Z98.890 Other specified postprocedural states; Z79.82 Long term (current) use of aspirin; Z79.899 Other long term (current) drug therapy; Z88.0 Allergy status to penicillin
CPT/HCPCS: 36415; 71046; 80053; 82550; 82553; 83690; 83735; 83880; 84484; 85025; 85610; 85730; 93005; 96374; 99285

== ENCOUNTER → 2018-02-18 | Outpatient (CLI) | payer OTHER ==
--- NOTE | 2018-02-18 08:54 | CT ---
EXAMINATION TYPE: CT chest w con DATE OF EXAM: 02/18/2018 COMPARISON: November 02, 2016 HISTORY: Follow up abnormal CXR at [facility], history of lung CA. CT DLP: 323 mGycm Automated exposure control for dose reduction was used. CONTRAST: CT scan of the chest is performed with IV Contrast, patient injected with 100 mL of Isovue 300. FINDINGS: LUNGS: Previously noted spiculated right upper lobe mass has been removed. Postoperative changes are seen within the right upper lobe. Mild right-sided volume loss. No evidence for recurrent or residual mass at this time. Pleural scarring identified. MEDIASTINUM: There are no greater than 1 cm hilar or mediastinal lymph nodes. No pericardial effusi on is seen. Thoracic aorta is of normal caliber. The heart is not enlarged. UPPER ABDOMEN: No significant abnormality appreciated. OTHER: No additional significant abnormality is seen. IMPRESSION: 1. Postoperative changes right upper lobe without evidence for recurrent or residual disease at this time.
== END ==
LOC: RADCTMAIN 08:01
PROVIDERS: ATTEND Internal Medicine Hematology & Oncology
DX: C34.11 Malignant neoplasm of upper lobe, right bronchus or lung (principal); Z98.890 Other specified postprocedural states; Z88.0 Allergy status to penicillin
CPT/HCPCS: 71260; Q9967

== ENCOUNTER → 2018-08-16 | Outpatient (CLI) | payer OTHER ==
--- NOTE | 2018-08-16 08:50 | CT ---
EXAMINATION TYPE: CT chest w con DATE OF EXAM: 08/16/2018 COMPARISON: 02/18/2018 and 11/02/2016 HISTORY: Lung cancer CT DLP: 345 mGycm. Automated Exposure Control for Dose Reduction was Utilized. TECHNIQUE: CT scan of the thorax is performed following with IV Contrast, patient injected with 100 ml mL of Isovue 300. FINDINGS: LUNGS: Right upper lobectomy with subsequent volume loss is again noted. The bandlike area of fibrosi s with associated surgical suture line and calcifications appears stable from the prior of 2018 measu ring 6 mm in thickness, unchanged from the prior. Curvilinear sutures at the periphery associated wit h a small soft tissue density representing fibrosis are also unchanged in the right upper lobe. 2 pul monary nodules in the right upper lobe remain also unchanged from 2018 measuring 3 mm on image 23 and 3 mm on image 13. No new pulmonary nodule or soft tissue density is seen at the resection site or wi thin the remainder the lungs. There is mild underlying emphysematous change. Minimal left basilar sub segmental atelectasis is noted. Main tracheobronchial tree is patent. MEDIASTINUM: There are no greater than 1 cm hilar or mediastinal lymph nodes. No pericardial effusi on is seen. OTHER: The liver is enlarged with mild degree hepatic steatosis appreciated limiting evaluation for h epatic masses. Additionally the full extent of the liver is not visualized on today's exam. There is stable sclerosis of the lamina of the left T2 vertebral body and pedicle of the left L3 vertebral bod y as well as pedicle and transverse process of the L4 vertebral body on the left. Poststernotomy kenny ges are seen of ribs 6 on the right. IMPRESSION: Post operative changes from partial lobectomy of the right upper lobe with stable fibrosi s. No evidence of recurrence. There are 2 adjacent 3 mm solid pulmonary nodules are unchanged in size from the exam of 02/18/2018 but not present on the exam of 11/29/2016. Therefore continued surveillan ce is recommended. No new adenopathy.
== END | disposition home or self-care (01) ==
LOC: RADCTMAIN 07:11
PROVIDERS: ATTEND Internal Medicine Hematology & Oncology
DX: J84.10 Pulmonary fibrosis, unspecified (principal); R91.8 Other nonspecific abnormal finding of lung field; C34.11 Malignant neoplasm of upper lobe, right bronchus or lung; Z90.2 Acquired absence of lung [part of]; Z88.0 Allergy status to penicillin
CPT/HCPCS: 71260; Q9967

== ENCOUNTER 2018-10-18 00:10 | Emergency (ER) | payer OTHER ==
[2018-10-18 03:32] LABS: Basophils # (A) 0.1 k/uL (0-0.2); Basophils % (A) 1 %; Eosinophils # (A) 0.3 k/uL (0-0.7); Eosinophils % (A) 4 %; HCT 38.6 % (34.0-46.0); Lymphocytes % (A) 40 %; MCH 31.6 pg (25.0-35.0); MCHC 33.6 g/dL (31.0-37.0); MCV 94.1 fL (80.0-100.0); Mean Platelet Volume 7.2; Monocytes # (A) 0.4 k/uL (0-1.0); Monocytes % (A) 5 %; Neutrophils # (A) 3.6 k/uL (1.3-7.7); Neutrophils % (A) 49 %; Platelet Count 327 k/uL (150-450); RDW 14.8 % (11.5-15.5); WBC 7.4 k/uL (3.8-10.6)
--- NOTE | 2018-10-18 03:39 | XR ---
EXAM: XR Abdomen, 1 View CLINICAL HISTORY: ITS.REASON XR Reason: abdominal pain TECHNIQUE: Frontal supine view of the abdomen/pelvis. COMPARISON: No relevant prior studies available. FINDINGS: Lower thorax: Lung bases are clear. Gastrointestinal tract: Stool throughout the colon. No dilation. Bones/joints: Unremarkable. Other findings: No suspicious calcifications. IMPRESSION: Stool throughout the colon can be seen with constipation. No bowel obstruction or acute disease.
[2018-10-18 03:40] LABS: Appearance,Urine Clear (Clear); Bilirubin,Urine Negative (Negative); Blood,Urine Negative (Negative); Color,Urine Yellow; Glucose,Urine (UA) Negative (Negative); Ketones,Urine Negative (Negative); Leukocyte Esterase,Urine Small (Negative); Mucus,Urine Rare /hpf; Nitrite,Urine Positive (Negative); PH, Urine 5.5 (5.0-8.0); Protein,Urine Negative (Negative); RBC,Urine 1 /hpf (0-5); Specific Gravity,Urine 1.017 (1.001-1.035); Squamous Epithelial Cell,Urine 2 /hpf (0-4); Urobilinogen,Urine <2.0 mg/dL (<2.0); WBC,Urine 9 /hpf (0-5)
[2018-10-18 03:41] LABS: ALT 21 U/L (9-52); AST 20 U/L (14-36); African American GFR (CKD) >90 (>60 ml/min/1.73 sqM); Alkaline Phosphatase 67 U/L (38-126); Amylase 39 U/L (30-110); Anion Gap 8 mmol/L; Blood Urea Nitrogen 12 mg/dL (7-17); Calcium 9.3 mg/dL (8.4-10.2); Carbon Dioxide 24 mmol/L (22-30); Chloride 107 mmol/L (98-107); Glucose 99 mg/dL (74-99); Lipase 100 U/L (23-300); Potassium 4.2 mmol/L (3.5-5.1); Sodium 139 mmol/L (137-145); Total Bilirubin 0.1 mg/dL (0.2-1.3); Total Protein 6.8 g/dL (6.3-8.2)
[2018-10-18] MEDS ORDERED: LACTULOSE 20 GM/30 ML CUP PO ONE (04:01)
[2018-10-18] MEDS ORDERED: PEG 3350-NA SULF,BICARB,CL/KCL 4,000 ML BOTTLE PO ONE (04:05)
--- NOTE | 2018-10-18 04:07 | ED ---
Female Urogenital HPI - General Chief complaint: Urogenital Stated complaint: Urinary Retention Time Seen by Provider: 10/18/18 02:07 Source: patient Mode of arrival: ambulatory Limitations: no limitations - History of Present Illness Initial comments: Patient is a 43-year-old female currently undergoing chemotherapy for lung cancer is presenting to the emergency Department with a chief complaint that she "can't pee". Patient reports she is currently undergoing chemotherapy treatment and his been battling lung cancer for the past 2 years. Patient reports she is on multiple narcotic pain medications. Patient reports not make any bowel movements over the last few days but is able to pass flatus. Patient reports she is unable to urinate since yesterday. Patient denies urinary symptoms prior to this incident. Patient also reports abdominal bloating. Patient denies nausea, vomiting, diarrhea, headache fever,. - Related Data Home Medications Medication Instructions Recorded Confirmed ALPRAZolam [Xanax] 1 mg PO Q8H PRN 11/02/16 01/23/18 HYDROcodone/APAP 10-325MG [[place] 1 tab PO Q6H PRN 11/02/16 01/23/18 10-325] QUEtiapine FUMARATE [SEROquel XR] 150 mg PO HS 11/02/16 01/23/18 traMADol HCL [Ultram] 1 - 2 mg PO Q6H PRN 11/02/16 01/23/18 Albuterol Inhaler [Ventolin Hfa 2 puff INHALATION RT-Q6H PRN 01/25/17 01/23/18 Inhaler] SUMAtriptan SUCCINATE [Imitrex] 50 mg PO Q2H PRN 01/25/17 01/23/18 buPROPion [Wellbutrin] 75 mg PO DAILY 01/25/17 01/23/18 Albuterol Nebulized [Ventolin 2.5 mg INHALATION RT-Q6H PRN 04/03/17 01/23/18 Nebulized] Cyclobenzaprine [Flexeril] 10 mg PO TID 04/03/17 01/23/18 Aspirin 325 mg PO DAILY 06/18/17 01/23/18 Omeprazole [PriLOSEC] 20 mg PO DAILY 06/18/17 01/23/18 Sennosides-Docusate Sodium 2 tab PO DAILY 06/18/17 01/23/18 [Senokot-S] EPINEPHrine [Epipen 2-Danny] 0.3 mg IM ONCE PRN 01/23/18 01/23/18 Lidocaine 4% Cream [Lmx 4] 2 gram TOPICAL DIRECTED 01/23/18 01/23/18 Loratadine [Claritin] 10 mg PO DAILY 01/23/18 01/23/18 Ondansetron [Zofran] 4 mg PO Q8HR PRN 01/23/18 01/23/18 Umeclidinium [place] [Incruse 1 puff INHALATION RT-DAILY 01/23/18 01/23/18 Ellipta] Previous Rx's Medication Instructions Recorded Cephalexin [Keflex] 250 mg PO QID #20 cap 10/18/18 Allergies Allergy/AdvReac Type Severity Reaction Status Date / Time Penicillins Allergy Rash/Hives Verified 01/23/18 14:41 Review of Systems ROS Statement: Those systems with pertinent positive or pertinent negative responses have been documented in the HPI. ROS Other: All systems not noted in ROS Statement are negative. Past Medical History Past Medical History: Asthma, Cancer, Rheumatoid Arthritis (RA) Additional Past Medical History / Comment(s): emphysema,chronic back and neck pain, Lung Cancer History of Any Multi-Drug Resistant Organisms: None Reported Past Surgical History: Back Surgery, Breast Surgery Additional Past Surgical History / Comment(s): fibrotic tumor -breast removed,right upper lobectomy Past Anesthesia/Blood Transfusion Reactions: No Reported Reaction Additional Past Anesthesia/Blood Transfusion Reaction / Comment(s): calusterphobia Past Psychological History: No Psychological Hx Reported Smoking Status: Former smoker Past Alcohol Use History: None Reported Past Drug Use History: None Reported - Past Family History Mother Family Medical History: Blood Disorder Additional Family Medical History / Comment(s): factor V leiden Father Additional Family Medical History / Comment(s): from complications of mrsa infection General Exam Limitations: no limitations General appearance: alert, in no apparent distress Head exam: Present: atraumatic, normocephalic, normal inspection Eye exam: Present: normal appearance, PERRL, EOMI Pupils: Present: normal accommodation ENT exam: Present: normal exam, mucous membranes moist Neck exam: Present: normal inspection, full ROM Respiratory exam: Present: decreased breath sounds (Right lung base due to lobectomy.) Cardiovascular Exam: Present: regular rate, normal rhythm, normal heart sounds GI/Abdominal exam: Present: soft, distended (Mild to moderate distention), tenderness (Mild tenderness on palpation), normal bowel sounds. Absent: guarding, rebound, rigid, diminished bowel sounds Extremities exam: Present: normal inspection, full ROM Back exam: Present: normal inspection, full ROM. Absent: tenderness, CVA tende rness (R), CVA tenderness (L) Neurological exam: Present: alert, oriented X3 Psychiatric exam: Present: normal affect, normal mood Skin exam: Present: warm, intact, normal color Course Vital Signs 10/18/18 10/18/18 00:48 05:19 Temperature 98.6 F 98.7 F Pulse Rate 72 66 Respiratory 18 16 Rate Blood Pressure 99/65 102/70 O2 Sat by Pulse 99 96 Oximetry Medical Decision Making - Medical Decision Making Patient is a 42-year-old female presenting to emergency Department with a chief complaint of inability to urinate. Bladder scan on arrival was obtained measuring 200 mL of fluid. CBC, CMP are unremarkable. UA is indicative of a mild UTI. Considering the inability to urinate I am going to treat the patient for UTI. KUB is indicative of moderate stool impaction in the colon with no obstruction. Patient advised to have enema performed but she declined. Patient wants to be discharged with laxatives. Patient was given Golytely lavage and advised to take it once she is home. Patient advised to start taking daily stool softeners. I'm suspecting the constipation to be secondary to the multi ple narcotic medications. Patient advised to follow with urology regarding the bladder issues.. Strict return parameters were thoroughly discussed with patient was understanding and agreeable. Case discussed with physician. - Lab Data Result diagrams: 10/18/18 03:25 10/18/18 03:25 Lab Results 10/18/18 10/18/18 10/18/18 Range/Units 03:25 03:25 03:25 WBC 7.4 (3.8-10.6) k/uL RBC 4.10 (3.80-5.40) m/uL Hgb 13.0 (11.4-16.0) gm/dL Hct 38.6 (34.0-46.0) % MCV 94.1 (80.0-100.0) fL MCH 31.6 (25.0-35.0) pg MCHC 33.6 (31.0-37.0) g/dL RDW 14.8 (11.5-15.5) % Plt Count 327 (150-450) k/uL Neutrophils % 49 % Lymphocytes % 40 % Monocytes % 5 % Eosinophils % 4 % Basophils % 1 % Neutrophils # 3.6 (1.3-7.7) k/uL Lymphocytes # 3.0 (1.0-4.8) k/uL Monocytes # 0.4 (0-1.0) k/uL Eosinophils # 0.3 (0-0.7) k/uL Basophils # 0.1 (0-0.2) k/uL Sodium 139 (137-145) mmol/L Potassium 4.2 (3.5-5.1) mmol/L Chloride 107 (98-107) mmol/L Carbon Dioxide 24 (22-30) mmol/L Anion Gap 8 mmol/L BUN 12 (7-17) mg/dL Creatinine 0.69 (0.52-1.04) mg/dL Est GFR (CKD-EPI)AfAm >90 (>60 ml/min/1.73 sqM) Est GFR (CKD-EPI)NonAf >90 (>60 ml/min/1.73 sqM) Glucose 99 (74-99) mg/dL Calcium 9.3 (8.4-10.2) mg/dL Total Bilirubin 0.1 L (0.2-1.3) mg/dL AST 20 (14-36) U/L ALT 21 (9-52) U/L Alkaline Phosphatase 67 (38-126) U/L Total Protein 6.8 (6.3-8.2) g/dL Albumin 4.0 (3.5-5.0) g/dL Amylase 39 (30-110) U/L Lipase 100 (23-300) U/L Urine Color Yellow Urine Appearance Clear (Clear) Urine pH 5.5 (5.0-8.0) Ur Specific [place] 1.017 (1.001-1.035) Urine Protein Negative (Negative) Urine Glucose (UA) Negative (Negative) Urine Ketones Negative (Negative) Urine Blood Negative (Negative) Urine Nitrite Positive H (Negative) Urine Bilirubin Negative (Negative) Urine Urobilinogen <2.0 (<2.0) mg/dL Ur Leukocyte Esterase Small H (Negative) Urine RBC 1 (0-5) /hpf Urine WBC 9 H (0-5) /hpf Ur Squamous Epith Cells 2 (0-4) /hpf Urine Mucus Rare H (None) /hpf Disposition Clinical Impression: Abdominal bloating Disposition: HOME SELF-CARE Condition: Stable Instructions (If sedation given, give patient instructions): Constipation (DC), High Fiber Diet (ED) Additional Instructions: Please follow up with urology. Please take prescribed medication as directed. Please return to emergency department if symptoms worsen. Prescriptions: Cephalexin [Keflex] 250 mg PO QID #20 cap Is patient prescribed a controlled substance at d/c from ED?: No Referrals: Bryan Caputo MD [Primary Care Provider] - 1-2 days Time of Disposition: 04:07
[2018-10-18 05:20] VITALS: BP 102/70; PULSE 66; RESP 16; TEMP 98.7
== END 2018-10-18 05:20 | disposition home or self-care (01) ==
LOC: EC 00:10
DX: R14.0 Abdominal distension (gaseous) (principal); K56.41 Fecal impaction; J45.909 Unspecified asthma, uncomplicated; M06.9 Rheumatoid arthritis, unspecified; Z85.118 Personal history of other malignant neoplasm of bronchus and lung; Z87.891 Personal history of nicotine dependence; Z79.82 Long term (current) use of aspirin; Z79.51 Long term (current) use of inhaled steroids; Z79.899 Other long term (current) drug therapy; Z88.0 Allergy status to penicillin; Z53.29 Procedure and treatment not carried out because of patient's decision for other reasons
CPT/HCPCS: 36415; 51798; 74018; 80053; 81001; 82150; 83690; 85025; 99284

== ENCOUNTER 2018-11-29 18:55 | Emergency (ER) | payer OTHER ==
[2018-11-29 18:59] VITALS: RESP 18
[2018-11-29] MEDS ORDERED: SODIUM CHLORIDE 0.9% 1,000 ML IV STA (19:02)
[2018-11-29 19:27] LABS: Basophils % (A) 0 %; Eosinophils # (A) 0.3 k/uL (0-0.7); Eosinophils % (A) 3 %; HCT 44.2 % (34.0-46.0); HGB 14.6 gm/dL (11.4-16.0); Lymphocytes # (A) 2.7 k/uL (1.0-4.8); Lymphocytes % (A) 28 %; MCH 32.4 pg (25.0-35.0); Mean Platelet Volume 6.6; Monocytes # (A) 0.4 k/uL (0-1.0); Monocytes % (A) 4 %; Neutrophils % (A) 62 %; Platelet Count 349 k/uL (150-450); RBC 4.51 m/uL (3.80-5.40); RDW 13.5 % (11.5-15.5); WBC 9.6 k/uL (3.8-10.6)
[2018-11-29 19:34] LABS: ALT 25 U/L (9-52); AST 25 U/L (14-36); African American GFR (CKD) >90 (>60 ml/min/1.73 sqM); Albumin 4.5 g/dL (3.5-5.0); Alkaline Phosphatase 70 U/L (38-126); Anion Gap 10 mmol/L; Blood Urea Nitrogen 12 mg/dL (7-17); Calcium 9.4 mg/dL (8.4-10.2); Carbon Dioxide 26 mmol/L (22-30); Chloride 106 mmol/L (98-107); Glucose 108 mg/dL (74-99); Potassium 3.7 mmol/L (3.5-5.1); Sodium 142 mmol/L (137-145); Total Bilirubin <0.1 mg/dL (0.2-1.3); Total Protein 7.6 g/dL (6.3-8.2)
--- NOTE | 2018-11-29 19:41 | ED ---
General Adult HPI - General Chief complaint: Abdominal Pain Stated complaint: Abd Pain Time Seen by Provider: 11/29/18 19:01 Source: patient, RN notes reviewed, old records reviewed Mode of arrival: ambulatory Limitations: no limitations - History of Present Illness Initial comments: 43-year-old female patient with past medical history significant for active lung cancer, status post left lobectomy presents ED chief complaint of persistent abdominal pain. Patient reports that for approximately 3 weeks she has had pain in her suprapubic and right lower quadrant regions. Patient also reports that she feels as if her abdomen is very bloated. Patient reports that she was seen by her oncologist and he is planning on doing an ultrasound of the right lwoer quadrant however it was never scheduled. Patient additionally complains of nausea and vomiting which she says is baseline for her. Systemic: Pt denies fatigue, fever/chills, rash. Pt denies weakness, night sweats, weight loss. Neuro: Pt denies headache, visual disturbances, syncope or pre-syncope. HEENT: Pt denies ocular discharge or irritation, otalgia, rhinorrhea, pharyngitis or notable lymphadenopathy. Cardiopulmonary: Pt denies chest pain, SOB, heart palpitations, dyspnea on exertion. : Pt denies dysuria, burning w/ urination, frequency/urgency. Denies new onset urinary or bowel incontinence. MSK: Pt denies myalgia, loss of strength or function in extremities. Neuro: Pt denies new onset weakness, paresthesias. - Related Data Home Medications Medication Instructions Recorded Confirmed ALPRAZolam [Xanax] 1 mg PO Q8H PRN 11/02/16 01/23/18 HYDROcodone/APAP 10-325MG [[place] 1 tab PO Q6H PRN 11/02/16 01/23/18 10-325] QUEtiapine FUMARATE [SEROquel XR] 150 mg PO HS 11/02/16 01/23/18 traMADol HCL [Ultram] 1 - 2 mg PO Q6H PRN 11/02/16 01/23/18 Albuterol Inhaler [Ventolin Hfa 2 puff INHALATION RT-Q6H PRN 01/25/17 01/23/18 Inhaler] SUMAtriptan SUCCINATE [Imitrex] 50 mg PO Q2H PRN 01/25/17 01/23/18 buPROPion [Wellbutrin] 75 mg PO DAILY 01/25/17 01/23/18 Albuterol Nebulized [Ventolin 2.5 mg INHALATION RT-Q6H PRN 04/03/17 01/23/18 Nebulized] Cyclobenzaprine [Flexeril] 10 mg PO TID 04/03/17 01/23/18 Aspirin 325 mg PO DAILY 06/18/17 01/23/18 Omeprazole [PriLOSEC] 20 mg PO DAILY 06/18/17 01/23/18 Sennosides-Docusate Sodium 2 tab PO DAILY 06/18/17 01/23/18 [Senokot-S] EPINEPHrine [Epipen 2-Danyn] 0.3 mg IM ONCE PRN 01/23/18 01/23/18 Lidocaine 4% Cream [Lmx 4] 2 gram TOPICAL DIRECTED 01/23/18 01/23/18 Loratadine [Claritin] 10 mg PO DAILY 01/23/18 01/23/18 Ondansetron [Zofran] 4 mg PO Q8HR PRN 01/23/18 01/23/18 Umeclidinium [place] [Incruse 1 puff INHALATION RT-DAILY 01/23/18 01/23/18 Ellipta] Previous Rx's Medication Instructions Recorded Cephalexin [Keflex] 250 mg PO QID #20 cap 10/18/18 Allergies Allergy/AdvReac Type Severity Reaction Status Date / Time Penicillins Allergy Rash/Hives Verified 11/29/18 18:56 Review of Systems ROS Statement: Those systems with pertinent positive or pertinent negative responses have been documented in the HPI. ROS Other: All systems not noted in ROS Statement are negative. Past Medical History Past Medical History: Asthma, Cancer, Rheumatoid Arthritis (RA) Additional Past Medical History / Comment(s): emphysema,chronic back and neck pain, Lung Cancer History of Any Multi-Drug Resistant Organisms: None Reported Past Surgical History: Back Surgery, Breast Surgery Additional Past Surgical History / Comment(s): fibrotic tumor -breast remove d,right upper lobectomy Past Anesthesia/Blood Transfusion Reactions: No Reported Reaction Additional Past Anesthesia/Blood Transfusion Reaction / Comment(s): calusterphobia Past Psychological History: No Psychological Hx Reported Smoking Status: Former smoker Past Alcohol Use History: Rare Past Drug Use History: None Reported - Past Family History Mother Family Medical History: Blood Disorder Additional Family Medical History / Comment(s): factor V leiden Father Additional Family Medical History / Comment(s): from complications of mrsa infection General Exam - General Exam Comments Initial Comments: Constitutional: NAD, AOX3, Pt has pleasant affect. HEENT: NC/AT, trachea midline, neck supple, no lymphadenopathy. Posterior pharynx non erythematous, without exudates. External ears appear normal, without discharge. Mucous membranes moist. Eyes PERRLA, EOM intact. There is no scleral icterus. No pallor noted. Cardiopulmonary: RRR, no murmurs, rubs or gallops, no JVD noted. Lungs CTAB in anterior and posterior robbins. No peripheral edema. Abdominal exam: Abdomen soft and mildly distended. Abdomen mildly tender to palpation in suprapubic and RLQ. Bowel sounds active in LLQ. No hepatosplenomegaly. No ecchymosis Neuro: CN II-XII grossly intact. No nuchal rigidity. No raccon eyes, no borrero sign, no hemotympanum. No cervical spinal tenderness. MSK: No posterior calf tenderness bilaterally, homans sign negative bilaterally. Posterior tibialis and radial pulse +2 bilaterally. Sensation intact in upper and lower extremities. Full active ROM in upper and lower extremities, 5/5 stregnth. Limitations: no limitations Course Vital Signs 11/29/18 11/29/18 11/29/18 18:56 20:35 20:45 Temperature 97.9 F Pulse Rate 100 98 90 Respiratory 18 18 18 Rate Blood Pressure 135/81 97/73 120/79 O2 Sat by Pulse 97 98 97 Oximetry Medical Decision Making - Medical Decision Making 43-year-old female patient with past medical history significant for active lung cancer, status post left lobectomy presents ED chief complaint of persistent abdominal pain. Patient reports that for approximately 3 weeks she has had pain in her suprapubic and right lower quadrant regions. Patient also reports that she feels as if her abdomen is very bloated. Patient reports that she was seen by her oncologist and he is planning on doing an ultrasound of the right lwoer quadrant however it was never scheduled. Patient additionally complains of nausea and vomiting which she says is baseline for her. Patient vital signs stable, afebrile. Physical exam displayed: Abdomen soft and mildly distended. Abdomen mildly tender to palpation in suprapubic and RLQ. Bowel sounds active in LLQ. No hepatosplenomegaly. No ecchymosis. Laboratory investigations noncompressive. The abdomen pelvis displayed fluid-filled small bowel loops, correlate for enteritis. Underlying emphysema. Patient was discharged, will follow up with oncologist and primary care provider for further evaluation. Case discussed with Dr. Reid. - Lab Data Result diagrams: 11/29/18 19:16 11/29/18 19:16 Lab Results 11/29/18 11/29/18 11/29/18 Range/Units 19:16 19:16 20:01 WBC 9.6 (3.8-10.6) k/uL RBC 4.51 (3.80-5.40) m/uL Hgb 14.6 (11.4-16.0) gm/dL Hct 44.2 (34.0-46.0) % MCV 98.0 (80.0-100.0) fL MCH 32.4 (25.0-35.0) pg MCHC 33.0 (31.0-37.0) g/dL RDW 13.5 (11.5-15.5) % Plt Count 349 (150-450) k/uL Neutrophils % 62 % Lymphocytes % 28 % Monocytes % 4 % Eosinophils % 3 % Basophils % 0 % Neutrophils # 6.0 (1.3-7.7) k/uL Lymphocytes # 2.7 (1.0-4.8) k/uL Monocytes # 0.4 (0-1.0) k/uL Eosinophils # 0.3 (0-0.7) k/uL Basophils # 0.0 (0-0.2) k/uL Sodium 142 (137-145) mmol/L Potassium 3.7 (3.5-5.1) mmol/L Chloride 106 (98-107) mmol/L Carbon Dioxide 26 (22-30) mmol/L Anion Gap 10 mmol/L BUN 12 (7-17) mg/dL Creatinine 0.77 (0.52-1.04) mg/dL Est GFR (CKD-EPI)AfAm >90 (>60 ml/min/1.73 sqM) Est GFR (CKD-EPI)NonAf >90 (>60 ml/min/1.73 sqM) Glucose 108 H (74-99) mg/dL Calcium 9.4 (8.4-10.2) mg/dL Total Bilirubin <0.1 L (0.2-1.3) mg/dL AST 25 (14-36) U/L ALT 25 (9-52) U/L Alkaline Phosphatase 70 (38-126) U/L Total Protein 7.6 (6.3-8.2) g/dL Albumin 4.5 (3.5-5.0) g/dL Lipase 45 (23-300) U/L Urine Color Urine Appearance (Clear) Urine pH (5.0-8.0) Ur Specific [place] (1.001-1.035) Urine Protein (Negative) Urine Glucose (UA) (Negative) Urine Ketones (Negative) Urine Blood (Negative) Urine Nitrite (Negative) Urine Bilirubin (Negative) Urine Urobilinogen (<2.0) mg/dL Ur Leukocyte Esterase (Negative) Urine RBC (0-5) /hpf Urine WBC (0-5) /hpf Ur Squamous Epith Cells (0-4) /hpf Urine Bacteria (None) /hpf Urine Mucus (None) /hpf Urine HCG, Qual Not Detected (Not Detectd) 11/29/18 Range/Units 20:01 WBC (3.8-10.6) k/uL RBC (3.80-5.40) m/uL Hgb (11.4-16.0) gm/dL Hct (34.0-46.0) % MCV (80.0-100.0) fL MCH (25.0-35.0) pg MCHC (31.0-37.0) g/dL RDW (11.5-15.5) % Plt Count (150-450) k/uL Neutrophils % % Lymphocytes % % Monocytes % % Eosinophils % % Basophils % % Neutrophils # (1.3-7.7) k/uL Lymphocytes # (1.0-4.8) k/uL Monocytes # (0-1.0) k/uL Eosinophils # (0-0.7) k/uL Basophils # (0-0.2) k/uL Sodium (137-145) mmol/L Potassium (3.5-5.1) mmol/L Chloride (98-107) mmol/L Carbon Dioxide (22-30) mmol/L Anion Gap mmol/L BUN (7-17) mg/dL Creatinine (0.52-1.04) mg/dL Est GFR (CKD-EPI)AfAm (>60 ml/min/1.73 sqM) Est GFR (CKD-EPI)NonAf (>60 ml/min/1.73 sqM) Glucose (74-99) mg/dL Calcium (8.4-10.2) mg/dL Total Bilirubin (0.2-1.3) mg/dL AST (14-36) U/L ALT (9-52) U/L Alkaline Phosphatase (38-126) U/L Total Protein (6.3-8.2) g/dL Albumin (3.5-5.0) g/dL Lipase (23-300) U/L Urine Color Yellow Urine Appearance Clear (Clear) Urine pH 7.0 (5.0-8.0) Ur Specific [place] 1.014 (1.001-1.035) Urine Protein Negative (Negative) Urine Glucose (UA) Negative (Negative) Urine Ketones Negative (Negative) Urine Blood Negative (Negative) Urine Nitrite Positive H (Negative) Urine Bilirubin Negative (Negative) Urine Urobilinogen <2.0 (<2.0) mg/dL Ur Leukocyte Esterase Trace H (Negative) Urine RBC 1 (0-5) /hpf Urine WBC 3 (0-5) /hpf Ur Squamous Epith Cells 1 (0-4) /hpf Urine Bacteria Occasional H (None) /hpf Urine Mucus Rare H (None) /hpf Urine HCG, Qual (Not Detectd) Disposition Clinical Impression: Abdominal pain Disposition: HOME SELF-CARE Condition: Stable Instructions (If sedation given, give patient instructions): Abdominal Pain (ED) Additional Instructions: Patient to adhere to previously discussed treatment plan and will take medication(s) as directed. Patient to follow up with PCP in 1-2 days. Patient to return to ED if symptoms do not improve. Follow-up with primary care provider and oncologist. Return to ER if condition worsens. Is patient prescribed a controlled substance at d/c from ED?: No Referrals: Bryan Caputo MD [Primary Care Provider] - 1-2 days
[2018-11-29 20:23] LABS: Appearance,Urine Clear (Clear); Bacteria,Urine Occasional /hpf; Bilirubin,Urine Negative (Negative); Blood,Urine Negative (Negative); Color,Urine Yellow; Glucose,Urine (UA) Negative (Negative); Ketones,Urine Negative (Negative); Leukocyte Esterase,Urine Trace (Negative); Mucus,Urine Rare /hpf; Nitrite,Urine Positive (Negative); Protein,Urine Negative (Negative); RBC,Urine 1 /hpf (0-5); Specific Gravity,Urine 1.014 (1.001-1.035); Squamous Epithelial Cell,Urine 1 /hpf (0-4); Urobilinogen,Urine <2.0 mg/dL (<2.0); WBC,Urine 3 /hpf (0-5)
[2018-11-29] MEDS ORDERED: HYDROcodone/APAP 10-325MG 1 EACH TAB PO ONE (20:35)
--- NOTE | 2018-11-29 21:04 | CT ---
EXAMINATION TYPE: CT abdomen pelvis w con DATE OF EXAM: 11/29/2018 COMPARISON: Head CT 11/18/2016 HISTORY: 43-year-old female Lower abdominal pain and distention. TECHNIQUE: Contiguous axial scanning of the abdomen and pelvis following administration of 100 ml Iso [place] 300 IV contrast. Delayed images through the kidneys and coronal/sagittal reconstructions perform ed. CT DLP: 743.8 mGycm Automated exposure control for dose reduction was used. FINDINGS: Heart normal size without pericardial effusion. [place] scarring at the right base. Underlying emphys ematous change. No pleural effusion. No focal liver lesion or biliary ductal dilatation. Portal venous system is patent. Gallbladder, adrenal glands, kidneys, spleen, and pancreas appear within normal limits. No dilated small bowel, free fluid, or free air. However, there are prominent fluid-filled small fannie l loops in the mid and lower abdomen. Suspect visualization of segments of normal air filled appendix. Scattered mild stool burden. No [place] colonic inflammatory change. No mesenteric or retroperitoneal lymphadenopathy. Bladder is urine distended. Uterus anteverted. Both ovaries are visualized. No abnormal fluid collect ion in the pelvis or pelvic lymphadenopathy. Bones: Degenerative disc disease L5-S1. Facet arthropathy lower lumbar spine. IMPRESSION: 1. PROMINENT FLUID-FILLED SMALL BOWEL LOOPS IN THE MID AND LOWER ABDOMEN. CORRELATE FOR ENTERITIS. 2. UNDERLYING EMPHYSEMA SEEN AT THE LUNG BASES.
[2018-11-29 21:46] VITALS: BP 109/88; PULSE 81; TEMP 98.4
== END 2018-11-29 21:44 | disposition home or self-care (01) ==
LOC: EC 18:55
DX: R10.31 Right lower quadrant pain (principal); R14.0 Abdominal distension (gaseous); J43.9 Emphysema, unspecified; R11.2 Nausea with vomiting, unspecified; M06.9 Rheumatoid arthritis, unspecified; G89.29 Other chronic pain; Z87.891 Personal history of nicotine dependence; Z88.0 Allergy status to penicillin; Z79.82 Long term (current) use of aspirin; Z79.899 Other long term (current) drug therapy; Z85.118 Personal history of other malignant neoplasm of bronchus and lung; Z90.2 Acquired absence of lung [part of]
CPT/HCPCS: 36415; 80053; 83690; 85025; 81001; 81025; 74177; 99284; 96360; 96361 ×3; Q9967

== ENCOUNTER → 2018-12-23 | Outpatient (CLI) | payer OTHER ==
--- NOTE | 2018-12-23 12:11 | MR ---
EXAMINATION TYPE: MR brain wo/w con DATE OF EXAM: 12/23/2018 COMPARISON: Prior brain MR 11/18/2016 HISTORY: Headache, mets, lung ca TECHNIQUE: Multiplanar, multisequence images of the brain and brainstem is performed without and with IV contras t, utilizing 7 mL intravenous Gadavist . FINDINGS: There is motion artifact on the exam. Diffusion weighted images demonstrate no evidence of a recent infarct or other diffusion abnormality. There is no extra-axial fluid collection or significant change in white matter signal abnormality. The ventricular system and cisternal spaces are normal in size and appearance. The brain volume is age appropriate. Midline structures demonstrate normal morphology. The craniocervical junction appears within normal limits. Post contrast images demonstrate no abnormal enhancement. The dural venous sinuses appear pa tent. The visualized sinuses are similar in appearance, extensive inflammatory change present in the right maxillary sinus, ethmoid air cells, right frontal sinus, sphenoid also shows inflammatory baptiste e and the globes are intact. IMPRESSION: Extensive sinus disease. Stable brain MRI.
== END | disposition home or self-care (01) ==
LOC: RADMRIMAIN 08:00
PROVIDERS: ATTEND Internal Medicine Hematology & Oncology
DX: R51 Headache (principal); C34.11 Malignant neoplasm of upper lobe, right bronchus or lung
CPT/HCPCS: 70553; A9585

== ENCOUNTER → 2019-08-28 | Outpatient (CLI) | payer OTHER ==
--- NOTE | 2019-08-28 13:38 | XR ---
EXAMINATION TYPE: XR chest 2V DATE OF EXAM: 08/28/2019 COMPARISON: 01/23/2018 HISTORY: Right-sided chest pain and shortness of breath after lung surgery in December. Right upper lo be removed. TECHNIQUE: Frontal and lateral views of the chest are obtained. FINDINGS: Surgical sutures are seen in the peripheral right midlung. Scarring is noted at the right lung base. No significant right hemithorax volume loss status post right upper lobectomy. No new foca l consolidation, pleural effusion or pneumothorax seen. Minimal degenerative change of the spine. IMPRESSION: Postsurgical changes of the right lung. No acute cardiopulmonary process.
== END | disposition home or self-care (01) ==
LOC: RADXRMAIN 13:04
PROVIDERS: ATTEND Family Medicine
DX: J43.9 Emphysema, unspecified (principal); Z90.2 Acquired absence of lung [part of]
CPT/HCPCS: 71046

== ENCOUNTER 2020-12-08 15:02 | Emergency (ER) | payer OTHER ==
[2020-12-08 16:12] LABS: Basophils % (A) 0 %; Eosinophils # (A) 0.3 k/uL (0-0.7); Eosinophils % (A) 4 %; HCT 43.2 % (34.0-46.0); HGB 14.4 gm/dL (11.4-16.0); Lymphocytes # (A) 2.3 k/uL (1.0-4.8); Lymphocytes % (A) 27 %; MCH 32.1 pg (25.0-35.0); MCHC 33.3 g/dL (31.0-37.0); MCV 96.5 fL (80.0-100.0); Mean Platelet Volume 6.8; Monocytes # (A) 0.4 k/uL (0-1.0); Monocytes % (A) 5 %; Neutrophils # (A) 5.2 k/uL (1.3-7.7); Neutrophils % (A) 62 %; Platelet Count 293 k/uL (150-450); RBC 4.48 m/uL (3.80-5.40); RDW 13.9 % (11.5-15.5); WBC 8.3 k/uL (3.8-10.6)
--- NOTE | 2020-12-08 16:19 | ED ---
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 Patient describes weakness in her right lower extremity and right upper extremity. She states that last night when she went about approximate 10 or 11 PM, she was normal. She denies any history of strokes but there is a family history of strokes. She is not on blood thinners. She denies any trauma. She initially went her PCP earlier today who instructed her to come to the emergency department for evaluation. This appointment was at 11:30. I evaluated the patient when she arrived and was placed in a room, approximately 1530. Last known Well as described above was last night. She is no other acute complaints at this time he denies any sensory deficits, dizzine ss, lightheadedness. She does have a history of chronic migraines on triptan. She denies any chest pain or shortness breath, abdominal pain, nausea, vomiting. She is not acute complaints at this time. She is not on blood thinners, hormonal therapy, control, and has no IUD in place. - Related Data Home Medications Medication Instructions Recorded Confirmed ALPRAZolam [Xanax] 1 mg PO Q8H PRN 11/02/16 12/08/20 HYDROcodone/APAP 10-325MG [Sherman 1 tab PO Q6H PRN 11/02/16 12/08/20 10-325] QUEtiapine FUMARATE [SEROquel XR] 150 mg PO HS 11/02/16 12/08/20 traMADol HCL [Ultram] 1 mg PO Q6H PRN 11/02/16 12/08/20 SUMAtriptan succinate [Imitrex] 50 mg PO BID PRN 01/25/17 12/08/20 Albuterol Nebulized [Ventolin 2.5 mg INHALATION RT-Q6H PRN 04/03/17 12/08/20 Nebulized] Cyclobenzaprine [Flexeril] 10 mg PO TID 04/03/17 12/08/20 Aspirin 325 mg PO DAILY 06/18/17 12/08/20 EPINEPHrine [Epipen 2-Danny] 0.3 mg IM ONCE PRN 01/23/18 12/08/20 Lidocaine 4% Cream [Lmx 4] 1 applic TOPICAL QID PRN 01/23/18 12/08/20 Loratadine [Claritin] 10 mg PO DAILY 01/23/18 12/08/20 Albuterol Sulfate [Proair Hfa] 1 - 2 puff INHALATION RT-Q6H PRN 12/08/20 12/08/20 Cyanocobalamin [Vitamin B-12 1,000 mcg SQ QMONTHLY 12/08/20 12/08/20 Injection] Docusate [Colace] 100 mg PO DAILY 12/08/20 12/08/20 Famotidine 20 mg PO BID 12/08/20 12/08/20 Folic Acid 1 mg PO DAILY 12/08/20 12/08/20 Gabapentin [Neurontin] 400 mg PO TID 12/08/20 12/08/20 Prochlorperazine [Compazine] 10 mg PO Q8H PRN 12/08/20 12/08/20 buPROPion SR [Wellbutrin SR] 100 mg PO DAILY 12/08/20 12/08/20 ondansetron HCL [Zofran] 8 mg PO Q8HR PRN 12/08/20 12/08/20 Previous Rx's Medication Instructions Recorded Aspirin 325 mg PO DAILY #30 tab 12/08/20 Clopidogrel [Plavix] 75 mg PO DAILY #30 tablet 12/08/20 Ticagrelor [Brilinta] 90 mg PO BID 30 Days #60 tablet 12/08/20 Allergies Allergy/AdvReac Type Severity Reaction Status Date / Time Penicillins Allergy Rash/Hives Verified 12/08/20 16:41 Review of Systems ROS Statement: Those systems with pertinent positive or pertinent negative responses have been documented in the HPI. Review of Systems: CONST: Denies fever EYES: Denies blurry vision ENT: Denies nasal congestion C/V: Denies Chest pain RESP: Denies shortness of breath GI: Denies abdominal pain : Denies dysuria SKIN: Denies rash. MSK: Denies joint pain. NEURO: Endorses right upper extremity and right lower extremity weakness. ROS Other: All systems not noted in ROS Statement are negative. Past Medical History Past Medical History: Asthma, Cancer, Rheumatoid Arthritis (RA) Additional Past Medical History / Comment(s): emphysema,chronic back and neck pain, Lung Cancer History of Any Multi-Drug Resistant Organisms: None Reported Past Surgical History: Back Surgery, Breast Surgery Additional Past Surgical History / Comment(s): fibrotic tumor -breast removed,right upper lobectomy Past Anesthesia/Blood Transfusion Reactions: No Reported Reaction Additional Past Anesthesia/Blood Transfusion Reaction / Comment(s): calusterphobia Past Psychological History: No Psychological Hx Reported Smoking Status: Current every day smoker Past Alcohol Use History: Rare Past Drug Use History: None Reported - Past Family History Mother Family Medical History: Blood Disorder Additional Family Medical History / Comment(s): factor V leiden Father Additional Family Medical History / Comment(s): from complications of mrsa infection General Exam - General Exam Comments Initial Comments: General: Appears in no acute distress. HEAD: Normal with no signs of head trauma. EYES: PERRLA, EOMI, conjunctiva normal, no discharge. Pupils are 3 mm and equal bilaterally. ENT: Hearing grossly intact, normal oropharynx. RESPIRATORY: Clear breath sounds bilaterally. No wheezes, rales, or rhonchi. C/V: Regular rate and rhythm. S1 and S2 auscultated, no edema, peripheral pulses 2+ and intact throughout ABD: Abd is soft, nontender, nondistended EXT: Normal range of motion, no obvious deformity SKIN: No rashes or lesions observed on exposed skin. NEURO: Alert and oriented 4. Cranial nerves II through XII are intact. NIH stroke scale is 2, 1 point each for drift of the right upper and right lower extremities. GCS is 15. Limitations: no limitations Course Vital Signs 12/08/20 12/08/20 15:23 16:59 Temperature 98.3 F 98.4 F Pulse Rate 93 77 Respiratory 18 16 Rate Blood Pressure 103/67 103/65 O2 Sat by Pulse 96 100 Oximetry Medical Decision Making - Medical Decision Making Based on the patient's presentation and physical exam, I believe that there is concern for an acute CVA at this time. Patient awake upstroke is less than well was last night. She may still be in the window for a thrombectomy at this point. Therefore stroke pager was activated. CT head and angiogram were ordered in addition to stroke laboratory studies and EKG. She'll be connected to continuous residential monitor while she is here in the department. POC blood sugar was within normal limits. Patient was in agreement this plan. CT imaging revealed no signs of acute intercurrent process. There was concern for hyperdensity of the right MCA however's is not in-line with the patient's symptoms. I did discuss this with both a neurologist and the radiologist and both agreed this is likely artifact. CT angiogram showed no stenosis or blockage. Patient's laboratory studies are remarkable for a negative troponin. Remainder of her labs are unremarkable. Patient's chest x-ray shows no acute cardiopulmonary process. Patient's EKG shows a normal sinus rhythm without any signs of acute ischemia. On reevaluation, patient's right upper extremity weakness is somewhat improved at this time, however she has persistent right lower extremity weakness. NIH still 1-2. I discussed with her the results of her imaging. I spoke to her that I would like to admitted to the hospital. She was not in agreement this plan. She states she is a dog at home that she is concerned about. She would like to leave [facility]. I also spoke with the interventional neurologist over the phone, Dr. Perez who reviewed the imaging and recommended that we start the patient on aspirin, Brili nta, Plavix. He also recommended strongly that the patient be admitted to the hospital, particularly with her history of factor V leiden. I once again spoke with the patient regarding this. She continues to insist that she must leave to take care of her dog and does not want to stay in the hospital. She is of sound mind and can make her own decisions at this point. The patient was apprised of the potential risks of leaving the hospital AGAINST MEDICAL ADVICE, including serious complications, permanent disability, and . At the time of my interview the patient, the patient was alert, oriented, and capable. Patient signed AMA form, which was witnessed and signed by nursing staff, and placed in patient's chart. I urged the patient to return to the hospital as soon as possible to complete evaluation and treatment. Prior to the patient leaving [facility], she'll be given a dose of Brilinta, aspirin, Plavix as well as a prescription. I strongly advised that she return to the emergency department as soon as possible to be admitted to the hospital for monitoring and an MRI. She inform me she will attempt to return tonight. She was in agreement this plan. Patient therefore left AGAINST MEDICAL ADVICE in serious condition. - Lab Data Result diagrams: 12/08/20 16:05 12/08/20 16:05 Lab Results 12/08/20 12/08/20 12/08/20 Range/Units 16:05 16:05 16:05 WBC 8.3 (3.8-10.6) k/uL RBC 4.48 (3.80-5.40) m/uL Hgb 14.4 (11.4-16.0) gm/dL Hct 43.2 (34.0-46.0) % MCV 96.5 (80.0-100.0) fL MCH 32.1 (25.0-35.0) pg MCHC 33.3 (31.0-37.0) g/dL RDW 13.9 (11.5-15.5) % Plt Count 293 (150-450) k/uL MPV 6.8 Neutrophils % 62 % Lymphocytes % 27 % Monocytes % 5 % Eosinophils % 4 % Basophils % 0 % Neutrophils # 5.2 (1.3-7.7) k/uL Lymphocytes # 2.3 (1.0-4.8) k/uL Monocytes # 0.4 (0-1.0) k/uL Eosinophils # 0.3 (0-0.7) k/uL Basophils # 0.0 (0-0.2) k/uL PT 9.6 (9.0-12.0) sec INR 0.9 (<1.2) APTT 21.6 L (22.0-30.0) sec Sodium (137-145) mmol/L Potassium (3.5-5.1) mmol/L Chloride (98-107) mmol/L Carbon Dioxide (22-30) mmol/L Anion Gap mmol/L BUN (7-17) mg/dL Creatinine (0.52-1.04) mg/dL Est GFR (CKD-EPI)AfAm (>60 ml/min/1.73 sqM) Est GFR (CKD-EPI)NonAf (>60 ml/min/1.73 sqM) Glucose (74-99) mg/dL Calcium (8.4-10.2) mg/dL Total Bilirubin (0.2-1.3) mg/dL AST (14-36) U/L ALT (4-34) U/L Alkaline Phosphatase (38-126) U/L Troponin I (0.000-0.034) ng/mL Total Protein (6.3-8.2) g/dL Albumin (3.5-5.0) g/dL HCG, Quant mIU/mL Urine Color Yellow Urine Appearance Clear (Clear) Urine pH 6.0 (5.0-8.0) Ur Specific [place] 1.050 H (1.001-1.035) Urine Protein Negative (Negative) Urine Glucose (UA) Negative (Negative) Urine Ketones Negative (Negative) Urine Blood Negative (Negative) Urine Nitrite Negative (Negative) Urine Bilirubin Negative (Negative) Urine Urobilinogen <2.0 (<2.0) mg/dL Ur Leukocyte Esterase Moderate H (Negative) Urine RBC 2 (0-5) /hpf Urine WBC 4 (0-5) /hpf Ur Squamous Epith Cells 4 (0-4) /hpf Urine Mucus Rare H (None) /hpf 12/08/20 12/08/20 Range/Units 16:05 16:05 WBC (3.8-10.6) k/uL RBC (3.80-5.40) m/uL Hgb (11.4-16.0) gm/dL Hct (34.0-46.0) % MCV (80.0-100.0) fL MCH (25.0-35.0) pg MCHC (31.0-37.0) g/dL RDW (11.5-15.5) % Plt Count (150-450) k/uL MPV Neutrophils % % Lymphocytes % % Monocytes % % Eosinophils % % Basophils % % Neutrophils # (1.3-7.7) k/uL Lymphocytes # (1.0-4.8) k/uL Monocytes # (0-1.0) k/uL Eosinophils # (0-0.7) k/uL Basophils # (0-0.2) k/uL PT (9.0-12.0) sec INR (<1.2) APTT (22.0-30.0) sec Sodium 138 (137-145) mmol/L Potassium 4.3 (3.5-5.1) mmol/L Chloride 104 (98-107) mmol/L Carbon Dioxide 29 (22-30) mmol/L Anion Gap 5 mmol/L BUN 15 (7-17) mg/dL Creatinine 0.71 (0.52-1.04) mg/dL Est GFR (CKD-EPI)AfAm >90 (>60 ml/min/1.73 sqM) Est GFR (CKD-EPI)NonAf >90 (>60 ml/min/1.73 sqM) Glucose 99 (74-99) mg/dL Calcium 9.0 (8.4-10.2) mg/dL Total Bilirubin 0.2 (0.2-1.3) mg/dL AST 23 (14-36) U/L ALT 15 (4-34) U/L Alkaline Phosphatase 56 (38-126) U/L Troponin I <0.012 (0.000-0.034) ng/mL Total Protein 5.6 L (6.3-8.2) g/dL Albumin 3.3 L (3.5-5.0) g/dL HCG, Quant 3.5 mIU/mL Urine Color Urine Appearance (Clear) Urine pH (5.0-8.0) Ur Specific [place] (1.001-1.035) Urine Protein (Negative) Urine Glucose (UA) (Negative) Urine Ketones (Negative) Urine Blood (Negative) Urine Nitrite (Negative) Urine Bilirubin (Negative) Urine Urobilinogen (<2.0) mg/dL Ur Leukocyte Esterase (Negative) Urine RBC (0-5) /hpf Urine WBC (0-5) /hpf Ur Squamous Epith Cells (0-4) /hpf Urine Mucus (None) /hpf - EKG Data -: EKG Interpreted by Me EKG Comments: 12-lead Electrocardiogram Interpretation Note EKG was reviewed and interpreted by myself. 12-lead ECG performed at 1641 is interpreted by me as revealing normal sinus rhythm at a rate of 65 beats per minute. [place] is normal. ID interval is 120 ms, QRS duration is 82 ms, QTc is 411 ms.. There were no ST or T wave abnormalities to suggest myocardial ischemia or injury. R wave progression across the precordium was satisfactory. By my interpretation this EKG is non-diagnostic for acute ischemia. Disposition Clinical Impression: CVA (cerebral vascular accident), Left against medical advice, Factor V Leiden Disposition: Left Against Medical Advice Condition: Serious Prescriptions: Aspirin 325 mg PO DAILY #30 tab Ticagrelor [Brilinta] 90 mg PO BID 30 Days #60 tablet Clopidogrel [Plavix] 75 mg PO DAILY #30 tablet Is patient prescribed a controlled substance at d/c from ED?: No Referrals: Bryan Caputo MD [Primary Care Provider] - 1-2 days
[2020-12-08 16:22] LABS: ALT 15 U/L (4-34); AST 23 U/L (14-36); African American GFR (CKD) >90 (>60 ml/min/1.73 sqM); Albumin 3.3 g/dL (3.5-5.0); Alkaline Phosphatase 56 U/L (38-126); Anion Gap 5 mmol/L; Blood Urea Nitrogen 15 mg/dL (7-17); Carbon Dioxide 29 mmol/L (22-30); Chloride 104 mmol/L (98-107); Glucose 99 mg/dL (74-99); Non-African American GFR(CKD) >90 (>60 ml/min/1.73 sqM); Potassium 4.3 mmol/L (3.5-5.1); Sodium 138 mmol/L (137-145); Total Bilirubin 0.2 mg/dL (0.2-1.3); Total Protein 5.6 g/dL (6.3-8.2)
--- NOTE | 2020-12-08 16:23 | CT ---
EXAMINATION TYPE: CT brain wo con for TPA DATE OF EXAM: 12/08/2020 COMPARISON: None INDICATION: Right sided weakness and drop foot. DLP: 1085.8 mGycm, Automated exposure control for dose reduction was used. CONTRAST: None CT of the brain is performed utilizing 3 mm thick sections through the posterior fossa and 3 mm thick sections through the remaining calvarium. Study is performed within 24 hours of arrival to the hosp ital. No abnormal hyperdensity is present to suggest an acute intracranial hemorrhage. There is a somewhat dense right middle cerebral artery. This appears greater density in the left midd le cerebral artery. Correlate for right MCA findings. Report was called to the emergency room by Dr. Olvera by telephone at the time of interpretation 1617 hours 12/08/2020. Patient Symptoms were confirm ed as right-sided which would suggest left side etiology. This finding is likely artifact related to CSF surrounding the vessel. No additional suspicious findings No mass lesion is evident. No acute infarcts are evident. Ventricles and sulci are appropriate for the patient age. There is opacification of the right maxillary sinus with some extension into the nasal passage. Ethmo id air cell opacification is present on the right. Correlate for polyposis. Mucous retention cyst cou ld be considered. No definite expansion or erosion is identified there may be some chronic thickening of the right maxillary wall. IMPRESSIONS: 1. The right MCA appears more dense than the left. Symptomatology however would suggest left side e tiology. Case was discussed with the emergency room physician. 2. Right maxillary sinus opacification with some opacification of the nasal passage and ethmoid air c ells.
[2020-12-08 16:29] LABS: INR 0.9 (<1.2); Prothrombin Time 9.6 sec (9.0-12.0)
--- NOTE | 2020-12-08 16:31 | CT ---
EXAMINATION TYPE: CT angio head neck DATE OF EXAM: 12/08/2020 HISTORY: Right sided weakness and drop foot. COMPARISON: None CT DLP: 470.6 mGycm. Automated Exposure Control for Dose Reduction was Utilized. TECHNIQUE: CTA scan of the neck is performed with IV Contrast, patient injected with 65 mL of Isovue 370, axial images are obtained, coronal and sagittal reformatted images are reviewed. Three-D recons tructed images are created on an independent workstation and reviewed. Source images are reviewed. FINDINGS: Carotid/Vascular Structures: There is a three-vessel arch. Vertebral arteries are codominant. The rig ht vertebral artery appears to terminate in the PICA. No significant stenosis of the carotid bifurcat ions is evident. Cervical of [place]: Vertebral basilar system appears normal. Posterior cerebral vasculature is unrema rkable. Right internal carotid artery caliber is slightly larger than the left. Right internal caroti d artery bifurcates into A1 and M1 segments. Left internal carotid artery appears to terminate in the left middle cerebral artery. The left A1 segment is not identified. A2 segments are normal. The ante rior communicating artery is patent. Left Posterior communicating artery is absent. Right posterior c ommunicating artery is patent. Other: No filling defects within the right middle cerebral artery identified. IMPRESSION: 1. No flow-limiting stenosis bilateral carotid bifurcations. 2. Normal [place] of [place]. Variations are discussed above NASCET criteria was used in interpretation of this exam?
[2020-12-08 16:38] LABS: HCG,Quantitative Serum 3.5 mIU/mL
[2020-12-08 16:42] LABS: Partial Thromboplastin Time 21.6 sec (22.0-30.0)
[2020-12-08 16:59] VITALS: RESP 16
--- NOTE | 2020-12-08 17:06 | XR ---
EXAMINATION TYPE: XR chest 2V DATE OF EXAM: 12/08/2020 COMPARISON: 08/28/2019. HISTORY: Altered mental status. TECHNIQUE: Frontal and lateral views of the chest are obtained. FINDINGS: There is no focal air space opacity, pleural effusion, or pneumothorax seen. Right upper lung suture seen. The cardiac silhouette size is within normal limits. The osseous structures are i ntact. IMPRESSION: No acute cardiopulmonary process.
[2020-12-08 17:09] LABS: Appearance,Urine Clear (Clear); Bilirubin,Urine Negative (Negative); Blood,Urine Negative (Negative); Color,Urine Yellow; Glucose,Urine (UA) Negative (Negative); Ketones,Urine Negative (Negative); Leukocyte Esterase,Urine Moderate (Negative); Mucus,Urine Rare /hpf; Nitrite,Urine Negative (Negative); Protein,Urine Negative (Negative); RBC,Urine 2 /hpf (0-5); Squamous Epithelial Cell,Urine 4 /hpf (0-4); Urobilinogen,Urine <2.0 mg/dL (<2.0); WBC,Urine 4 /hpf (0-5)
[2020-12-08] MEDS ORDERED: ASPIRIN 325 MG TAB PO STA (17:43)
[2020-12-08] MEDS ORDERED: CLOPIDOGREL 75 MG TAB PO STA ×2 (17:43→17:49)
[2020-12-08] MEDS ORDERED: TICAGRELOR 90 MG TAB PO STA (17:43)
[2020-12-08 18:00] VITALS: BP 101/65; PULSE 74; TEMP 98.2
== END 2020-12-08 17:59 | disposition left against medical advice (07) ==
LOC: EC 15:02
DX: I63.9 Cerebral infarction, unspecified (principal); R29.702 NIHSS score 2; D68.51 Activated protein C resistance; J45.909 Unspecified asthma, uncomplicated; M06.9 Rheumatoid arthritis, unspecified; F17.200 Nicotine dependence, unspecified, uncomplicated; Z53.29 Procedure and treatment not carried out because of patient's decision for other reasons; Z79.82 Long term (current) use of aspirin; Z88.0 Allergy status to penicillin; Z85.118 Personal history of other malignant neoplasm of bronchus and lung
CPT/HCPCS: 99285; 36415; 93005; 80053; 84484; 85025; 85610; 85730; 81001; 84702; 71046; 70496; 70450; 70498; Q9967

== ENCOUNTER 2020-12-16 16:53 | Observation (INO) | payer OTHER ==
--- NOTE | 2020-12-16 18:03 | ED ---
General Adult HPI - General Chief complaint: Neuro Symptoms/Deficit Stated complaint: Stroke Symptoms Time Seen by Provider: 12/16/20 17:37 Source: patient Mode of arrival: wheelchair Limitations: no limitations - History of Present Illness Initial comments: Dictation was produced using [employer] dictation software. please excuse any grammatical, word or spelling errors. Chief Complaint: 45-year-old female presents with worsening lower extremity weakness History of Present Illness: Patient is a 45-year-old female [facility]. She was suppose to be admitted to the hospital for CVA symptoms however left AGAINST MEDICAL ADVICE. She states that the reason for leaving was because she didn't have childcare. She states that today that she does have all of her logistics are denies. She states that last night she started having left lower extremity weakness. Similar to the episode she had about a week ago. Patient called her primary care doctor and she was told to come to the emergency department. States she has some mild squeezing pain to her left lateral chest. Denies shortness of breath. No cough. No numbness to the arms or legs. She sets the chest pain is not severe and rad iating to the back. The ROS documented in this emergency department record has been reviewed and c onfirmed by me. Those systems with pertinent positive or negative responses have been documented in the HPI. All other systems are other negative and/or noncontributory. PHYSICAL EXAM: General Impression: Alert and oriented x3, not in acute distress HEENT: Normocephalic atraumatic, extra-ocular movements intact, pupils equal and reactive to light bilaterally, mucous membranes moist. Cardiovascular: Heart regular rate and rhythm Chest: Able to complete full sentences, no retractions, no tachypnea Abdomen: abdomen soft, non-tender, non-distended, no organomegaly Musculoskeletal: Pulses present and equal in all extremities, no peripheral edema Motor: no focal deficits noted Neurological: CN II-XII grossly intact, NIH 1 Skin: Intact with no visualized rashes Psych: Normal affect and mood ED course: 45-year-old female presents to emergency department for right lower extremity weakness starting last night. Vital signs upon arrival are within acceptable limits. Patient's symptoms began last night. NIH score of 1. Patient not TPA candidate for low score and symptoms onset outside the TPA window. Code stroke not paged. Labs reevaluation unremarkable. Computed tomography scan the head is unremarkable. Patient be admitted per patient admitted to [facility] with neurology on consultation. EKG interpretation: Ventricular rate 88, normal sinus rhythm, NE interval 1:30, QRS 74, QTC 425. No NE prolongation, no QTC prolongation, no ST or T-wave changes noted. Overall, this EKG is unremarkable - Related Data Home Medications Medication Instructions Recorded Confirmed ALPRAZolam [Xanax] 1 mg PO Q8H PRN 11/02/16 12/16/20 HYDROcodone/APAP 10-325MG [[place] 1 tab PO Q6H PRN 11/02/16 12/16/20 10-325] QUEtiapine FUMARATE [SEROquel XR] 150 mg PO HS 11/02/16 12/16/20 traMADol HCL [Ultram] 50 mg PO Q6H PRN 11/02/16 12/16/20 SUMAtriptan succinate [Imitrex] 50 mg PO BID PRN 01/25/17 12/16/20 Albuterol Nebulized [Ventolin 2.5 mg INHALATION RT-Q6H PRN 04/03/17 12/16/20 Nebulized] Cyclobenzaprine [Flexeril] 10 mg PO TID 04/03/17 12/16/20 Aspirin 325 mg PO DAILY 06/18/17 12/16/20 EPINEPHrine [Epipen 2-Danny] 0.3 mg IM ONCE PRN 01/23/18 12/16/20 Lidocaine 4% Cream [Lmx 4] 1 applic TOPICAL QID PRN 01/23/18 12/16/20 Albuterol Sulfate [Proair Hfa] 1 - 2 puff INHALATION RT-Q6H PRN 12/08/20 12/16/20 Cyanocobalamin [Vitamin B-12 1,000 mcg SQ Q30D 12/08/20 12/16/20 Injection] Docusate [Colace] 100 mg PO DAILY 12/08/20 12/16/20 Famotidine 20 mg PO DAILY 12/08/20 12/16/20 Folic Acid 1 mg PO DAILY 12/08/20 12/16/20 Gabapentin [Neurontin] 400 mg PO TID 12/08/20 12/16/20 Prochlorperazine [Compazine] 10 mg PO Q8H PRN 12/08/20 12/16/20 buPROPion SR [Wellbutrin SR] 100 mg PO DAILY 12/08/20 12/16/20 ondansetron HCL [Zofran] 8 mg PO Q8HR PRN 12/08/20 12/16/20 Cetirizine HCl 10 mg PO DAILY 12/16/20 12/16/20 Fluticasone/Salmeterol [Advair 1 puff INHALATION RT-BID 12/16/20 12/16/20 250-50 Diskus] Previous Rx's Medication Instructions Recorded Aspirin 325 mg PO DAILY #30 tab 12/08/20 Clopidogrel [Plavix] 75 mg PO DAILY #30 tablet 12/08/20 Allergies Allergy/AdvReac Type Severity Reaction Status Date / Time Penicillins Allergy Anaphylaxis Verified 12/16/20 18:59 Review of Systems ROS Statement: Those systems with pertinent positive or pertinent negative responses have been documented in the HPI. ROS Other: All systems not noted in ROS Statement are negative. Past Medical History Past Medical History: Asthma, Cancer, Rheumatoid Arthritis (RA) Additional Past Medical History / Comment(s): emphysema,chronic back and neck pain, Lung Cancer History of Any Multi-Drug Resistant Organisms: None Reported Past Surgical History: Back Surgery, Breast Surgery Additional Past Surgical History / Comment(s): fibrotic tumor -breast removed,right upper lobectomy Past Anesthesia/Blood Transfusion Reactions: No Reported Reaction Additional Past Anesthesia/Blood Transfusion Reaction / Comment(s): calusterphobia Past Psychological History: No Psychological Hx Reported Smoking Status: Current every day smoker Past Alcohol Use History: Rare Past Drug Use History: None Reported - Past Family History Mother Family Medical History: Blood Disorder Additional Family Medical History / Comment(s): factor V leiden Father Additional Family Medical History / Comment(s): from complications of mrsa infection General Exam Limitations: no limitations Course Vital Signs 12/16/20 12/16/20 12/16/20 16:55 17:58 18:58 Temperature 97.9 F Pulse Rate 98 Respiratory 18 18 18 Rate Blood Pressure 117/81 O2 Sat by Pulse 98 Oximetry Medical Decision Making - Lab Data Result diagrams: 12/16/20 18:05 12/16/20 18:05 Lab Results 12/16/20 12/16/20 12/16/20 Range/Units 18:05 18:05 18:05 WBC 7.9 (3.8-10.6) k/uL RBC 4.60 (3.80-5.40) m/uL Hgb 15.0 (11.4-16.0) gm/dL Hct 44.6 (34.0-46.0) % MCV 97.0 (80.0-100.0) fL MCH 32.6 (25.0-35.0) pg MCHC 33.6 (31.0-37.0) g/dL RDW 13.5 (11.5-15.5) % Plt Count 328 (150-450) k/uL MPV 7.5 Neutrophils % 57 % Lymphocytes % 33 % Monocytes % 4 % Eosinophils % 5 % Basophils % 1 % Neutrophils # 4.5 (1.3-7.7) k/uL Lymphocytes # 2.6 (1.0-4.8) k/uL Monocytes # 0.3 (0-1.0) k/uL Eosinophils # 0.4 (0-0.7) k/uL Basophils # 0.0 (0-0.2) k/uL PT 9.5 (9.0-12.0) sec INR 0.9 (<1.2) APTT 22.3 (22.0-30.0) sec Sodium 136 L (137-145) mmol/L Potassium 4.2 (3.5-5.1) mmol/L Chloride 105 (98-107) mmol/L Carbon Dioxide 22 (22-30) mmol/L Anion Gap 9 mmol/L BUN 9 (7-17) mg/dL Creatinine 0.54 (0.52-1.04) mg/dL Est GFR (CKD-EPI)AfAm >90 (>60 ml/min/1.73 sqM) Est GFR (CKD-EPI)NonAf >90 (>60 ml/min/1.73 sqM) Glucose 143 H (74-99) mg/dL Calcium 9.0 (8.4-10.2) mg/dL Magnesium 1.7 (1.6-2.3) mg/dL Disposition Clinical Impression: Right leg weakness Disposition: ADMITTED IP TO THIS [facility] Condition: Fair Referrals: Bryan Caputo MD [Primary Care Provider] - 1-2 days
[2020-12-16 18:19] LABS: Basophils % (A) 1 %; Eosinophils # (A) 0.4 k/uL (0-0.7); Eosinophils % (A) 5 %; HCT 44.6 % (34.0-46.0); Lymphocytes # (A) 2.6 k/uL (1.0-4.8); Lymphocytes % (A) 33 %; MCH 32.6 pg (25.0-35.0); MCHC 33.6 g/dL (31.0-37.0); Mean Platelet Volume 7.5; Monocytes # (A) 0.3 k/uL (0-1.0); Monocytes % (A) 4 %; Neutrophils # (A) 4.5 k/uL (1.3-7.7); Neutrophils % (A) 57 %; Platelet Count 328 k/uL (150-450); RDW 13.5 % (11.5-15.5); WBC 7.9 k/uL (3.8-10.6)
[2020-12-16 18:28] LABS: African American GFR (CKD) >90 (>60 ml/min/1.73 sqM); Anion Gap 9 mmol/L; Blood Urea Nitrogen 9 mg/dL (7-17); Carbon Dioxide 22 mmol/L (22-30); Chloride 105 mmol/L (98-107); Glucose 143 mg/dL (74-99); Magnesium 1.7 mg/dL (1.6-2.3); Non-African American GFR(CKD) >90 (>60 ml/min/1.73 sqM); Potassium 4.2 mmol/L (3.5-5.1); Sodium 136 mmol/L (137-145)
[2020-12-16 18:34] LABS: INR 0.9 (<1.2); Partial Thromboplastin Time 22.3 sec (22.0-30.0); Prothrombin Time 9.5 sec (9.0-12.0)
--- NOTE | 2020-12-16 18:35 | CT ---
EXAMINATION: CT brain wo con DATE AND TIME: 12/16/2020 6:23 PM CLINICAL INDICATION: focal neurological deficit TECHNIQUE: Standard departmental protocol DLP: 1078.4 mGy-cm COMPARISON: 12/08/2020 FINDINGS: The calvarium is intact. There is no intracranial hemorrhage. There is no intracranial mass or mass effect. No definite new intra-axial or extra-axial attenuation defect. The paranasal sinuses, middle ear cavities, and mastoid sinus air cells are clear. The orbits are unremarkable. IMPRESSION: NO ACUTE PROCESS.
[2020-12-16] MEDS ORDERED: ASPIRIN 81 MG PO STA (18:39)
[2020-12-16] MEDS ORDERED: NALOXONE 0.4 MG/ML 1 ML VIAL IV PRN (19:24)
[2020-12-17] MEDS: SODIUM CHLORIDE 0.9% 1,000 ML IV SCH ×2 (02:12→20:49)
[2020-12-17] MEDS ORDERED: ALBUTEROL NEBULIZED 2.5 MG/3 ML INHALATION PRN (03:03)
--- NOTE | 2020-12-17 03:20 | P.HPIM ---
History of Present Illness H&P Date: 12/16/20 Chief Complaint: right lower extremity weakness 45 year old female with COPD not on home oxygen patient comes in due to recurrent right lower extremity weakness since last n ight, she was out of the window for TPA, and code stroke was not activated. CT of the brain did not show any acute pathology patient presented about a week ago to the ED , with symptoms suggestive of acute stroke, with right sided weakness, however she left AMA from the ED due to social issues. she claims that she was having some right leg weakness, improving over time with initially some residual right foot dragging, improved significantly over time, she had an MRI of the brain done as outpatient but did not get results yet. however, last night suddenly she felt her right leg weak again , and this morning called her doc and recommended that she goes to the ED for evaluation . denies any other symptoms of headache, changes in hearing, (when asked about vision , she reports some changes recently and she feels her vision blurry , but that improved by buying a prescription glasses) , she denies any sensory deficits. she also feels her right hand is weak , and she has been dropping thi ngs off her hand , but denies any distribution that would be suggestive of carpal tunnel syndrome she also feels that her memory is off. other ferris , denies any chest pain (she had some discomfort earlier on the side of her chest but resolved), she reports history of COPD well controlled, and history of lung cancer and lymphoma s/p lobectomy prior to these two episodes, she denies any prior history of numbness or weakness. Review of Systems Pertinent positives as noted in HPI. All other systems were reviewed and are negative Past Medical History Past Medical History: Asthma, Cancer, Rheumatoid Arthritis (RA) Additional Past Medical History / Comment(s): emphysema,chronic back and neck pa in, Lung Cancer History of Any Multi-Drug Resistant Organisms: None Reported Past Surgical History: Back Surgery, Breast Surgery Additional Past Surgical History / Comment(s): fibrotic tumor -breast removed,right upper lobectomy Past Anesthesia/Blood Transfusion Reactions: No Reported Reaction Additional Past Anesthesia/Blood Transfusion Reaction / Comment(s): waldemar gilmore Past Psychological History: No Psychological Hx Reported Additional Psychological History / Comment(s): lives with her 3 kids in 2 story home that has 4 porch steps and 14 steps to 2nd level bedroom Smoking Status: Current every day smoker Past Alcohol Use History: Rare Additional Past Alcohol Use History / Comment(s): started smoking as a teen, smoked 1/2 ppd. quit in Dec 2016 Past Drug Use History: None Reported - Past Family History Mother Family Medical History: Blood Disorder Additional Family Medical History / Comment(s): factor V leiden Father Additional Family Medical History / Comment(s): from complications of mrsa in fection Medications and Allergies Home Medications Medication Instructions Recorded Confirmed Type ALPRAZolam [Xanax] 1 mg PO Q8H PRN 11/02/16 12/16/20 History HYDROcodone/APAP 10-325MG [[place] 1 tab PO Q6H PRN 11/02/16 12/16/20 History 10-325] QUEtiapine FUMARATE [SEROquel XR] 150 mg PO HS 11/02/16 12/16/20 History traMADol HCL [Ultram] 50 mg PO Q6H PRN 11/02/16 12/16/20 History SUMAtriptan succinate [Imitrex] 50 mg PO BID PRN 01/25/17 12/16/20 History Albuterol Nebulized [Ventolin 2.5 mg INHALATION RT-Q6H PRN 04/03/17 12/16/20 History Nebulized] Cyclobenzaprine [Flexeril] 10 mg PO TID 04/03/17 12/16/20 History Aspirin 325 mg PO DAILY 06/18/17 12/16/20 History EPINEPHrine [Epipen 2-Danny] 0.3 mg IM ONCE PRN 01/23/18 12/16/20 History Lidocaine 4% Cream [Lmx 4] 1 applic TOPICAL QID PRN 01/23/18 12/16/20 History Albuterol Sulfate [Proair Hfa] 1 - 2 puff INHALATION RT-Q6H PRN 12/08/20 12/16/20 History Aspirin 325 mg PO DAILY #30 tab 12/08/20 12/16/20 Rx Clopidogrel [Plavix] 75 mg PO DAILY #30 tablet 12/08/20 12/16/20 Rx Cyanocobalamin [Vitamin B-12 1,000 mcg SQ Q30D 12/08/20 12/16/20 History Injection] Docusate [Colace] 100 mg PO DAILY 12/08/20 12/16/20 History Famotidine 20 mg PO DAILY 12/08/20 12/16/20 History Folic Acid 1 mg PO DAILY 12/08/20 12/16/20 History Gabapentin [Neurontin] 400 mg PO TID 12/08/20 12/16/20 History Prochlorperazine [Compazine] 10 mg PO Q8H PRN 12/08/20 12/16/20 History buPROPion SR [Wellbutrin SR] 100 mg PO DAILY 12/08/20 12/16/20 History ondansetron HCL [Zofran] 8 mg PO Q8HR PRN 12/08/20 12/16/20 History Cetirizine HCl 10 mg PO DAILY 12/16/20 12/16/20 History Fluticasone/Salmeterol [Advair 1 puff INHALATION RT-BID 12/16/20 12/16/20 History 250-50 Diskus] Allergies Allergy/AdvReac Type Severity Reaction Status Date / Time Penicillins Allergy Anaphylaxis Verified 12/16/20 18:59 Physical Exam Vitals: Vital Signs Temp Pulse Pulse Resp BP BP Pulse Ox 12/17/20 01:42 98.3 F 78 16 93/57 97 12/17/20 00:35 77 16 12/16/20 20:38 98.4 F 77 16 102/67 97 12/16/20 20:04 74 18 102/59 98 12/16/20 19:33 79 18 90/49 97 12/16/20 18:58 18 12/16/20 17:58 18 12/16/20 16:55 97.9 F 98 18 117/81 98 Intake and Output 12/16/20 12/16/20 12/17/20 14:59 22:59 06:59 Other: # Voids 2 Weight 76.204 kg Constitutional: No acute distress, conversant, pleasant Eyes: Anicteric sclerae, moist conjunctiva, Pupils equal round reactive to light ENMT: NC/AT Oropharynx clear, no erythema, or exudates Neck: Supple, FROM, no masses, or JVD No carotid bruits No thyromegaly Lungs: Clear to auscultation Clear to percussion Normal respiratory effort, no accessory muscle use Cardiovascular: Heart regular in rate and rhythm, No murmurs, gallops, or rubs No peripheral edema Abdominal: Soft Nontender, no guarding, rebound or rigidity Abdomen moving with respiration Normoactive bowel sounds No hepatomegaly, No splenomegaly No palpable mass No abdominal wall hernia noted Skin: Normal temperature, tone, texture, turgor No induration No subcutaneous nodules No rash, lesions No ulcers Extremities: No digital cyanosis No clubbing Pedal pulses intact and symmetrical Radial pulses intact and symmetrical No calf tenderness Psychiatric: Alert and oriented to person, place and time Appropriate affect fair judgement Neuro Muscles Strength 5/5 in bilateral upper and left lower extremity , however right leg is significantly weak, with strength 3/5 . plantar reflex upward on left, and equivocal on right , deep tendon reflex on bilateral knees is brisk and equal Sensation to light touch grossly present throughout Cranial nerves II-XII grossly intact No focal sensory deficits Lymphatics: no palpable cervical or supraclavicular , or inguinal lymph nodes Results CBC & Chem 7: 12/16/20 18:05 12/16/20 18:05 Labs: Abnormal Lab Results - Last 24 Hours (Table) 12/16/20 Range/Units 18:05 Sodium 136 L (137-145) mmol/L Glucose 143 H (74-99) mg/dL Thrombosis Risk Factor Assmnt - Choose All That Apply Any of the Below Risk Factors Present?: Yes Each Factor Represents 1 point: Age 41-60 years, Obesity (BMI >25) Other Risk Factors: No Each Risk Factor Represents 5 Points: Stroke (< 1 month) Thrombosis Risk Factor Assessment Total Risk Factor Score: 7 Thrombosis Risk Factor Assessment Level: High Risk Assessment and Plan Assessment: subacute right leg weakness, rule out stroke ASA, statin , continue plavix neuro checks neuro consult fall precautions check echocardiogram check lipid panel , A1c , tsh check vit D and B 12 monitor vital signs consider brain MRI Brain CT no acute pathology EKG NSR blood work overall unremarkable COPD compensated resume inhalers supplemental oxygen as needed counseled to quit smoking h/o of cancer OP follow up Preformed a thorough record review from recent ER visit , had CT brain and CT angio head and neck CODE STATUS:full code DVT prophylaxis: mechanical Discussed with: Patient, ER Anticipated length of stay < than [address]: home A total of 70 minutes was spent on the care of this complex patient more than 50% of the time was spent in counseling and care coordination.
[2020-12-17] MEDS: SYMBICORT 80-4.5 MCG INHALER INHALATION SCH ×2 (08:01→20:02)
[2020-12-17 09:34] LABS: Chol/HDL Ratio 2.83; LDL Cholesterol,Calculated 57.6 mg/dL (0.0-131.0); VLDL Calculation 26.4 mg/dL (5.00-40.00)
[2020-12-17] MEDS: FAMOTIDINE 20 MG TAB PO SCH (09:59)
[2020-12-17] MEDS: DOCUSATE 100 MG CAP PO SCH (09:59)
[2020-12-17] MEDS: ASPIRIN 325 MG TAB PO SCH (09:59)
[2020-12-17] MEDS: buPROPion SR 100 MG TABLET.ER PO SCH (10:00)
[2020-12-17] MEDS: QUEtiapine 25 MG TAB PO SCH ×2 (10:00→20:47)
[2020-12-17] MEDS: FOLIC ACID 1 MG TAB PO SCH (10:00)
[2020-12-17] MEDS: LORATADINE 10 MG TAB PO SCH (10:00)
[2020-12-17] MEDS: GABAPENTIN 400 MG CAP PO SCH ×3 (10:00→20:47)
[2020-12-17] MEDS: CLOPIDOGREL 75 MG TAB PO SCH (10:00)
--- NOTE | 2020-12-17 11:09 | ECHOF ---
Referral Reason:stroke like symptoms MEASUREMENTS -------- HEIGHT: 165.1 cm WEIGHT: 72.6 kg BP: 93/57 RVIDd: 2.7 cm (< 3.3) IVSd: 1.0 cm (0.6 - 1.1) LVIDd: 5.0 cm (3.9 - 5.3) LVPWd: 1.0 cm (0.6 - 1.1) IVSs: 1.1 cm LVIDs: 3.4 cm LVPWs: 1.1 cm LAESV Index (A-L): 14.74 ml/m Ao Diam: 2.4 cm (2.0 - 3.7) AV Cusp: 1.9 cm (1.5 - 2.6) LA Diam: 3.2 cm (2.7 - 3.8) MV EXCURSION: 18.048 mm (> 18.000) MV EF SLOPE: 89 mm/s (70 - 150) EPSS: 1.3 cm MV E Brock: 0.91 m/s MV DecT: 209 ms MV A Brock: 0.62 m/s MV E/A Ratio: 1.48 RAP: 5.00 mmHg RVSP: 36.66 mmHg FINDINGS -------- Sinus rhythm. This was a technically adequate study. The left ventricular size is normal. Left ventricular wall thickness is normal. Overall left vent ricular systolic function is normal with, an EF between 55 - 60 %. The diastolic filling pattern is normal for the age of the patient 10.52. The right ventricle is normal in size. Normal LA size by volume 22+/-6 ml/m2. The right atrial size is normal. Interatrial and interventricular septum intact. There is no evidence of aortic regurgitation. There is no evidence of aortic stenosis. There is trace mitral regurgitation. Mild tricuspid regurgitation present. There is borderline pulmonary hypertension. The right ventr icular systolic pressure, as measured by Doppler, is 36.66mmHg. There is no pulmonic regurgitation present. The aortic root size is normal. IVC Not well visulized. There is no pericardial effusion. CONCLUSIONS -------- 1. The left ventricular size is normal. 2. Left ventricular wall thickness is normal. 3. Overall left ventricular systolic function is normal with, an EF between 55 - 60 %. 4. The diastolic filling pattern is normal for the age of the patient 10.52 5. There is trace mitral regurgitation. 6. Mild tricuspid regurgitation present. 7. There is borderline pulmonary hypertension. 8. The right ventricular systolic pressure, as measured by Doppler, is 36.66mmHg. PICKLE CUTTER: Awa Napier RDCS
--- NOTE | 2020-12-17 11:36 | P.CNNES ---
History of Present Illness Consult date: 12/17/20 Requesting physician: [place] Saenz Reason for Consult: right lower extremity weakness History of Present Illness: This is a 45-year-old woman with medical history of lung cancer status post right upper lobectomy, COPD who presented emergency department on 12/16/2020 for worsening of her right sided weakness (lower > upper). She stated that about a week ago she noticed that she was having right sided weakness of right lower extremity more than the upper and she presented to the hospital on 12/08/2020 but she left AMA. She said that since that time her weakness has been improving but not to baseline (improved about 75%). But yesterday in the morning she noticed that she could not move her right leg and was worse as well as she dropped her things carrying on the right hand. As a result she called her [facility] doctor and he notified her to come to the emergency department. She stated that she had a recent MRI of the brain over at her primary's office about 2-3 days ago but she does not know the result. She denies of any numbness anywhere, she said that she had blurry vision that been going on for last 1 month. She said that at family member noticed that she's as slurring her speech couple days ago. She denies of any difficulty swallowing. Denies of any you a weakness over the left side. She denies of any neck pain or lower back pain. As stated earlier she denies of any numbness or tingling over the right side. Denies of any urinary or bowel bowel incontinence. Denies of any recent loss of consciousness or being notified that she lost consciousness. Currently she denies of any headache. She stated that she has history of lung cancer and she had the chemotherapy and the last was about more than a year ago. She denies of any radiation therapy. Denies of any history of stroke, TIA or seizure. Some of the patient's home medication consist of aspirin 325 daily, Plavix 75 mg daily, vitamin B12, Flexeril, folic acid, gabapentin 400 mg 1 tablet 3 times a day, Imitrex, Seroquel, Compazine, Zofran, Xanax 1 mg every 8 hours as needed. Of note upon reviewing the patient medical record the patient is attentive to the emergency department on 12/08/2020 for right lower extremity weakness as well as it's reported right upper extremity weakness had CT of the head on 12/08/2020 is reported as right MCA appears more dense than the left. Symptom all G however would suggest left-sided etiology. Case was discussed with the emergency room physician. Right maxillary sinus opacification with some opacification of the nasal passage and ethmoid air cells. CT angiography of the head and neck on the 12/08/2020 is reported as no flow limiting stenosis bilateral carotid bifurcation. Normal [place]. Variation are discussed above. It is noted by the ED attending the she has not TPA since the wake-up stroke. The patient left AMA. Upon speaking with the primary team she notified them that that she had the cervical injury (C4-C5 possibly) and she was getting nerve block by Dr. Da Silva in the past. Some of the workup in the hospital consisted of: Initial vital signs as a blood pressure of 117/81, heart rate of 98, respiratory of 18, temperature of 97.9 Fahrenheit oral and pulse ox of 98% room air. CBC with differential is unremarkable. Chemistry panel seems also unremarkable as well. Lipid panel is the triglyceride 132, cholesterol 1:30, LDL 57 and HDL 46. TSH is 1.320. Nichols virus PCR was not detected CT of the head is reported as no acute process. Of note upon reviewing the patient medical record the patient is attentive to the emergency department on 12/08/2020 for right lower extremity weakness as well as it's reported right upper extremity weakness had CT of the head on 12/08/2020 is reported as right MCA appears more dense than the left. Symptom all G however would suggest left-sided etiology. Case was discussed with the emergency room physician. Right maxillary sinus opacification with some opacification of the nasal passage and ethmoid air cells. CT angiography of the head and neck on the 12/08/2020 is reported as no flow limiting stenosis bilateral carotid bifurcation. Normal [place] Variation are discussed above. It is noted by the ED attending the she has not TPA since the wake-up stroke. The patient left AMA. Review of Systems Review of system: The 12 point system was reviewed and apparent positive and negative per HPI. Past Medical History Past Medical History: Asthma, Cancer, Rheumatoid Arthritis (RA) Additional Past Medical History / Comment(s): emphysema,chronic back and neck pain, Lung Cancer History of Any Multi-Drug Resistant Organisms: None Reported Past Surgical History: Back Surgery, Breast Surgery Additional Past Surgical History / Comment(s): fibrotic tumor -breast removed,right upper lobectomy Past Anesthesia/Blood Transfusion Reactions: No Reported Reaction Additional Past Anesthesia/Blood Transfusion Reaction / Comment(s): calusterphobia Past Psychological History: No Psychological Hx Reported Additional Psychological History / Comment(s): lives with her 3 kids in 2 story home that has 4 porch steps and 14 steps to 2nd level bedroom Smoking Status: Current every day smoker Past Alcohol Use History: Rare Additional Past Alcohol Use History / Comment(s): started smoking as a teen, smoked 1/2 ppd. quit in Dec 2016 Past Drug Use History: None Reported - Past Family History Mother Family Medical History: Blood Disorder Additional Family Medical History / Comment(s): factor V leiden Father Additional Family Medical History / Comment(s): from complications of mrsa infection Medications and Allergies Home Medications Medication Instructions Recorded Confirmed Type ALPRAZolam [Xanax] 1 mg PO Q8H PRN 11/02/16 12/16/20 History HYDROcodone/APAP 10-325MG [[place] 1 tab PO Q6H PRN 11/02/16 12/16/20 History 10-325] QUEtiapine FUMARATE [SEROquel XR] 150 mg PO HS 11/02/16 12/16/20 History traMADol HCL [Ultram] 50 mg PO Q6H PRN 11/02/16 12/16/20 History SUMAtriptan succinate [Imitrex] 50 mg PO BID PRN 01/25/17 12/16/20 History Albuterol Nebulized [Ventolin 2.5 mg INHALATION RT-Q6H PRN 04/03/17 12/16/20 History Nebulized] Cyclobenzaprine [Flexeril] 10 mg PO TID 04/03/17 12/16/20 History Aspirin 325 mg PO DAILY 06/18/17 12/16/20 History EPINEPHrine [Epipen 2-Danny] 0.3 mg IM ONCE PRN 01/23/18 12/16/20 History Lidocaine 4% Cream [Lmx 4] 1 applic TOPICAL QID PRN 01/23/18 12/16/20 History Albuterol Sulfate [Proair Hfa] 1 - 2 puff INHALATION RT-Q6H PRN 12/08/20 12/16/20 History Aspirin 325 mg PO DAILY #30 tab 12/08/20 12/16/20 Rx Clopidogrel [Plavix] 75 mg PO DAILY #30 tablet 12/08/20 12/16/20 Rx Cyanocobalamin [Vitamin B-12 1,000 mcg SQ Q30D 12/08/20 12/16/20 History Injection] Docusate [Colace] 100 mg PO DAILY 12/08/20 12/16/20 History Famotidine 20 mg PO DAILY 12/08/20 12/16/20 History Folic Acid 1 mg PO DAILY 12/08/20 12/16/20 History Gabapentin [Neurontin] 400 mg PO TID 12/08/20 12/16/20 History Prochlorperazine [Compazine] 10 mg PO Q8H PRN 12/08/20 12/16/20 History buPROPion SR [Wellbutrin SR] 100 mg PO DAILY 12/08/20 12/16/20 History ondansetron HCL [Zofran] 8 mg PO Q8HR PRN 12/08/20 12/16/20 History Cetirizine HCl 10 mg PO DAILY 12/16/20 12/16/20 History Fluticasone/Salmeterol [Advair 1 puff INHALATION RT-BID 12/16/20 12/16/20 History 250-50 Diskus] Allergies Allergy/AdvReac Type Severity Reaction Status Date / Time Penicillins Allergy Anaphylaxis Verified 12/16/20 18:59 Physical Examination - Vital Signs Vital Signs: Vital Signs Temp Pulse Pulse Resp BP BP Pulse Ox 12/17/20 07:00 97.9 F 78 18 101/68 97 12/17/20 01:42 98.3 F 78 16 93/57 97 12/17/20 00:35 77 16 12/16/20 20:38 98.4 F 77 16 102/67 97 12/16/20 20:04 74 18 102/59 98 12/16/20 19:33 79 18 90/49 97 12/16/20 18:58 18 12/16/20 17:58 18 12/16/20 16:55 97.9 F 98 18 117/81 98 Intake and Output 12/16/20 12/17/2021 22:59 06:59 14:59 Intake Total 240 Balance 240 Intake: Oral 240 Other: # Voids 2 3 1 # Bowel Movements 0 Weight 76.204 kg GENERAL: The patient is lying in bed and is mild acute distress. CHEST: The heart rate is regular rate rhythm. No murmurs to auscultation. No carotid bruit bilaterally. LUNG: Clear to auscultation bilaterally no wheezing noted throughout. Not labored breathing. ABDOMEN/GI: Bowel sounds present in all 4 quadrants. No tenderness to palpation throughout. NEUROLOGICAL: Higher mental function: The patient is awake, alert, oriented to self, place and time. Patient is following commands. No aphasia and no neglect. Cranial nerves: The pupils are round, equal and reactive to light and accommodation. Visual robbins are full to confrontation throughout. Extraocular movement is intact no nystagmus is noted. Facial sensation is normal to touch throughout. The facial strength is normal throughout. Hearing is normal bilaterally to hand rub. Tongue is midline and moved [id number] without any difficulty. No dysarthria is noted. Shoulder shrug is normal bilaterally. Motor: Gait is deferred since patient could not cooperate. The strength is strength examination on the right side was limited because of the patient's co operation. Upon examining her right upper extremity patient had at least 4 but then the with resistance patient starts having pain over the right upper extremity and she has to stop and she stated that she just has this weird sensation in the medial of the forearm upon asking her to describe that she could not and she was responsive during the episode and answering questions and she asked us to stop with examining the entire right side. She also had antigravity over the right lower extremity but had tremor and was in pain. While the left side was 5 out of 5. Patient has normal bulk throughout. Cerebellum: Normal finger to nose bilaterally. Sensation: Sensation is normal to touch throughout. Reflexes (right/left): Right brachioradialis and triceps are 1+. Otherwise 2+ throughout. Plantars are downgoing bilaterally. Results - Laboratory Findings CBC and BMP: 12/16/20 18:05 12/16/20 18:05 Abnormal Lab Findings: Abnormal Labs 12/16/20 18:05 Sodium 136 L Glucose 143 H Assessment and Plan Assessment: * Subacute right worsening of right sided weakness (lower > upper). Symptoms started about one week ago and worsening. Denies of bladder or bowel issues or paresthesia. (she presented to our ED on 12/08/20 and left AMA. She had recent MRI Brain at her PCP office and unknown result). Unlikely stroke. Seems more localized to cervical region. Rule out any mets especially with history of lung cancer vs significant spondylosis (since has hx and was getting pain injection). * Lung cancer status post right upper lobectomy s/p chemotherapy and last about >1 year ago. * COPD Plan: Please obtain MRI of the brain report that was done recently as an outpatient. I ordered MRI of the cervical as well as the lumbar region with and without. Patient was started on aspirin 325mg daily as well as Plavix 75 daily (home dose). We'll continue the dual antiplatelets for now. Started the patient on Lipitor 20 mg daily at bedtime Ordered TSH. Hemoglobin A1c is ordered by the primary team is pending. Ordered vitamin B12 and folate level. Every 4 hours neuro checks On cardiac monitoring 2-D echo was ordered and is pending Physical therapy is consulted I also consult occupation therapy Recommend orthopedic consultation. We'll defer the rest of the medical management to the primary team. The plan is discussed with the primary team. Thank you for the consultation. Haile Shields M.D. Neuro-hospitalist Time with Patient: Greater than 30
[2020-12-17] MEDS ORDERED: MAGNESIUM OXIDE 400 MG TAB PO STA (15:56)
--- NOTE | 2020-12-17 16:30 | P.PN ---
<Iain Vernon - Last Filed: 12/17/20 15:41> Subjective Progress Note Date: 12/17/20 Hospital course: Patient is a 45-year-old female a past medical history of COPD not on home oxy gen dependent, history of lung cancer status post right upper lobectomy, nicotine dependence, chronic back and neck pain, and rheumatoid arthritis. He presented to the emergency department on 12/16/20 with a chief complaint of right upper and lower extremity weakness. Patient reports this reportedly began on December 08 in which she was seen and evaluated in the ER for concerns of possible CVA however declined admission at that time due to inability to obtain childcare and left AGAINST MEDICAL ADVICE. Patient reports that she did follow up outpatient with her PCP and even underwent an MRI, however the symptoms waxed and waned throughout the past 10 days and began to worsen yesterday evening. She reports she called her PCP whom instructed her to come to the emergency department. Patient was then seen and fully evaluated resulting in admission under our services with consultation to neurology. CT brain was completed negative for acute intercranial process. EKG was completed showing normal sinus rhythm at 88 bpm with no noted T-wave or ST abnormalities. Echocardiogram showing a normally asked 55-60% with borderline pulmonary hypertension. Covid 19 PCR negative. CBC, BMP, and coags all unremarkable. Magnesium slightly low at 1.7. Hemoglobin A1c normal findings at 5.5%. TSH 1.320. And cholesterol profile unremarkable. Physical exam: Upon physical examination this morning, patient reports continued weakness in right upper and lower extremities but denies having any numbness or tingling. Upon assessment patient was noted to have shaking of right lower extremity upon heel to bass assessment when asked patient reports she was shaking due to pain. Upon assessment patient with significant pain right hip radiating laterally down the right lateral thigh and posteriorly. Patient also reports same shooting pain in her right arm. Upon further investigation patient reports history of C4 and C5 injury in which she was requiring steroid injections for nearly a year by Dr. Da Silva. Patient reports her last injection was probably around 4 years ago or so. Sensation and movement of right upper and lower extremities remain fully intact. Orders place at this time for neurosurgery consult. Also discussed with neurology that this is unlikely due to a stroke as patient reports very concerns are weakness accompanied by significant pain. Orders being placed for MRI cervical and lumbar spine. Vital signs reviewed and stable. General: Nontoxic, no distress and appears stated age. Derm: Skin warm and dry, normal coloration for ethnicity. Head: Atraumatic, normocephalic and symmetric. Eyes: EOMs intact, no lid lag, and anicteric sclera Mouth: no lip lesions, mucus membranes moist Cardiovascular: regular rate and rhythm with normal S1S2, no murmur, positive posterior tibial pulses bilaterally, and cap refill < 2 seconds. Lungs: Respirations even, regular, and unlabored on room air. Lungs CTA bilaterally, no rhonchi, no rales, no wheezing, and no accessory muscle usage. Abdominal: soft, nontender to palpation, no guarding, no appreciable organomegaly Ext: Movement and sensation fully intact. No gross muscle atrophy, no edema, no contractures Neuro: Speech clear, face symmetrical and CN II-XII grossly intact. GCS 15. Patient with right upper and right lower extremity weakness accompanied by pain. Patient reports shooting pain down right forearm upon assessment in shooting pains in right buttocks radiating laterally down right lateral hip, right lateral thigh wrapping into posterior thigh and ending in the bend of her knee. Movement and sensation remains intact. Psych: Alert and oriented to person, place, time, and situation. Appropriate and pleasant affect. Assessment and Plan of Care: Right upper and lower extremity weakness -CT brain was completed negative for acute intercranial process. -EKG was completed showing normal sinus rhythm at 88 bpm with no noted T-wave or ST abnormalities. -Echocardiogram showing a normally asked 55-60% with borderline pulmonary hypertension. -Neurology consulted -Neurosurgery consulted -MRI cervical and lumbar spine -Continue aspirin, atorvastatin, and Plavix. -Symptomatic care and pain management. -Continue neuro checks and fall precautions Hypomagnesemia -Magnesium 1.7, replaced. -We will continue to monitor with repeat a.m. labs and replace abnormal electrolyte values as needed. History of COPD not in exacerbation -Continue Symbicort with when necessary albuterol nebulizer treatments as needed for wheezing and/or shortness of breath. -Provide patient with supplemental oxygenation as needed to maintain SpO2 equal to or greater than 90%, patient currently on room air. -Encourage use of incentive spirometry. History of lung cancer status post right upper lobectomy -Continue to follow up outpatient with oncology. Chronic neck and back pain with reported history of C4 and C5 injury -Symptomatic care and pain management -Neuro checks -Consult to neurosurgery CODE STATUS: Full Code DVT prophylaxis: Lovenox Discussed with: Patient and RN Anticipated discharge date: Clinical course to determine Anticipated discharge place: Home A total of 45 minutes was spent on the care of this complex patient more than 50% of the time was spent in counseling and care coordination. Objective - Vital Signs Vital signs: Vital Signs Temp 97.9 F 12/17/20 07:00 Pulse 78 12/17/20 07:00 Resp 18 12/17/20 07:00 BP 101/68 12/17/20 07:00 Pulse Ox 97 12/17/20 07:00 Intake & Output 12/16/20 12/17/20 12/17/20 18:59 06:59 18:59 Weight 76.204 kg 76.204 kg Other: # Voids 3 - Labs CBC & Chem 7: 12/16/20 18:05 12/16/20 18:05 Labs: Abnormal Lab Results - Last 24 Hours (Table) 12/16/20 Range/Units 18:05 Sodium 136 L (137-145) mmol/L Glucose 143 H (74-99) mg/dL <Gely Pena - Last Filed: 12/17/20 17:50> Objective - Vital Signs Vital signs: Vital Signs Temp 98 F 12/17/20 16:16 Pulse 64 12/17/20 16:16 Resp 16 12/17/20 16:16 BP 93/58 12/17/20 16:16 Pulse Ox 99 12/17/20 16:16 Intake & Output 12/16/20 12/17/20 12/17/20 18:59 06:59 18:59 Intake Total 360 Balance 360 Weight 76.204 kg 76.204 kg Intake: Oral 360 Other: # Voids 3 1 # Bowel Movements 0 - Labs CBC & Chem 7: 12/16/20 18:05 12/16/20 18:05 Labs: Abnormal Lab Results - Last 24 Hours (Table) 12/16/20 Range/Units 18:05 Sodium 136 L (137-145) mmol/L Glucose 143 H (74-99) mg/dL Assessment and Plan Assessment: I reviewed the documentation as provided by the FELECIA above, who is the original author of this note. I agree with the documented assessment and plan, with the following changes: None
[2020-12-17] MEDS: ATORVASTATIN 20 MG TAB PO SCH (20:47)
[2020-12-17 22:19] LABS: Folate, Serum 3.8 ng/mL
[2020-12-18] MEDS: QUEtiapine 25 MG TAB PO SCH ×2 (08:13→20:07)
[2020-12-18] MEDS: buPROPion SR 100 MG TABLET.ER PO SCH (08:13)
[2020-12-18] MEDS: LORATADINE 10 MG TAB PO SCH (08:13)
[2020-12-18] MEDS: ENOXAPARIN 40 MG/0.4 ML SYRINGE SQ SCH (08:14)
[2020-12-18] MEDS: FOLIC ACID 1 MG TAB PO SCH (08:14)
[2020-12-18] MEDS: CLOPIDOGREL 75 MG TAB PO SCH (08:14)
[2020-12-18] MEDS: DOCUSATE 100 MG CAP PO SCH (08:14)
[2020-12-18] MEDS: GABAPENTIN 400 MG CAP PO SCH ×3 (08:14→21:21)
[2020-12-18] MEDS: FAMOTIDINE 20 MG TAB PO SCH (08:14)
[2020-12-18] MEDS: ASPIRIN 325 MG TAB PO SCH (08:17)
--- NOTE | 2020-12-18 11:32 | P.CNOR ---
History of Present Illness - [facility] Consult date: 12/18/20 Consult reason: other (Right upper extremity/right lower extremity weakness) History of present illness: Patient is a 45-year-old female who presented to [facility] yesterday with regards to right upper extremity and right lower extremity weakness. Patient was seen in the hospital about a week ago with regards to the same problem. There is concern for an acute CVA, patient did not stay for full workup and did leave AMA. She was started on blood thinners regular hospital stay and was prescribed him to go home with. Patient will return to the hospital yesterday with regards to continuation of the symptoms, the right lower extremity being worse than the right upper extremity. Patient was admitted under internal medicine, neurology has seen the patient our orthopedic team has been consulted also. Patient was evaluated today at bedside, she notes that the right lower extremity is worse than the right upper tissue knee. She states when she stands she can barely support herself with the right lower extremity. She states that the right upper extremity is much improved. She does get numbness and tingling on occasion that starts in the midforearm region and extends down to the fingers, she has dropped multiple things. She notes she feels like a charley horse/pulling sensation in the back of the right thigh that does extend down to her foot. She denies neck or low back pain. Patient states that she does have a history of cardiac, she is a poor historian when it comes to exact dates. She does see Dr. Da Silva in the outpatient setting. She states that she has had previous injections, she cannot remember exactly that was her cervical or lumbar spine. She does take pain medication, this took [place] and tramadol. She also takes Flexeril. Dr. Caputo is her primary care doctor. An MRI was recently done of her brain in the outpatient setting, she is not follow-up for those results time. Neurology has ordered an MRI of the cervical and lumbar spine. Patient denies any loss of bowel or bladder function. She denies any genital or perineal numbness or tingling. She denies any paresthesias currently of the bilateral upper or lower extremities. She denies any headaches, lightheadedness, chest pain or shortness of breath at this time. Review of Systems Constitutional: Reports as per [facility] Past Medical History Past Medical History: Asthma, Cancer, Rheumatoid Arthritis (RA) Additional Past Medical History / Comment(s): emphysema,chronic back and neck pain, Lung Cancer History of Any Multi-Drug Resistant Organisms: None Reported Past Surgical History: Back Surgery, Breast Surgery Additional Past Surgical History / Comment(s): fibrotic tumor -breast removed,right upper lobectomy Past Anesthesia/Blood Transfusion Reactions: No Reported Reaction Additional Past Anesthesia/Blood Transfusion Reaction / Comm: calusterphobia Past Psychological History: No Psychological Hx Reported Additional Psychological History / Comment(s): lives with her 3 kids in 2 story home that has 4 porch steps and 14 steps to 2nd level bedroom Smoking Status: Current every day smoker Past Alcohol Use History: Rare Additional Past Alcohol Use History / Comment(s): started smoking as a teen, smoked 1/2 ppd. quit in Dec 2016 Past Drug Use History: None Reported - Past Family History Mother Family Medical History: Blood Disorder Additional Family Medical History / Comment(s): factor V leiden Father Additional Family Medical History / Comment(s): from complications of mrsa infection Medications and Allergies Home Medications Medication Instructions Recorded Confirmed Type ALPRAZolam [Xanax] 1 mg PO Q8H PRN 11/02/16 12/16/20 History HYDROcodone/APAP 10-325MG [Berlin 1 tab PO Q6H PRN 11/02/16 12/16/20 History 10-325] QUEtiapine FUMARATE [SEROquel XR] 150 mg PO HS 11/02/16 12/16/20 History traMADol HCL [Ultram] 50 mg PO Q6H PRN 11/02/16 12/16/20 History SUMAtriptan succinate [Imitrex] 50 mg PO BID PRN 01/25/17 12/16/20 History Albuterol Nebulized [Ventolin 2.5 mg INHALATION RT-Q6H PRN 04/03/17 12/16/20 History Nebulized] Cyclobenzaprine [Flexeril] 10 mg PO TID 04/03/17 12/16/20 History Aspirin 325 mg PO DAILY 06/18/17 12/16/20 History EPINEPHrine [Epipen 2-Danny] 0.3 mg IM ONCE PRN 01/23/18 12/16/20 History Lidocaine 4% Cream [Lmx 4] 1 applic TOPICAL QID PRN 01/23/18 12/16/20 History Albuterol Sulfate [Proair Hfa] 1 - 2 puff INHALATION RT-Q6H PRN 12/08/20 12/16/20 History Aspirin 325 mg PO DAILY #30 tab 12/08/20 12/16/20 Rx Clopidogrel [Plavix] 75 mg PO DAILY #30 tablet 12/08/20 12/16/20 Rx Cyanocobalamin [Vitamin B-12 1,000 mcg SQ Q30D 12/08/20 12/16/20 History Injection] Docusate [Colace] 100 mg PO DAILY 12/08/20 12/16/20 History Famotidine 20 mg PO DAILY 12/08/20 12/16/20 History Folic Acid 1 mg PO DAILY 12/08/20 12/16/20 History Gabapentin [Neurontin] 400 mg PO TID 12/08/20 12/16/20 History Prochlorperazine [Compazine] 10 mg PO Q8H PRN 12/08/20 12/16/20 History buPROPion SR [Wellbutrin SR] 100 mg PO DAILY 12/08/20 12/16/20 History ondansetron HCL [Zofran] 8 mg PO Q8HR PRN 12/08/20 12/16/20 History Cetirizine HCl 10 mg PO DAILY 12/16/20 12/16/20 History Fluticasone/Salmeterol [Advair 1 puff INHALATION RT-BID 12/16/20 12/16/20 History 250-50 Diskus] Allergies Allergy/AdvReac Type Severity Reaction Status Date / Time Penicillins Allergy Anaphylaxis Verified 12/16/20 18:59 Physical Examination Gen: AOx3, NAD VSS stable at this time Integument: No obvious open lesions are appreciated throughout the cervical, thoracic or lumbar spine area. There are no open lesions visualized throughout the bilateral upper or lower extremities. There is no areas of fluctuance apprec iated throughout the cervical, thoracic or lumbar spine Palpation: Patient has no tenderness with palpation throughout the midline paraspinal region of the cervical, thoracic, lumbar, SI joints ROM: Full range of motion in all major muscle groups the bilateral upper extremities Full range of motion in all major muscle groups the left lower extremities Range of motion in the right lower extremity is difficult to assess, patient's leg median status post spasm when she attempts to utilize hip flexion,, knee flexion, knee extension. Plantar flexion, dorsiflexion, EHL, FHL are intact Sensory Exam: Senory exam to light touch is intact C5-T1 Senosry exam to light touch is intact L2-S1 Motor: 55 strength is appreciated in the bilateral upper extremities with shoulder abduction, forward elevation, elbow flexion, elbow extension, wrist extension, wrist flexion, procurement analyst strength 55 strength is appreciated in the left lower extremity with hip flexion, knee extension, knee flexion, plantar flexion, dorsiflexion, EHL, FHL Strength testing was very difficult to assess on the right lower extremity due to her leg spasming, she is able to flex the hip, flex and extend the knee against resistance. Reflexes: Negative Tessa's bilaterally, negative clonus bilaterally Special Test: Logroll maneuver of the bilateral lower extremities reproduces no groin pain Straight leg raise on the left side is negative Straight leg raise on the right hand side does reproduce that pulling/cramping feeling in the posterior aspect of the lower and upper leg Results - Labs Labs: H & H 12/16/20 Range/Units 18:05 Hgb 15.0 (11.4-16.0) gm/dL Hct 44.6 (34.0-46.0) % Coagulation 12/16/20 Range/Units 18:05 INR 0.9 (<1.2) Result Diagrams: 12/16/20 18:05 12/16/20 18:05 Assessment and Plan Assessment: Right upper extremity paresthesias Right lower extremity weakness History of lung cancer Other medical comorbidities Plan: I was able to discuss the case, this including no physical exam findings and imaging certainly attending Dr. Horan. No emergent orthopedic surgical intervention recommended at this time. Await MRI results of both cervical and lumbar spine for further recommendations Pain control, continue her current regimen GI and DVT prophylaxis per primary medical service Other medical specialty recommendations Further recommendations to follow Time with Patient: Less than 30
[2020-12-18] MEDS: SYMBICORT 80-4.5 MCG INHALER INHALATION SCH ×2 (12:28→20:25)
--- NOTE | 2020-12-18 16:16 | P.PN ---
<Iain Vernon - Last Filed: 12/18/20 16:13> Subjective Progress Note Date: 12/18/20 Hospital course: Patient is a 45-year-old female a past medical history of COPD not on home oxy gen dependent, history of lung cancer status post right upper lobectomy, nicotine dependence, chronic back and neck pain, and rheumatoid arthritis. He presented to the emergency department on 12/16/20 with a chief complaint of right upper and lower extremity weakness. Patient reports this reportedly began on December 08 in which she was seen and evaluated in the ER for concerns of possible CVA however declined admission at that time due to inability to obtain childcare and left AGAINST MEDICAL ADVICE. Patient reports that she did follow up outpatient with her PCP and even underwent an MRI, however the symptoms waxed and waned throughout the past 10 days and began to worsen yesterday evening. She reports she called her PCP whom instructed her to come to the emergency department. Patient was then seen and fully evaluated resulting in admission under our services with consultation to neurology. CT brain was completed negative for acute intercranial process. EKG was completed showing normal sinus rhythm at 88 bpm with no noted T-wave or ST abnormalities. Echocardiogram showing a normally asked 55-60% with borderline pulmonary hypertension. Covid 19 PCR negative. CBC, BMP, and coags all unremarkable. Magnesium slightly low at 1.7. Hemoglobin A1c normal findings at 5.5%. TSH 1.320. And cholesterol profile unremarkable. Physical exam: Patient seen and fully evaluated at the bedside this morning. Patient continues to have reports of weakness and shooting pain down right forearm as well as weakness and pain to right lateral and posterior leg upon movement. She is scheduled to go down for MRI this morning at 11:30 AM. Patient otherwise denies having any other complaints including headache, lightheadedness, dizziness, changes in or difficulties with speech, dysphasia, focal numbness, chest pain, palpitations, or shortness of breath. Vital signs reviewed and stable. General: Nontoxic, no distress and appears stated age. Derm: Skin warm and dry, normal coloration for ethnicity. Head: Atraumatic, normocephalic and symmetric. Eyes: EOMs intact, no lid lag, and anicteric sclera Mouth: no lip lesions, mucus membranes moist Cardiovascular: regular rate and rhythm with normal S1S2, no murmur, positive posterior tibial pulses bilaterally, and cap refill < 2 seconds. Lungs: Respirations even, regular, and unlabored on room air. Lungs CTA bilaterally, no rhonchi, no rales, no wheezing, and no accessory muscle usage. Abdominal: soft, nontender to palpation, no guarding, no appreciable organomegaly Ext: Movement and sensation fully intact. No gross muscle atrophy, no edema, no contractures Neuro: Speech clear, face symmetrical and CN II-XII grossly intact. GCS 15. Patient with right upper and right lower extremity weakness accompanied by pain. Patient reports shooting pain down right forearm upon assessment in shooting pains in right buttocks radiating laterally down right lateral hip, right latera l thigh wrapping into posterior thigh and ending in the bend of her knee. Movement and sensation remains intact. Psych: Alert and oriented to person, place, time, and situation. Appropriate and pleasant affect. Assessment and Plan of Care: Right upper and lower extremity weakness and pain -CT brain was completed negative for acute intercranial process. -EKG was completed showing normal sinus rhythm at 88 bpm with no noted T-wave or ST abnormalities. -Echocardiogram showing a normally asked 55-60% with borderline pulmonary h ypertension. -Neurology consulted -Orthospine consulted -MRI cervical and lumbar spine scheduled today for 11:30 AM -Continue aspirin, atorvastatin, and Plavix. -Symptomatic care and pain management. -Continue neuro checks and fall precautions Hypomagnesemia replaced -We will continue to monitor with repeat a.m. labs and replace abnormal electrolyte values as needed. COPD not in acute exacerbation -Continue Symbicort with when necessary albuterol nebulizer treatments as needed for wheezing and/or shortness of breath. -Provide patient with supplemental oxygenation as needed to maintain SpO2 equal to or greater than 90%, patient currently on room air. -Encourage use of incentive spirometry. History of lung cancer status post right upper lobectomy -Continue to follow up outpatient with oncology. Chronic neck and back pain with reported history of C4 and C5 injury -Symptomatic care and pain management -Neuro checks -Consult to neurosurgery CODE STATUS: Full Code DVT prophylaxis: Lovenox Discussed with: Patient and RN Anticipated discharge date: Clinical course to determine Anticipated discharge place: Home A total of 45 minutes was spent on the care of this complex patient more than 50% of the time was spent in counseling and care coordination. Objective - Vital Signs Vital signs: Vital Signs Temp 97.8 F 12/18/20 07:20 Pulse 73 12/18/20 07:20 Resp 16 12/18/20 09:04 BP 100/64 12/18/20 07:20 Pulse Ox 99 12/18/20 07:20 Intake & Output 12/17/20 12/18/20 12/18/20 18:59 06:59 18:59 Intake Total 480 Balance 480 Intake: Oral 480 Other: Voiding Method Toilet # Voids 1 3 # Bowel Movements 0 - Labs CBC & Chem 7: 12/16/20 18:05 12/16/20 18:05 <Kimmy Bansal - Last Filed: 12/18/20 19:43> Objective - Vital Signs Vital signs: Vital Signs Temp 97.9 F 12/18/20 13:50 Pulse 79 12/18/20 13:50 Resp 18 12/18/20 13:50 BP 99/64 12/18/20 13:50 Pulse Ox 99 12/18/20 13:50 Intake & Output 12/18/20 12/18/20 12/19/20 06:59 18:59 06:59 Other: Voiding Method Toilet # Voids 3 1 - Labs CBC & Chem 7: 12/16/20 18:05 12/16/20 18:05 Assessment and Plan Assessment: Iain Vernon NP rendered care for this patient independently, reviewed the findings and plan as documented in the note above. I did not physically speak with or examine the patient on this date.
[2020-12-18] MEDS: ATORVASTATIN 20 MG TAB PO SCH (20:07)
[2020-12-18] MEDS: SODIUM CHLORIDE 0.9% 1,000 ML IV SCH (20:07)
[2020-12-19] MEDS: SYMBICORT 80-4.5 MCG INHALER INHALATION SCH ×2 (08:48→20:30)
[2020-12-19] MEDS: FOLIC ACID 1 MG TAB PO SCH (09:01)
[2020-12-19] MEDS: CLOPIDOGREL 75 MG TAB PO SCH (09:01)
[2020-12-19] MEDS: QUEtiapine 25 MG TAB PO SCH ×2 (09:01→20:02)
[2020-12-19] MEDS: ASPIRIN 325 MG TAB PO SCH (09:01)
[2020-12-19] MEDS: buPROPion SR 100 MG TABLET.ER PO SCH (09:01)
[2020-12-19] MEDS: FAMOTIDINE 20 MG TAB PO SCH (09:01)
[2020-12-19] MEDS: DOCUSATE 100 MG CAP PO SCH (09:01)
[2020-12-19] MEDS: ENOXAPARIN 40 MG/0.4 ML SYRINGE SQ SCH (09:02)
[2020-12-19] MEDS: GABAPENTIN 400 MG CAP PO SCH ×3 (09:02→22:56)
[2020-12-19] MEDS: LORATADINE 10 MG TAB PO SCH (09:02)
--- NOTE | 2020-12-19 09:23 | P.PN ---
<Iain Vernon - Last Filed: 12/19/20 09:19> Subjective Progress Note Date: 12/19/20 Hospital course: Patient is a 45-year-old female a past medical history of COPD not on home oxy gen dependent, history of lung cancer status post right upper lobectomy, nicotine dependence, chronic back and neck pain, and rheumatoid arthritis. He presented to the emergency department on 12/16/20 with a chief complaint of right upper and lower extremity weakness. Patient reports this reportedly began on December 08 in which she was seen and evaluated in the ER for concerns of possible CVA however declined admission at that time due to inability to obtain childcare and left AGAINST MEDICAL ADVICE. Patient reports that she did follow up outpatient with her PCP and even underwent an MRI, however the symptoms waxed and waned throughout the past 10 days and began to worsen yesterday evening. She reports she called her PCP whom instructed her to come to the emergency department. Patient was then seen and fully evaluated resulting in admission under our services with consultation to neurology. CT brain was completed negative for acute intercranial process. EKG was completed showing normal sinus rhythm at 88 bpm with no noted T-wave or ST abnormalities. Echocardiogram showing a normally asked 55-60% with borderline pulmonary hypertension. Covid 19 PCR negative. CBC, BMP, and coags all unremarkable. Magnesium slightly low at 1.7. Hemoglobin A1c normal findings at 5.5%. TSH 1.320. And cholesterol profile unremarkable. Physical exam: Patient seen and fully evaluated at the bedside this morning. Patient continues to have reports of weakness and shooting pain down right forearm as well as weakness and pain to right lateral and posterior leg upon movement. In addition to this report of weakness and pains patient states she has now experiencing trembling and shaking sensations throughout her right leg and right upper extremity upon rest. We will resume patient's home Flexeril. No resting tremors noted at this time. Patient did have shaking of right lower extremity up on attempts of hip flexion and straight leg raise. Continue to await MRI results. Patient otherwise denies having any other complaints including head ache, lightheadedness, dizziness, changes in or difficulties with speech, dysphasia, focal numbness, chest pain, palpitations, or shortness of breath. Vital signs reviewed and stable. General: Nontoxic, no distress and appears stated age. Derm: Skin warm and dry, normal coloration for ethnicity. Head: Atraumatic, normocephalic and symmetric. Eyes: EOMs intact, no lid lag, and anicteric sclera Mouth: no lip lesions, mucus membranes moist Cardiovascular: regular rate and rhythm with normal S1S2, no murmur, positive posterior tibial pulses bilaterally, and cap refill < 2 seconds. Lungs: Respirations even, regular, and unlabored on room air. Lungs CTA bilaterally, no rhonchi, no rales, no wheezing, and no accessory muscle usage. Abdominal: soft, nontender to palpation, no guarding, no appreciable organomegaly Ext: Movement and sensation fully intact. No gross muscle atrophy, no edema, no contractures Neuro: Speech clear, face symmetrical and CN II-XII grossly intact. GCS 15. Patient with right upper and right lower extremity weakness accompanied by pain. Patient reports shooting pain down right forearm upon assessment in shooting pains in right buttocks radiating laterally down right lateral hip, right lateral thigh wrapping into posterior thigh and ending in the bend of her knee. Movement and sensation remains intact. Psych: Alert and oriented to person, place, time, and situation. Appropriate and pleasant affect. Assessment and Plan of Care: Right upper and lower extremity weakness and pain -CT brain was completed negative for acute intercranial process. -EKG was completed showing normal sinus rhythm at 88 bpm with no noted T-wave or ST abnormalities. -Echocardiogram showing a normally asked 55-60% with borderline pulmonary hypertension. -Neurology consulted -Orthospine consulted -MRI cervical and lumbar spine completed, awaiting results. -Continue aspirin, atorvastatin, and Plavix. -Symptomatic care and pain management. -Continue neuro checks and fall precautions Hypomagnesemia replaced -We will continue to monitor with repeat a.m. labs and replace abnormal electrolyte values as needed. COPD not in acute exacerbation -Continue Symbicort with when necessary albuterol nebulizer treatments as needed for wheezing and/or shortness of breath. -Provide patient with supplemental oxygenation as needed to maintain SpO2 equal to or greater than 90%, patient currently on room air. -Encourage use of incentive spirometry. History of lung cancer status post right upper lobectomy -Continue to follow up outpatient with oncology. Chronic neck and back pain with reported history of C4 and C5 injury -Symptomatic care and pain management -Neuro checks -Consult to neurosurgery CODE STATUS: Full Code DVT prophylaxis: Lovenox Discussed with: Patient and RN Anticipated discharge date: Clinical course to determine Anticipated discharge place: Home A total of 45 minutes was spent on the care of this complex patient more than 50% of the time was spent in counseling and care coordination. Objective - Vital Signs Vital signs: Vital Signs Temp 98.0 F 12/19/20 07:20 Pulse 66 12/19/20 07:20 Resp 18 12/19/20 07:20 BP 100/67 12/19/20 07:20 Pulse Ox 99 12/19/20 07:20 Intake & Output 12/18/20 12/19/20 12/19/20 18:59 06:59 18:59 Other: Voiding Method Toilet # Voids 1 2 - Labs CBC & Chem 7: 12/16/20 18:05 12/16/20 18:05 <Kimmy Bansal - Last Filed: 12/19/20 18:29> Subjective Iain Vernon NP rendered care for this patient independently, reviewed the findings and plan as documented in the note above. I did not physically speak with or examine the patient on this date. Objective - Vital Signs Vital signs: Vital Signs Temp 98.6 F 12/19/20 13:45 Pulse 89 12/19/20 13:45 Resp 16 12/19/20 13:45 BP 96/60 12/19/20 13:45 Pulse Ox 96 12/19/20 13:45 Intake & Output 12/18/20 12/19/20 12/19/20 18:59 06:59 18:59 Other: Voiding Method Toilet Toilet # Voids 1 2 3 # Bowel Movements 0 - Labs CBC & Chem 7: 12/19/20 10:06 12/19/20 10:06 Labs: Abnormal Lab Results - Last 24 Hours (Table) 12/19/20 12/19/20 Range/Units 10:06 10:06 MCV 100.1 H (80.0-100.0) fL Chloride 108 H (98-107) mmol/L
[2020-12-19 10:32] LABS: HCT 40.3 % (34.0-46.0); HGB 12.8 gm/dL (11.4-16.0); MCH 31.9 pg (25.0-35.0); MCHC 31.8 g/dL (31.0-37.0); MCV 100.1 fL (80.0-100.0); Mean Platelet Volume 7.1; Platelet Count 271 k/uL (150-450); RBC 4.03 m/uL (3.80-5.40); RDW 13.6 % (11.5-15.5); WBC 5.6 k/uL (3.8-10.6)
[2020-12-19 10:45] LABS: African American GFR (CKD) >90 (>60 ml/min/1.73 sqM); Anion Gap 6 mmol/L; Blood Urea Nitrogen 16 mg/dL (7-17); Calcium 9.5 mg/dL (8.4-10.2); Carbon Dioxide 27 mmol/L (22-30); Chloride 108 mmol/L (98-107); Glucose 82 mg/dL (74-99); Magnesium 1.9 mg/dL (1.6-2.3); Non-African American GFR(CKD) >90 (>60 ml/min/1.73 sqM); Potassium 4.7 mmol/L (3.5-5.1); Sodium 141 mmol/L (137-145)
[2020-12-19] MEDS: CYCLOBENZAPRINE 10 MG TAB PO SCH ×3 (10:57→22:56)
--- NOTE | 2020-12-19 13:34 | P.PN ---
Subjective Progress Note Date: 12/19/20 The patient is seen at bedside and continues to have right sided weakness. She has thing pain over the entire right upper and lower extremity and weird sensation and feels paresthesia of bilateral hands. Per primary team she said patient was complaining of tremor but primary did not appreciate it. Patient denies of any loss of consciousness, urinary bowel incontinence, tongue bite. She denies history of seizures. I spoke with the primary team and still waiting to obtain report of MRI Brain. Objective - Vital Signs Vital signs: Vital Signs Temp 98.0 F 12/19/20 07:20 Pulse 66 12/19/20 07:20 Resp 18 12/19/20 07:20 BP 100/67 12/19/20 07:20 Pulse Ox 99 12/19/20 07:20 Intake & Output 12/18/20 12/19/20 12/19/20 18:59 06:59 18:59 Other: Voiding Method Toilet Toilet # Voids 1 2 - Exam GENERAL: The patient is lying in bed and is mild to moderate acute distress. NEUROLOGICAL: Higher mental function: The patient is awake, alert, oriented to self, place and time. Patient is following commands. No aphasia and no neglect. Cranial nerves: The pupils are round, equal and reactive to light and accommodation. Visual robbins are full to confrontation throughout. Extraocular movement is intact no nystagmus is noted. Facial sensation is normal to touch throughout. The facial strength is normal throughout. Hearing is normal bilate rally to hand rub. Tongue is midline and moved [id number] without any difficulty. No dysarthria is noted. Shoulder shrug is normal bilaterally. Motor: Gait is deferrede. The strength is limited to assess because of her pain over the right side appears right upper is 4+ and right upper office cleaner is 4+. While right lower is antigravity without drift and limited because of pain. While the left side was 5 out of 5. Patient has normal bulk throughout. Cerebellum: Normal finger to nose bilaterally. Sensation: Sensation is normal to touch throughout. Reflexes (right/left): Right brachioradialis and triceps are 1+. Otherwise 2+ throughout. Plantars are downgoing bilaterally. WORK-UP: Lipid panel is the triglyceride 132, cholesterol 1:30, LDL 57 and HDL 46. TSH is 1.320. Vitamin B12 is 214 which is considered very low normal (Normal is 200-944). Folate 3.8 which is deficient (normal is >5.38). Hemoglobin A1c is 5.5 which is considered within normal limits. Lipid panel: Triglyceride 132, cholesterol 1:30, LDL 57 and HDL 46. Nichols virus PCR was not detected CT of the head is reported as no acute process. 2D echo: Left ventricular wall thickness is normal. EF 55-60%. Normal left atrium size. Of note upon reviewing the patient medical record the patient is attentive to the emergency department on 12/08/2020 for right lower extremity weakness as well as it's reported right upper extremity weakness had CT of the head on 12/08/2020 is reported as right MCA appears more dense than the left. Symptom all G however would suggest left-sided etiology. Case was discussed with the emergency room physician. Right maxillary sinus opacification with some opacification of the nasal passage and ethmoid air cells. CT angiography of the head and neck on the 12/08/2020 is reported as no flow limiting stenosis bilateral carotid bifurcation. Normal belkofski of Bhat. Variation are discussed above. It is noted by the ED attending the she has not TPA since the wake-up stroke. The patient left AMA. - Labs CBC & Chem 7: 12/19/20 10:06 12/19/20 10:06 Labs: Abnormal Lab Results - Last 24 Hours (Table) 12/19/20 12/19/20 Range/Units 10:06 10:06 MCV 100.1 H (80.0-100.0) fL Chloride 108 H (98-107) mmol/L Assessment and Plan Assessment: * Subacute right worsening of right sided weakness (lower > upper). Symptoms started about one week ago and worsening. She is also having paresthesia of upper hands and having pain and "weird sensation and pain" over the right side. (she presented to our ED on 12/08/20 and left AMA. She had recent MRI Brain at her PCP office and unknown result). Unlikely stroke. Rule out cervical or lumbar etiology. 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 * Vitamin B12 is very low (214 which is considered very low normal (Normal levels is 200-944)). * Folate deficient (3.8 (normal is >5.38)). * History of lumbar injection in the past * Lung cancer status post right upper lobectomy s/p chemotherapy and last about >1 year ago. * COPD Plan: * Please obtain MRI of the brain report that was done recently as an outpatient. I spoke with the primary team and still waiting for the report. If unable to get hold of it, then will get repeat MRI Brain w/ and w/o. * MRI Cervical and Lumbar: Pending final result but they do not feel anything significant. * I ordered urgent EEG: To rule out any seizure (because of fluctuation of her symptoms). * Started the patient of Vitamin B12 IM 1000mcg today and tomorrow then PO daily after that. * Continue folic acid 1mg daily. * Patient is on aspirin 325mg daily as well as Plavix 75mg daily. We'll continue the dual antiplatelets for now and if negative for stroke then dual antiplateletes is not needed from neurological perspective. Continue Lipitor 20 mg daily at bedtime * Every 4 hours neuro checks * On cardiac monitoring * Physical therapy and occupation therapy are consulted. * Orthopedic surgery team is on board. * We'll defer the rest of the medical management to the primary team. The plan is discussed with the primary team. Dr. Wray will start neurology service tomorrow (12/20/20) in AM. Haile Shields M.D. Neuro-hospitalist Time with Patient: Less than 30
--- NOTE | 2020-12-19 14:33 | MR ---
EXAMINATION TYPE: MR cspine/lspine wo/w con DATE OF EXAM: 12/18/2020 COMPARISON: Single view HISTORY: Right upper and lower extremity weakness, hx lung cancer. CONTRAST: Standard multiplanar, multisequence MRI departmental protocol utilizing 7.5 mL intravenous Gadavist g adolinium contrast. Cervical vertebra have normal alignment. There is some degenerative disc space narrowing at C5-6 and C6-7. There is no compression fracture. There is minimal posterior disc bulging at C4-5 and C5-6. The re is developmentally adequate spinal canal. Canal measures 8 mm at C5-6 which is the narrowest point . Cervical spinal cord has normal signal pattern. There is no edema. Brainstem is intact. Posterior e lements are intact. Contrast images show no pathologic enhancement of the cervical spine. Prevertebra l soft tissues are intact. There is some mild anterior spurring at C5-6 and C6-7. Lumbar vertebra have normal alignment. There is mild narrowing at L5-S1 disc space. Spinal canal appe ars normal. There is no lumbar disc herniation. There is no compression fracture. Lumbar nerve roots appear normal. The neural foramina appear normal. Contrast images show no pathologic enhancement. Pos terior elements are intact. There is no evidence of lumbar paraspinal mass. IMPRESSION: Minor degenerative disc changes in the lower cervical spine. No spinal stenosis. Negative MR scan of the lumbar spine. No evidence of metastatic disease.
[2020-12-19] MEDS ORDERED: CYANOCOBALAMIN 1,000 MCG/ML 1 ML VIAL IM SCH (15:00)
[2020-12-19 19:24] VITALS: RESP 17
[2020-12-19] MEDS: ATORVASTATIN 20 MG TAB PO SCH (20:02)
[2020-12-19] MEDS: SODIUM CHLORIDE 0.9% 1,000 ML IV SCH (20:03)
[2020-12-20 02:22] VITALS: BP 96/59; PULSE 77; TEMP 98.1
--- NOTE | 2020-12-20 13:43 | P.DS ---
<Iain Vernon - Last Filed: 12/20/20 13:42> Providers Expected date of discharge: 12/20/20 Hospital Course: THIS IS NOT A DISCHARGE SUMMARY ONLY A SUMMARY OF CARE PATIENT LEFT AGAINST MEDICAL ADVICE: Right upper and lower extremity weakness and pain Hypomagnesemia replaced COPD not in acute exacerbation History of lung cancer status post right upper lobectomy Chronic neck and back pain with reported history of C4 and C5 injury Hospital Course: Patient is a 45-year-old female a past medical history of COPD not on home oxygen dependent, history of lung cancer status post right upper lobectomy, nicotine dependence, chronic back and neck pain, and rheumatoid arthritis. He presented to the emergency department on 12/16/20 with a chief complaint of right upper and lower extremity weakness. Patient reports this reportedly began on December 08 in which she was seen and evaluated in the ER for concerns of possible CVA however declined admission at that time due to inability to obtain childcare and left AGAINST MEDICAL ADVICE. Patient reports that she did follow up outpatient with her PCP and even underwent an MRI, however the symptoms waxed and waned throughout the past 10 days and began to worsen yesterday evening. She reports she called her PCP whom instructed her to come to the emergency department. Patient was then seen and fully evaluated resulting in admission under our services with consultation to neurology. CT brain was completed negative for acute intercranial process. EKG was completed showing normal sinus rhythm at 88 bpm with no noted T-wave or ST abnormalities. Echocardiogram showing a normally asked 55-60% with borderline pulmonary hypertension. Covid 19 PCR negative. CBC, BMP, and coags all unremarkable. Magnesium slightly low at 1.7. Hemoglobin A1c normal findings at 5.5%. TSH 1.320. And cholesterol profile unremarkable. MRI cervical and lumbar spine revealing minor degenerative disc changes in the lower cervical spine with no evidence of spinal stenosis and negative MRI of the lumbar spine with no evidence of metastatic disease. During hospital stay patient was seen and evaluated by fire crew specialist, neurologist, as well as our medical team. Patient was awaiting EEG to be completed this morning however I was informed upon arrival at 7 AM that patient decided to leave AGAINST MEDICAL ADVICE earlier in the morning. Plan - Discharge Summary Discharge Rx Participant: Yes New Discharge Prescriptions: No Action QUEtiapine FUMARATE [SEROquel XR] 150 mg PO HS traMADol HCL [Ultram] 50 mg PO Q6H PRN PRN Reason: Pain HYDROcodone/APAP 10-325MG [[place] 10-325] 1 tab PO Q6H PRN PRN Reason: Pain ALPRAZolam [Xanax] 1 mg PO Q8H PRN PRN Reason: Anxiety SUMAtriptan succinate [Imitrex] 50 mg PO BID PRN PRN Reason: Migraine Headache Cyclobenzaprine [Flexeril] 10 mg PO TID Albuterol Nebulized [Ventolin Nebulized] 2.5 mg INHALATION RT-Q6H PRN PRN Reason: Shortness Of Breath Aspirin 325 mg PO DAILY EPINEPHrine [Epipen 2-Danny] 0.3 mg IM ONCE PRN PRN Reason: Allergic Reaction Lidocaine 4% Cream [Lmx 4] 1 applic TOPICAL QID PRN PRN Reason: PAINFUL JOINTS Albuterol Sulfate [Proair Hfa] 1 - 2 puff INHALATION RT-Q6H PRN PRN Reason: Shortness Of Breath buPROPion SR [Wellbutrin SR] 100 mg PO DAILY ondansetron HCL [Zofran] 8 mg PO Q8HR PRN PRN Reason: Nausea Prochlorperazine [Compazine] 10 mg PO Q8H PRN PRN Reason: Nausea Famotidine 20 mg PO DAILY Aspirin 325 mg PO DAILY #30 tab Cetirizine HCl 10 mg PO DAILY Gabapentin [Neurontin] 400 mg PO TID Folic Acid 1 mg PO DAILY Docusate [Colace] 100 mg PO DAILY Cyanocobalamin [Vitamin B-12 Injection] 1,000 mcg SQ Q30D Clopidogrel [Plavix] 75 mg PO DAILY #30 tablet Fluticasone/Salmeterol [Advair 250-50 Diskus] 1 puff INHALATION RT-BID Discharge Medication List ALPRAZolam [Xanax] 1 mg PO Q8H PRN 11/02/16 [History] HYDROcodone/APAP 10-325MG [Talmage 10-325] 1 tab PO Q6H PRN 11/02/16 [History] QUEtiapine FUMARATE [SEROquel XR] 150 mg PO HS 11/02/16 [History] traMADol HCL [Ultram] 50 mg PO Q6H PRN 11/02/16 [History] SUMAtriptan succinate [Imitrex] 50 mg PO BID PRN 01/25/17 [History] Albuterol Nebulized [Ventolin Nebulized] 2.5 mg INHALATION RT-Q6H PRN 04/03/17 [History] Cyclobenzaprine [Flexeril] 10 mg PO TID 04/03/17 [History] Aspirin 325 mg PO DAILY 06/18/17 [History] EPINEPHrine [Epipen 2-Danny] 0.3 mg IM ONCE PRN 01/23/18 [History] Lidocaine 4% Cream [Lmx 4] 1 applic TOPICAL QID PRN 01/23/18 [History] Albuterol Sulfate [Proair Hfa] 1 - 2 puff INHALATION RT-Q6H PRN 12/08/20 [History] Aspirin 325 mg PO DAILY #30 tab 12/08/20 [Rx] Clopidogrel [Plavix] 75 mg PO DAILY #30 tablet 12/08/20 [Rx] Cyanocobalamin [Vitamin B-12 Injection] 1,000 mcg SQ Q30D 12/08/20 [History] Docusate [Colace] 100 mg PO DAILY 12/08/20 [History] Famotidine 20 mg PO DAILY 12/08/20 [History] Folic Acid 1 mg PO DAILY 12/08/20 [History] Gabapentin [Neurontin] 400 mg PO TID 12/08/20 [History] Prochlorperazine [Compazine] 10 mg PO Q8H PRN 12/08/20 [History] buPROPion SR [Wellbutrin SR] 100 mg PO DAILY 12/08/20 [History] ondansetron HCL [Zofran] 8 mg PO Q8HR PRN 12/08/20 [History] Cetirizine HCl 10 mg PO DAILY 12/16/20 [History] Fluticasone/Salmeterol [Advair 250-50 Diskus] 1 puff INHALATION RT-BID 12/16/20 [History] Follow up Appointment(s)/Referral(s): Bryan Caputo MD [Primary Care Provider] - 1-2 days Discharge Disposition: Left Against Medical Advice <Kimmy Bansal - Last Filed: 12/20/20 17:26> Providers Date of admission: 12/16/20 19:24 Attending physician: Gely Pena MD Consults: 12/16/20 19:35 Consult Physician Routine Consulting Provider: Haile Shields Consult Reason/Comments: RLE weakness Do you want consulting provider notified?: Yes 12/17/20 13:30 Consult Physician Routine Consulting Provider: Bertrand Horan Consult Reason/Comments: Hx C4-C5 injury previously receiving injections now w RUE/RLE pain/weakness Do you want consulting provider notified?: Yes Primary care physician: Bryan Caputo [facility] Course: Iain Vernon NP rendered care for this patient independently, reviewed the findings and plan as documented in the note above. I did not physically speak with or examine the patient on this date.
[2020-12-21] MEDS ORDERED: CYANOCOBALAMIN 500 MCG TAB PO SCH (09:00)
== END 2020-12-20 05:27 | disposition left against medical advice (07) ==
LOC: EC 16:53 → 6NMEDSUR 19:24
PROVIDERS: ADMIT Internal Medicine; ATTEND Internal Medicine
DX: R53.1 Weakness (principal); E83.42 Hypomagnesemia; Z20.822 Contact with and (suspected) exposure to COVID-19; J44.9 Chronic obstructive pulmonary disease, unspecified; Z53.29 Procedure and treatment not carried out because of patient's decision for other reasons; Z90.2 Acquired absence of lung [part of]; I27.20 Pulmonary hypertension, unspecified; G89.29 Other chronic pain; M54.2 Cervicalgia; M54.9 Dorsalgia, unspecified; Z85.118 Personal history of other malignant neoplasm of bronchus and lung; Z92.21 Personal history of antineoplastic chemotherapy; Z79.51 Long term (current) use of inhaled steroids; Z79.02 Long term (current) use of antithrombotics/antiplatelets; Z79.899 Other long term (current) drug therapy; Z79.82 Long term (current) use of aspirin
CPT/HCPCS: 96372; 99285; 36415; 94640 ×4; 93005; 93306; 97116; 97162; 80061; 80048 ×2; 84443; 82607; 82746; 83735 ×2; 85025; 85027; 85610; 85730; 83036; 87635; 70450; 72156; 72158; G0378 ×5; J3420; S0106 ×3; A9585

== ENCOUNTER → 2024-10-24 | Outpatient (CLI) | payer OTHER ==
--- NOTE | 2024-10-24 15:18 | MM ---
Reason for Exam: Screening (asymptomatic). Patient History: Menarche at age 13. First Full-Term at age 16. Excisional Biopsy on the Left side. Excisional Biopsy on the Right side. Risk Values: Deanne 5 year model risk: 1.2%. NCI Lifetime model risk: 9.9%. Tissue Density: The breasts are heterogeneously dense, which may obscure small masses. Findings: Analyzed By CAD. Asymmetry upper outer quadrant middle depth on MLO view and posterior depth on CC view. Left breast dense glandular tissue in the upper outer aspect. focal asymmetry posterior depth slightly lateral upper aspect on CC view maximally 5.9 cm nipple measuring 5 mm. Overall Assessment: Incomplete: need additional imaging evaluation, BI-RAD 0 Management: Diagnostic Mammogram of both breasts. Diagnostic Breast Ultrasound of the left breast. [facility] will attempt to contact patient to return for supplemental views and ultrasound if indicated. Patient should continue monthly self-breast exams. A clinical breast exam by your physician is recommended on an annual basis. This exam should not preclude additional follow-up of suspicious palpable abnormalities. Note on Deanne scores and lifetime risk: 1. A Deanne score greater than 3% is considered moderate risk. If this is the case, consider specialist referral to assess eligibility for a risk reducing agent. 2. If overall lifetime risk for the development of breast cancer is 20% or higher, the patient may qualify for future screening with alternating mammogram and breast MRI. [facility], , 10/24/2024 3:14 PM. Electronically signed and approved by: John Damico DO
== END | disposition home or self-care (01) ==
LOC: RADMAMWWP 12:57
PROVIDERS: ATTEND Family Medicine
DX: Z12.31 Encounter for screening mammogram for malignant neoplasm of breast (principal); R92.333 Mammographic heterogeneous density, bilateral breasts
CPT/HCPCS: 77067